=== PATIENT | female | born 1950 | race Caucasian/White ===

== ENCOUNTER 2018-01-05 14:09 | Inpatient (IN) | payer MEDICARE, MEDICAID ==
[~2018-01-05] VITALS: Ht 157.5 cm; Wt 74.8 kg
[2018-01-05 14:30] VITALS: BP 75/49
--- NOTE | 2018-01-05 15:12 | Diagnostic Imaging Report ---
Indication: Unresponsive Comparison: None A single view chest radiograph was obtained. Findings: There is a left pleural effusion. Heart size is normal. Lung volumes are low bilaterally. The bones are osteopenic. IMPRESSION: Small left pleural effusion
[2018-01-05 16:30] VITALS: BP 75/36
[2018-01-05 16:33] LABS: APPEARANCE,URINE SLIGHTLY CLOUDY; BILIRUBIN, URINE NEGATIVE (NEGATIVE); GLUCOSE, URINE (UA) NEGATIVE (NEGATIVE); KETONES,URINE 4+ (NEGATIVE); LEUKOCYTE ESTERASE ,URINE 3+ (NEGATIVE); NITRITE,URINE NEGATIVE (NEGATIVE); PH,URINE 7 (4.5-8.0); PROTEIN,URINE 2+ (NEGATIVE); UROBILINOGEN,URINE NORMAL MG/DL (0.0-1.0)
[2018-01-05 16:39] LABS: HEMATOCRIT 49.6 % (37.0-47.0); HEMOGLOBIN 16.4 G/DL (12.0-16.0); MEAN CORPUSCULAR VOLUME 92 FL (80-99); PLATELET COUNT 318 K/UL (150-450); RED BLOOD COUNT 5.39 M/UL (4.20-5.40); RED CELL DISTRIBUTION WIDTH 13.4 % (11.6-14.8); WHITE BLOOD COUNT 18.7 K/UL (4.8-10.8)
[2018-01-05 16:40] LABS: COLOR,URINE YELLOW
[2018-01-05 16:42] LABS: ANION GAP 20 mmol/L (5-15); BLOOD UREA NITROGEN 46 mg/dL (7-18); CALCIUM 9.5 MG/DL (8.5-10.1); CARBON DIOXIDE 18 MMOL/L (21-32); CHLORIDE 105 MMOL/L (98-107); CREATININE 1.8 MG/DL (0.55-1.30); POTASSIUM 4.2 MMOL/L (3.5-5.1); SODIUM 143 MMOL/L (136-145)
[2018-01-05 16:56] LABS: ALANINE AMINOTRANSFERASE 23 U/L (12-78); ALBUMIN 3.5 G/DL (3.4-5.0); ALBUMIN/GLOBULIN RATIO 0.7 (1.0-2.7); ALKALINE PHOSPHATASE 108 U/L (46-116); ASPARTATE AMINO TRANSFERASE 15 U/L (15-37); BILIRUBIN,TOTAL 0.7 MG/DL (0.2-1.0); CKMB 0.9 NG/ML (0.0-3.6); CREATINE KINASE 29 U/L (26-308)
[2018-01-05] MEDS ORDERED: cefTRIAXone 1 GM in NS 55 ML IVPB ONE (17:00)
[2018-01-05 17:30] VITALS: BP 95/38
[2018-01-05] MEDS ORDERED: UNOBMED (17:39)
--- NOTE | 2018-01-05 18:34 | Emergency Room Report ---
History of Present Illness General Chief Complaint: General Complaint Source: Medical Record, Caregiver Present Illness HPI 67-year-old female presents ED for evaluation. Hris Manager at bedside. States that patient was out today and became suddenly nonverbal and less active than baseline. Patient does have a history of cognitive delay. Patient states she does feel depressed. States that someone in the facility that she was dating is leaving. Denies any suicidal or homicidal ideation. Denies any headache. Denies any chest pain shortness of breath. Denies any fevers or chills. No other aggravating relieving factors. Denies any other associated symptoms Allergies: Coded Allergies: No Known Allergies (Unverified , 01/05/18) Patient History Past Medical History: DM, other - MR Past Surgical History: none Pertinent Family History: none Social History: Denies: smoking, alcohol use, drug use Now: No Immunizations: UTD Reviewed Nursing Documentation: PMH: Agreed; PSxH: Agreed Nursing Documentation-PMH Hx Diabetes: Yes Review of Systems All Other Systems: negative except mentioned in HPI Physical Exam Vital Signs Date Time Temp Pulse Resp B/P (MAP) Pulse Ox O2 Delivery O2 Flow Rate FiO2 01/05/18 13:57 98.4 80 18 110/80 97 Room Air 98.4 Sp02 EP Interpretation: reviewed, normal General Appearance: no apparent distress, alert, GCS 15, non-toxic Head: normocephalic, atraumatic Eyes: bilateral eye normal inspection, bilateral eye PERRL ENT: hearing grossly normal, normal pharynx, no angioedema, normal voice Neck: full range of motion, supple/symm/no masses Respiratory: chest non-tender, lungs clear, normal breath sounds, speaking full sentences Cardiovascular #1: regular rate, rhythm, no edema Cardiovascular #2: 2+ carotid (R), 2+ carotid (L), 2+ radial (R), 2+ radial (L) , 2+ dorsalis pedis (R), 2+ dorsalis pedis (L) Gastrointestinal: normal bowel sounds, non tender, soft, non-distended, no guarding, no rebound Rectal: deferred Genitourinary: normal inspection, no CVA tenderness Musculoskeletal: back normal, gait/station normal, normal range of motion, non- tender Neurologic: alert, oriented x3, responsive, motor strength/tone normal, sensory intact, speech normal Psychiatric: judgement/insight normal, memory normal, mood/affect normal, no suicidal/homicidal ideation Reflexes: 3+ bicep (R), 3+ bicep (L), 3+ tricep (R), 3+ tricep (L), 3+ knee (R) , 3+ knee (L) Skin: normal color, no rash, warm/dry, well hydrated Lymphatic: no adenopathy Medical Decision Making Diagnostic Impression: Primary Impression: Weakness Additional Impressions: UTI (urinary tract infection) Qualified Codes: N39.0 - Urinary tract infection, site not specified Renal insufficiency ER Course Hospital Course 67-year-old female presenting to ED with generalized weakness, less active Differential diagnoses include: Pneumonia, UTI, sepsis, dehydration Clinical course Patient placed on stretcher. On library monitor with stable vitals are ED course. After initial history and physical, I ordered labs, IV fluids, EKG, chest x-ray, blood cultures, UA. Labs - BUN/Cr elevated, noted leukocytosis, troponins negative, UA grossly positive for UTI, lactic ok CXR - L pleural effusion EKG - NSR, no acute ischemic changes interpreted by me Abx given. given IVFs. Case discussed with Dr Murillo and they agreed to admit patient to their service for further care and support I feel this is a highly complex case requiring extensive working including EKG/ Rhythm strip, Xray/CT/US, Blood/urine lab work, repeat exams while in ED, and administration of strong opiates/narcotics for pain control, admission to hospital or close patient follow up. Diagnosis - UTI, generalized weakness, renal insufficiency Patient admitted to floor in serious condition Labs Test 01/05/18 15:35 White Blood Count 18.7 K/UL (4.8-10.8) Red Blood Count 5.39 M/UL (4.20-5.40) Hemoglobin 16.4 G/DL (12.0-16.0) Hematocrit 49.6 % (37.0-47.0) Mean Corpuscular Volume 92 FL (80-99) Mean Corpuscular Hemoglobin 30.4 PG (27.0-31.0) Mean Corpuscular Hemoglobin Concent 33.0 G/DL (32.0-36.0) Red Cell Distribution Width 13.4 % (11.6-14.8) Platelet Count 318 K/UL (150-450) Mean Platelet Volume 6.9 FL (6.5-10.1) Neutrophils (%) (Auto) % (45.0-75.0) Lymphocytes (%) (Auto) % (20.0-45.0) Monocytes (%) (Auto) % (1.0-10.0) Eosinophils (%) (Auto) % (0.0-3.0) Basophils (%) (Auto) % (0.0-2.0) Differential Total Cells Counted 100 Neutrophils % (Manual) 86 % (45-75) Lymphocytes % (Manual) 7 % (20-45) Monocytes % (Manual) 6 % (1-10) Eosinophils % (Manual) 0 % (0-3) Basophils % (Manual) 0 % (0-2) Band Neutrophils 1 % (0-8) Platelet Estimate Adequate Platelet Morphology Normal Red Blood Cell Morphology Normal Urine Color Yellow Urine Appearance Slightly cloudy Urine pH 7 (4.5-8.0) Urine Specific [place] 1.010 (1.005-1.035) Urine Protein 2+ (NEGATIVE) Urine Glucose (UA) Negative (NEGATIVE) Urine Ketones 4+ (NEGATIVE) Urine Occult Blood 2+ (NEGATIVE) Urine Nitrite Negative (NEGATIVE) Urine Bilirubin Negative (NEGATIVE) Urine Urobilinogen Normal MG/DL (0.0-1.0) Urine Leukocyte Esterase 3+ (NEGATIVE) Urine RBC 5-10 /HPF (0 - 2) Urine WBC 20-30 /HPF (0 - 2) Urine Squamous Epithelial Cells Moderate /LPF (NONE/OCC) Urine Amorphous Sediment Few /LPF (NONE) Urine Bacteria Many /HPF (NONE) Sodium Level 143 MMOL/L (136-145) Potassium Level 4.2 MMOL/L (3.5-5.1) Chloride Level 105 MMOL/L (98-107) Carbon Dioxide Level 18 MMOL/L (21-32) Anion Gap 20 mmol/L (5-15) Blood Urea Nitrogen 46 mg/dL (7-18) Creatinine 1.8 MG/DL (0.55-1.30) Estimat Glomerular Filtration Rate 28.3 mL/min (>60) Glucose Level 82 MG/DL (74-106) Lactic Acid Level 1.20 mmol/L (0.4-2.0) Calcium Level 9.5 MG/DL (8.5-10.1) Total Bilirubin 0.7 MG/DL (0.2-1.0) Aspartate Amino Transf (AST/SGOT) 15 U/L (15-37) Alanine Aminotransferase (ALT/SGPT) 23 U/L (12-78) Alkaline Phosphatase 108 U/L (46-116) Total Creatine Kinase 29 U/L (26-308) Creatine Kinase MB 0.9 NG/ML (0.0-3.6) Creatine Kinase MB Relative Index 3.1 Troponin I 0.000 ng/mL (0.000-0.056) Total Protein 8.2 G/DL (6.4-8.2) Albumin 3.5 G/DL (3.4-5.0) Globulin 4.7 g/dL Albumin/Globulin Ratio 0.7 (1.0-2.7) EKG Diagnostic Results Rate: normal Rhythm: NSR ST Segments: no acute changes ASA given to the pt in ED: No Rhythm Strip Diag. Results EP Interpretation: yes Rhythm: NSR, no PVC's, no ectopy Chest X-Ray Diagnostic Results Chest X-Ray Diagnostic Results : Chest X-Ray Ordered: Yes # of Views/Limited/Complete: 1 View Indication: Other - weakness EP Interpretation: Yes Interpretation: no consolidation, no pneumothorax, no acute cardiopulmonary disease, other - L pleural effusion Impression: Other - L pleural effusion Electronically Signed by: Electronically signed by Lazaro Sands MD Last Vital Signs Date Time Temp Pulse Resp B/P (MAP) Pulse Ox O2 Delivery O2 Flow Rate FiO2 01/05/18 17:30 98.1 73 13 95/38 100 Room Air 98.1 Status: improved Disposition: ADMITTED INPATIENT Condition: Serious Referrals: Tino Murillo MD (PCP) Lazaro Sands MD Jan 05, 2018 18:34
[2018-01-05 18:40] VITALS: BP 108/69
[2018-01-05 19:40] VITALS: BP 111/44
[2018-01-05 20:00] VITALS: BP 110/64
[2018-01-05] MEDS ORDERED: LEVOTHYROXINE75 MCG ORAL (20:01)
[2018-01-05] MEDS ORDERED: MULTIVITAMINS1 EAC8 ORAL (20:01)
[2018-01-05] MEDS ORDERED: PANTOPRAZOLE SO40 MG ORAL (20:01)
[2018-01-05] MEDS ORDERED: ACETAMINOPHEN325 M1 ORAL (20:01)
[2018-01-05] MEDS ORDERED: COZAAR50 MG ORAL (20:01)
[2018-01-05] MEDS ORDERED: LYRICA50 MG ORAL (20:01)
[2018-01-05] MEDS ORDERED: ACETAMINOPHEN-1 EAC1 ORAL (20:01)
[2018-01-05] MEDS ORDERED: Tylenol #3 tab (300mg/30mg) ORAL PRN (21:00)
[2018-01-05] MEDS: Heparin 5000 units/ml inj SUBQ SCH (21:52)
[2018-01-06] VITALS: BP 115/71
[2018-01-06 04:00] VITALS: BP 115/74
[2018-01-06] MEDS ORDERED: Cefepime HCl 1 GM in D5W 110 ML IVPB SCH (05:00)
[2018-01-06 08:15] VITALS: BP 107/60
[2018-01-06 09:30] LABS: BASOPHILS % (AUTO) 0.9 % (0.0-2.0); EOSINOPHILS % (AUTO) 1.8 % (0.0-3.0); HEMATOCRIT 39.9 % (37.0-47.0); HEMOGLOBIN 13.1 G/DL (12.0-16.0); LYMPHOCYTES % (AUTO) 29.4 % (20.0-45.0); MEAN CORPUSCULAR VOLUME 93 FL (80-99); MONOCYTES % (AUTO) 7.9 % (1.0-10.0); PLATELET COUNT 262 K/UL (150-450); RED BLOOD COUNT 4.27 M/UL (4.20-5.40); RED CELL DISTRIBUTION WIDTH 13.2 % (11.6-14.8); WHITE BLOOD COUNT 10.4 K/UL (4.8-10.8)
[2018-01-06 09:47] LABS: ALANINE AMINOTRANSFERASE 23 U/L (12-78); ALBUMIN 2.6 G/DL (3.4-5.0); ALBUMIN/GLOBULIN RATIO 0.8 (1.0-2.7); ALKALINE PHOSPHATASE 81 U/L (46-116); ANION GAP 11 mmol/L (5-15); ASPARTATE AMINO TRANSFERASE 13 U/L (15-37); BILIRUBIN,TOTAL 0.3 MG/DL (0.2-1.0); BLOOD UREA NITROGEN 32 mg/dL (7-18); CALCIUM 8.5 MG/DL (8.5-10.1); CARBON DIOXIDE 21 MMOL/L (21-32); CHLORIDE 112 MMOL/L (98-107); POTASSIUM 3.8 MMOL/L (3.5-5.1); SODIUM 144 MMOL/L (136-145)
[2018-01-06] MEDS: Losartan 50mg tab ORAL SCH (11:22)
[2018-01-06] MEDS: Heparin 5000 units/ml inj SUBQ SCH ×2 (11:24→21:30)
[2018-01-06] MEDS: Cefepime HCl 1 GM in D5W 110 ML IVPB SCH ×2 (11:25→21:28)
[2018-01-06] MEDS: Lyrica 50mg cap ORAL SCH ×2 (11:42→17:52)
[2018-01-06 12:00] VITALS: BP 142/63
[2018-01-06 16:00] VITALS: BP 141/67
--- NOTE | 2018-01-06 17:02 | History and Physical Report ---
DATE OF ADMISSION: 01/05/2018 CHIEF COMPLAINT: Acute renal failure, sepsis, and urinary tract infection. HISTORY OF PRESENT ILLNESS: The patient is a pleasant 67-year-old female. She has a history of hypothyroidism, obesity, and bipolar disorder. She was brought in by her caregiver, who complaints of generalized weakness and malaise. The patient on evaluation in the emergency room was hypotensive initially. Her laboratories were significant for an elevated BUN and creatinine. She also had a white count of 18,000. Urinalysis showed 20 to 30 wbc's. The patient is pancultured and has now been started on IV antibiotics and hydration and is now admitted for further evaluation and care. PAST MEDICAL HISTORY: As above. PAST SURGICAL HISTORY: None. CURRENT MEDICATIONS: Reconciled and reviewed. ALLERGIES: None. FAMILY HISTORY: None. SOCIAL HISTORY: Negative for tobacco, ethanol, or drugs. The patient currently resides in a [facility] facility. REVIEW OF SYSTEMS: GENERAL: No fevers or chills. Positive malaise and weakness. HEENT: No headaches or visual changes. CARDIOPULMONARY: No chest pain or shortness of breath. GASTROINTESTINAL: No nausea or vomiting. GENITOURINARY: No urgency or frequency. MUSCULOSKELETAL: No joint pain or swelling. NEUROLOGIC: No evidence of seizures. PHYSICAL EXAMINATION: VITAL SIGNS: Temperature 98, pulse 80, respirations 18, and blood pressure 110/80. GENERAL: The patient is well developed, in no apparent distress. HEART: Regular rate and rhythm. LUNGS: Clear. ABDOMEN: Soft, nontender, and nondistended. EXTREMITIES: Without clubbing, cyanosis, or edema. LABORATORY DATA: UA showed 20 to 30 wbc's. White count was 19,000, hemoglobin 16, and hematocrit 49. Sodium 143, potassium 4.2, chloride 105, bicarb 18, BUN 46, and creatinine is 1.8. ASSESSMENT: This is a pleasant female admitted with complaints of sepsis secondary to urinary tract infection. She has acute renal failure, it is likely secondary to dehydration as well as toxic metabolic encephalopathy secondary to the above. PLAN: IV hydration. IV antibiotics. Follow up cultures. Renal ultrasound if renal function does not improve. ID consultation will be obtained. Tino Murillo M.D. DR: MIRNA JOB#: [id number] CC:
[2018-01-06 20:00] VITALS: BP 120/65
[2018-01-07] VITALS: BP 103/57
[2018-01-07 04:00] VITALS: BP 123/75
[2018-01-07 08:00] VITALS: BP 130/67
--- NOTE | 2018-01-07 08:13 | General Progress Note ---
Assessment/Plan Problem List: (1) Renal insufficiency ICD Codes: N28.9 - Disorder of kidney and ureter, unspecified SNOMED: 862502911, 397409668 (2) UTI (urinary tract infection) ICD Codes: N39.0 - Urinary tract infection, site not specified SNOMED: 86319193, 721619328 Qualifiers: Qualified Codes: N39.0 - Urinary tract infection, site not specified (3) Failure to thrive SNOMED: 65073596 (4) Weakness ICD Codes: R53.1 - Weakness SNOMED: 06398422, 141598810 Status: stable, progressing Assessment/Plan cont iv abx follow up cultures monitor renal fxn psych eval verified with snf that boyfriend is not leaving her facility Subjective ROS Limited/Unobtainable: No Constitutional: Reports: malaise, weakness HEENT: Reports: no symptoms Cardiovascular: Reports: no symptoms Respiratory: Reports: no symptoms Gastrointestinal/Abdominal: Reports: no symptoms Genitourinary: Reports: no symptoms Neurologic/Psychiatric: Reports: depressed, emotional problems Endocrine: Reports: no symptoms Hematologic/Lymphatic: Reports: no symptoms Allergies: Coded Allergies: No Known Allergies (Unverified , 01/05/18) All Systems: reviewed and negative except above Subjective depressed because boyfriend is moving out from her [facility]. wbc better. renal fxn better. ucx with gnr Objective Last 24 Hour Vital Signs Date Time Temp Pulse Resp B/P (MAP) Pulse Ox O2 Delivery O2 Flow Rate FiO2 01/07/18 04:00 98.1 72 18 123/75 (91) 96 98.1 01/07/18 00:00 97.9 69 18 103/57 (72) 99 97.9 01/06/18 21:00 Room Air 01/06/18 20:00 97.0 68 18 120/65 (83) 95 97.0 01/06/18 16:00 98.5 75 17 141/67 (91) 99 98.5 01/06/18 12:00 98.4 85 19 142/63 (89) 99 98.4 01/06/18 11:22 110/67 01/06/18 09:00 Room Air 01/06/18 08:15 98.2 69 18 107/60 (76) 97 98.2 Intake and Output 01/06/18 01/07/18 19:00 07:00 Intake Total 950 ml 280 ml Balance 950 ml 280 ml Intake Oral 60 ml IV Total 220 ml Other 950 ml # Voids 3 6 Laboratory Tests 01/06/18 09:10: White Blood Count 10.4, Red Blood Count 4.27, Hemoglobin 13.1, Hematocrit 39.9, Mean Corpuscular Volume 93, Mean Corpuscular Hemoglobin 30.6, Mean Corpuscular Hemoglobin Concent 32.8, Red Cell Distribution Width 13.2, Platelet Count 262, Mean Platelet Volume 7.6, Neutrophils (%) (Auto) 60.0, Lymphocytes (%) (Auto) 29.4, Monocytes (%) (Auto) 7.9, Eosinophils (%) (Auto) 1.8, Basophils (%) (Auto ) 0.9, Sodium Level 144, Potassium Level 3.8, Chloride Level 112H, Carbon Dioxide Level 21, Anion Gap 11, Blood Urea Nitrogen 32H, Creatinine 1.0, Estimat Glomerular Filtration Rate 55.7, Glucose Level 102, Calcium Level 8.5, Total Bilirubin 0.3, Aspartate Amino Transf (AST/SGOT) 13L, Alanine Aminotransferase (ALT/SGPT) 23, Alkaline Phosphatase 81, Total Protein 6.0L, Albumin 2.6L, Globulin 3.4, Albumin/Globulin Ratio 0.8L Height (Feet): 5 Height (Inches): 2.00 Weight (Pounds): 165 General Appearance: WD/WN, alert Neck: supple Cardiovascular: normal rate, regular rhythm Respiratory/Chest: chest wall non-tender, lungs clear, normal breath sounds Abdomen: normal bowel sounds, non tender, soft Edema: no edema noted Arm (L), no edema noted Arm (R), no edema noted Leg (L), no edema noted Leg (R), no edema noted Pedal (L), no edema noted Pedal (R), no edema noted Generalized Tino Murillo MD Jan 07, 2018 08:13
[2018-01-07] MEDS: Losartan 50mg tab ORAL SCH (09:47)
[2018-01-07] MEDS: Lyrica 50mg cap ORAL SCH ×2 (09:47→17:34)
[2018-01-07] MEDS: Cefepime HCl 1 GM in D5W 110 ML IVPB SCH ×2 (09:48→20:56)
[2018-01-07] MEDS: Heparin 5000 units/ml inj SUBQ SCH ×2 (09:53→21:07)
[2018-01-07 12:00] VITALS: BP 140/71
[2018-01-07] MEDS ORDERED: 1/2 NS 1000ml IV ONE (14:14)
[2018-01-07 16:00] VITALS: BP 132/63
[2018-01-07 20:00] VITALS: BP 123/56
--- NOTE | 2018-01-07 20:37 | Consultation ---
History of Present Illness General Date patient seen: Jan 07, 2018 Chief Complaint: General Complaint Present Illness HPI 67-year-old female with history of hypothyroidism, obesity, and bipolar disorder who is admitted for medical stabilization. The pt is depressed and has anhedonia. the pt was min verbal and was not engaged she stated that she has been depressed for couple of months. she denied si/hi. no psychotic sxs Allergies: Coded Allergies: No Known Allergies (Unverified , 01/05/18) Medication History Scheduled Levothyroxine Sodium* (Levothyroxine Sodium*), 75 MCG ORAL DAILY, (Reported) Losartan Potassium* (Cozaar*), 50 MG ORAL DAILY, (Reported) Multivitamin With Minerals (Multivitamins With Minerals*), 1 TAB ORAL DAILY, ( Reported) Pantoprazole* (Pantoprazole*), 40 MG ORAL DAILY, (Reported) Pregabalin (Lyrica), 50 MG ORAL BID, (Reported) Scheduled PRN Acetaminophen With Codeine (T#3) (Tylenol #3 Tab*), 1 TAB ORAL EVERY 8 HOURS PRN for For Pain, (Reported) Acetaminophen* (Acetaminophen 325MG Tablet*), 650 MG ORAL Q4H PRN for Mild Pain (Pain Scale 1-3), (Reported) Miscellaneous Medications Unable to Obtain Medications (Unable To Obtain Meds), (Reported) Patient History Limited by: medical condition History Provided By: Patient, Medical Record, PMD Healthcare decision maker Resuscitation status Full Code Advanced Directive on File Past Medical/Surgical History Past Medical/Surgical History: (1) Renal insufficiency (2) UTI (urinary tract infection) (3) Failure to thrive (4) Weakness Review of Systems Psychiatric: Reports: prior hx, depressed feelings, emotional problems Physical Exam General Appearance: no apparent distress, alert, overweight Neurologic: oriented x 3, responsive, depressed affect Last 24 Hour Vital Signs Date Time Temp Pulse Resp B/P (MAP) Pulse Ox O2 Delivery O2 Flow Rate FiO2 01/07/18 16:00 98.1 68 14 132/63 (86) 94 98.1 01/07/18 12:00 98.2 75 15 140/71 (94) 96 98.2 01/07/18 09:47 130/67 01/07/18 09:00 Room Air 01/07/18 08:00 98.2 67 15 130/67 (88) 95 98.2 7/13/18 04:00 98.1 72 18 123/75 (91) 96 98.1 01/07/18 00:00 97.9 69 18 103/57 (72) 99 97.9 01/06/18 21:00 Room Air Intake and Output 01/06/18 01/07/18 19:00 07:00 Intake Total 950 ml 280 ml Balance 950 ml 280 ml Intake Oral 60 ml IV Total 220 ml Other 950 ml # Voids 3 6 Height (Feet): 5 Height (Inches): 2.00 Weight (Pounds): 165 Medications Current Medications Medications (Trade) Dose Ordered Sig/Geoffrey Route PRN Reason Start Time Stop Time Status Last Admin Dose Admin Acetaminophen (Tylenol) 650 mg Q4H PRN ORAL Mild Pain/Temp > 100.5 01/05/18 21:00 02/04/18 20:59 Acetaminophen/ Codeine Phosphate (Tylenol #3) 1 tab Q8H PRN ORAL for moderate to severe pain 01/05/18 21:00 01/12/18 20:59 Cefepime HCl 1 gm/ Dextrose 110 ml @ 220 mls/hr Q12H IVPB 01/06/18 08:00 01/13/18 07:59 01/07/18 09:48 Heparin Sodium (Porcine) (Heparin 5000 units/ml) 5,000 units EVERY 12 HOURS SUBQ 01/05/18 21:00 02/04/18 20:59 01/07/18 09:53 Levothyroxine Sodium (Synthroid) 75 mcg DAILY@0630 ORAL 01/06/18 06:30 02/05/18 06:29 01/07/18 05:47 Losartan Potassium (Cozaar) 50 mg DAILY ORAL 01/06/18 09:00 02/05/18 08:59 01/07/18 09:47 Pantoprazole (Protonix) 40 mg DAILY ORAL 01/06/18 09:00 02/05/18 08:59 01/07/18 09:46 Pregabalin (Lyrica) 50 mg BID ORAL 01/06/18 09:00 02/05/18 08:59 01/07/18 17:34 Assessment/Plan Assessment/Plan Bipolar d/o currently depressed -kailyn xl -seroquel -provided pino/Cony Murillo MD Jan 07, 2018 20:37
[2018-01-08] VITALS: BP 107/55
[2018-01-08 04:00] VITALS: BP 123/67
--- NOTE | 2018-01-08 07:59 | General Progress Note ---
Assessment/Plan Problem List: (1) Renal insufficiency ICD Codes: N28.9 - Disorder of kidney and ureter, unspecified SNOMED: 281096706, 410315860 (2) UTI (urinary tract infection) ICD Codes: N39.0 - Urinary tract infection, site not specified SNOMED: 26252162, 319540633 Qualifiers: Qualified Codes: N39.0 - Urinary tract infection, site not specified (3) Failure to thrive SNOMED: 57587245 (4) Weakness ICD Codes: R53.1 - Weakness SNOMED: 46274137, 770137571 Status: stable, progressing Assessment/Plan cont iv abx follow up cultures monitor renal fxn psych eval verified with snf that boyfriend is not leaving her facility dc planing wednesday Subjective ROS Limited/Unobtainable: No Constitutional: Reports: malaise, weakness HEENT: Reports: no symptoms Cardiovascular: Reports: no symptoms Respiratory: Reports: no symptoms Gastrointestinal/Abdominal: Reports: no symptoms Genitourinary: Reports: no symptoms Neurologic/Psychiatric: Reports: depressed Endocrine: Reports: no symptoms Hematologic/Lymphatic: Reports: no symptoms Allergies: Coded Allergies: No Known Allergies (Unverified , 01/05/18) All Systems: reviewed and negative except above Subjective no new complaints. psych appreciated. ucx noted. labs improving Objective Last 24 Hour Vital Signs Date Time Temp Pulse Resp B/P (MAP) Pulse Ox O2 Delivery O2 Flow Rate FiO2 01/08/18 04:00 98.2 76 18 123/67 (85) 96 98.2 01/08/18 00:00 98.0 73 18 107/55 (72) 99 98.0 01/07/18 21:00 Room Air 01/07/18 20:00 98.0 61 18 123/56 (78) 98 98.0 01/07/18 16:00 98.1 68 14 132/63 (86) 94 98.1 01/07/18 12:00 98.2 75 15 140/71 (94) 96 98.2 01/07/18 09:47 130/67 01/07/18 09:00 Room Air 01/07/18 08:00 98.2 67 15 130/67 (88) 95 98.2 Intake and Output 01/07/18 01/08/18 19:00 07:00 Intake Total 240 ml 280 ml Balance 240 ml 280 ml Intake Oral 240 ml 60 ml IV Total 220 ml # Voids 3 3 Height (Feet): 5 Height (Inches): 2.00 Weight (Pounds): 165 Objective General Appearance: WD/WN, alert Neck: supple Cardiovascular: normal rate, regular rhythm Respiratory/Chest: chest wall non-tender, lungs clear, normal breath sounds Abdomen: normal bowel sounds, non tender, soft Edema: no edema noted Arm (L), no edema noted Arm (R), no edema noted Leg (L), no edema noted Leg (R), no edema noted Pedal (L), no edema noted Pedal (R), no edema noted Generalized Tino Murillo MD Jan 08, 2018 07:59
[2018-01-08 08:00] VITALS: BP 135/70
[2018-01-08] MEDS: Cefepime HCl 1 GM in D5W 110 ML IVPB SCH ×2 (09:05→21:16)
[2018-01-08] MEDS: BuPROPion XL 150mg tab ORAL SCH (09:05)
[2018-01-08] MEDS: Losartan 50mg tab ORAL SCH (09:06)
[2018-01-08] MEDS: Heparin 5000 units/ml inj SUBQ SCH ×2 (09:07→21:27)
[2018-01-08] MEDS: Lyrica 50mg cap ORAL SCH ×2 (09:07→17:56)
[2018-01-08 12:00] VITALS: BP 147/70
[2018-01-08 16:00] VITALS: BP 128/70
[2018-01-08 20:00] VITALS: BP 129/62
[2018-01-09] VITALS: BP 108/60
[2018-01-09 04:00] VITALS: BP 108/52
[2018-01-09 08:00] VITALS: BP 140/76
[2018-01-09] MEDS: Losartan 50mg tab ORAL SCH (08:49)
[2018-01-09] MEDS: Cefepime HCl 1 GM in D5W 110 ML IVPB SCH ×2 (08:49→20:20)
[2018-01-09] MEDS: BuPROPion XL 150mg tab ORAL SCH (08:49)
[2018-01-09] MEDS: Heparin 5000 units/ml inj SUBQ SCH ×2 (08:50→20:22)
[2018-01-09] MEDS: Lyrica 50mg cap ORAL SCH ×2 (08:50→17:31)
--- NOTE | 2018-01-09 10:58 | General Progress Note ---
Assessment/Plan Problem List: (1) Renal insufficiency ICD Codes: N28.9 - Disorder of kidney and ureter, unspecified SNOMED: 270378024, 702227834 (2) UTI (urinary tract infection) ICD Codes: N39.0 - Urinary tract infection, site not specified SNOMED: 19064360, 857472589 Qualifiers: Qualified Codes: N39.0 - Urinary tract infection, site not specified (3) Failure to thrive SNOMED: 43308973 (4) Weakness ICD Codes: R53.1 - Weakness SNOMED: 75424913, 802928759 Status: stable, progressing Assessment/Plan cont iv abx follow up cultures monitor renal fxn psych eval appreciated repeat labs dc planing wednesday Subjective ROS Limited/Unobtainable: No Constitutional: Reports: malaise, weakness HEENT: Reports: no symptoms Cardiovascular: Reports: no symptoms Respiratory: Reports: no symptoms Gastrointestinal/Abdominal: Reports: no symptoms Genitourinary: Reports: no symptoms Neurologic/Psychiatric: Reports: no symptoms Endocrine: Reports: no symptoms Hematologic/Lymphatic: Reports: no symptoms Allergies: Coded Allergies: No Known Allergies (Unverified , 01/05/18) All Systems: reviewed and negative except above Subjective no new complaints. psych appreciated. ucx noted. labs improving Objective Last 24 Hour Vital Signs Date Time Temp Pulse Resp B/P (MAP) Pulse Ox O2 Delivery O2 Flow Rate FiO2 01/09/18 09:00 Room Air 01/09/18 08:49 140/76 01/09/18 08:00 97.2 82 20 140/76 (97) 94 97.2 01/09/18 04:00 97.6 67 20 108/52 (70) 94 97.6 01/09/18 00:00 98.1 71 20 108/60 (76) 93 98.1 01/08/18 21:00 Room Air 01/08/18 20:00 98.2 71 20 129/62 (84) 95 98.2 01/08/18 16:00 97.1 77 18 128/70 (89) 96 97.1 01/08/18 12:00 98.1 95 18 147/70 (95) 96 98.1 Intake and Output 01/08/18 01/09/18 19:00 07:00 Intake Total 480 ml 130 ml Output Total 400 ml Balance 480 ml -270 ml Intake Oral 480 ml 20 ml IV Total 110 ml Output Urine Total 400 ml # Voids 3 Height (Feet): 5 Height (Inches): 2.00 Weight (Pounds): 165 Objective General Appearance: WD/WN, alert Neck: supple Cardiovascular: normal rate, regular rhythm Respiratory/Chest: chest wall non-tender, lungs clear, normal breath sounds Abdomen: normal bowel sounds, non tender, soft Edema: no edema noted Arm (L), no edema noted Arm (R), no edema noted Leg (L), no edema noted Leg (R), no edema noted Pedal (L), no edema noted Pedal (R), no edema noted Generalized Tino Murillo MD Jan 09, 2018 10:58
[2018-01-09 11:43] LABS: BASOPHILS % (AUTO) 0.9 % (0.0-2.0); EOSINOPHILS % (AUTO) 2.4 % (0.0-3.0); HEMATOCRIT 44.2 % (37.0-47.0); HEMOGLOBIN 14.4 G/DL (12.0-16.0); LYMPHOCYTES % (AUTO) 21.9 % (20.0-45.0); MEAN CORPUSCULAR VOLUME 93 FL (80-99); MONOCYTES % (AUTO) 6.4 % (1.0-10.0); NEUTROPHILS % (AUTO) 68.3 % (45.0-75.0); PLATELET COUNT 260 K/UL (150-450); RED BLOOD COUNT 4.76 M/UL (4.20-5.40); RED CELL DISTRIBUTION WIDTH 13.2 % (11.6-14.8); WHITE BLOOD COUNT 10.2 K/UL (4.8-10.8)
[2018-01-09 12:00] VITALS: BP 110/76
[2018-01-09 12:05] LABS: ALANINE AMINOTRANSFERASE 26 U/L (12-78); ALBUMIN 2.8 G/DL (3.4-5.0); ALBUMIN/GLOBULIN RATIO 0.7 (1.0-2.7); ALKALINE PHOSPHATASE 84 U/L (46-116); ANION GAP 10 mmol/L (5-15); ASPARTATE AMINO TRANSFERASE 14 U/L (15-37); BILIRUBIN,TOTAL 0.3 MG/DL (0.2-1.0); BLOOD UREA NITROGEN 14 mg/dL (7-18); CALCIUM 8.9 MG/DL (8.5-10.1); CARBON DIOXIDE 24 MMOL/L (21-32); CHLORIDE 109 MMOL/L (98-107); CREATININE 0.8 MG/DL (0.55-1.30); POTASSIUM 3.5 MMOL/L (3.5-5.1); SODIUM 143 MMOL/L (136-145)
--- NOTE | 2018-01-09 12:28 | Cardiology Report ---
APPROVED REPORT EKG Measurement Heart [id number] Normal sinus rhythm Left axis deviation Nonspecific ST and T wave abnormality Abnormal ECG
[2018-01-09 16:00] VITALS: BP 126/65
[2018-01-09] MEDS ORDERED: NS 275ml ONE (16:38)
[2018-01-09 20:00] VITALS: BP 138/66
--- NOTE | 2018-01-09 23:55 | General Progress Note ---
Subjective Allergies: Coded Allergies: No Known Allergies (Unverified , 01/05/18) Objective Last 24 Hour Vital Signs Date Time Temp Pulse Resp B/P (MAP) Pulse Ox O2 Delivery O2 Flow Rate FiO2 01/09/18 21:00 Room Air 01/09/18 20:00 98.1 67 22 138/66 (90) 93 98.1 01/09/18 16:00 98.3 82 20 126/65 (85) 94 98.3 01/09/18 12:00 98.6 96 20 110/76 (87) 94 98.6 01/09/18 09:00 Room Air 01/09/18 08:49 140/76 01/09/18 08:00 97.2 82 20 140/76 (97) 94 97.2 01/09/18 04:00 97.6 67 20 108/52 (70) 94 97.6 01/09/18 00:00 98.1 71 20 108/60 (76) 93 98.1 Intake and Output 01/08/18 01/09/18 19:00 07:00 Intake Total 480 ml 130 ml Output Total 400 ml Balance 480 ml -270 ml Intake Oral 480 ml 20 ml IV Total 110 ml Output Urine Total 400 ml # Voids 3 Laboratory Tests 01/09/18 11:35: White Blood Count 10.2, Red Blood Count 4.76, Hemoglobin 14.4, Hematocrit 44.2, Mean Corpuscular Volume 93, Mean Corpuscular Hemoglobin 30.4, Mean Corpuscular Hemoglobin Concent 32.7, Red Cell Distribution Width 13.2, Platelet Count 260, Mean Platelet Volume 8.0, Neutrophils (%) (Auto) 68.3, Lymphocytes (%) (Auto) 21.9, Monocytes (%) (Auto) 6.4, Eosinophils (%) (Auto) 2.4, Basophils (%) (Auto ) 0.9, Sodium Level 143, Potassium Level 3.5, Chloride Level 109H, Carbon Dioxide Level 24, Anion Gap 10, Blood Urea Nitrogen 14, Creatinine 0.8, Estimat Glomerular Filtration Rate > 60, Glucose Level 120H, Calcium Level 8.9, Total Bilirubin 0.3, Aspartate Amino Transf (AST/SGOT) 14L, Alanine Aminotransferase ( ALT/SGPT) 26, Alkaline Phosphatase 84, Total Protein 6.6, Albumin 2.8L, Globulin 3.8, Albumin/Globulin Ratio 0.7L Height (Feet): 5 Height (Inches): 2.00 Weight (Pounds): 165 Cony Coto MD Jan 09, 2018 23:55
[2018-01-10] VITALS: BP 100/57
[2018-01-10 04:00] VITALS: BP 125/64
[2018-01-10 08:00] VITALS: BP 127/64
[2018-01-10] MEDS: BuPROPion XL 150mg tab ORAL SCH (08:26)
[2018-01-10] MEDS: Lyrica 50mg cap ORAL SCH (08:26)
[2018-01-10] MEDS: Losartan 50mg tab ORAL SCH (08:26)
[2018-01-10] MEDS: Cefepime HCl 1 GM in D5W 110 ML IVPB SCH (08:27)
[2018-01-10] MEDS: Heparin 5000 units/ml inj SUBQ SCH (08:29)
[2018-01-10 12:00] VITALS: BP 100/64
--- NOTE | 2018-01-11 02:15 | Discharge Summary ---
DATE OF ADMISSION: 01/05/2018 DATE OF DISCHARGE: 01/10/2018 NOTE: INCOMPLETE DICTATION ADMISSION DIAGNOSES: 1. Sepsis. 2. Acute renal failure. 3. Dehydration. 4. Toxic metabolic encephalopathy. 5. Urinary tract infection. 6. Hypothyroidism. DISCHARGE DIAGNOSES: 1. Sepsis. 2. Acute renal failure. 3. Dehydration. 4. Toxic metabolic encephalopathy. 5. Urinary tract infection. 6. Hypothyroidism. Tino Murillo M.D. DR: MIRNA JOB#: [id number] CC:
== END 2018-01-10 16:49 | DRG 871 ==
LOC: EDBD 14:09 → EMR 14:40 → 4E 16:15 → EDBEDREQ 16:22 → 4E 01-06 19:00
DX: A41.9 Sepsis, unspecified organism (principal); G92 Toxic encephalopathy; N39.0 Urinary tract infection, site not specified; N17.9 Acute kidney failure, unspecified; E03.9 Hypothyroidism, unspecified; E66.9 Obesity, unspecified; E86.0 Dehydration; F31.9 Bipolar disorder, unspecified; R62.7 Adult failure to thrive
CPT/HCPCS: 36415; 71045; 80053; 81003; 82550; 82553; 82962; 83605; 84484; 85007; 85025; 87040; 87081; 87086; 87181; 93005; 99285

== ENCOUNTER 2020-04-07 11:58 | Inpatient (IN) | payer MEDICARE, MEDICAID ==
[~2020-04-07] VITALS: Ht 160 cm; Wt 53.4 kg
[~2020-04-07 11:58] MED LIST: ACETAMINOPHEN-1 EAC1 ORAL; ACETAMINOPHEN325 M1 ORAL; COZAAR50 MG ORAL; LEVOTHYROXINE75 MCG ORAL; LYRICA50 MG ORAL; MULTIVITAMINS1 EAC8 ORAL; PANTOPRAZOLE SO40 MG ORAL; UNOBMED
[2020-04-07] MEDS ORDERED: CATAPRES0.1 MG ORAL (12:09)
[2020-04-07] MEDS ORDERED: DOCUSIL100 M1 ORAL (12:09)
--- NOTE | 2020-04-07 12:10 | NUR ---
ED Nurse Note: Pt brought in by ambulance from [facility] c/o dysphagia and poor PO intake. Pt A+Ox1 @ baseline. Respirations even and unlabored on room air. Vitals stable as documented.
--- NOTE | 2020-04-07 12:48 | NUR ---
ED Nurse Note: urine sent to lab
--- NOTE | 2020-04-07 12:57 | Emergency Room Report ---
History of Present Illness General Chief Complaint: Generalized Weakness Source: Medical Record, EMS Present Illness HPI Patient is a 70-year-old female multiple medical history brought in from her extended care facility by EMS for failure to thrive and dysphasia. Per EMS patient has not been eating and there is a possibility of placing a feeding tube for the patient. Patient is alert and oriented x1. She is very confused and does not know why she is here. Allergies: Coded Allergies: No Known Allergies (Unverified , 01/05/18) COVID-19 Screening Contact w/high risk pt: No Experienced COVID-19 symptoms?: No COVID-19 Testing performed INPUT OUTPUT CLERK: Yes - Feb 2020 COVID-19 Screening: Negative COVID-19 COVID-19 Testing Source: SNF Patient History Now: No Reviewed Nursing Documentation: PMH: Agreed; PSxH: Agreed Nursing Documentation-PMH Hx Cardiac Problems: Yes Hx Hypertension: Yes Hx Diabetes: Yes Hx Cancer: No Hx Gastrointestinal Problems: Yes Hx Neurological Problems: No Review of Systems All Other Systems: limited - confusion Physical Exam Vital Signs Date Time Temp Pulse Resp B/P (MAP) Pulse Ox O2 Delivery O2 Flow Rate FiO2 04/07/20 11:58 98.4 80 20 134/90 (105) 98 Room Air Sp02 EP Interpretation: reviewed, normal General Appearance: no apparent distress, obese, Chronically Ill Head: normocephalic, atraumatic Eyes: bilateral eye PERRL, bilateral eye EOMI ENT: EOM grossly intact, dry mucus membranes Neck: full range of motion, no meningismus Respiratory: chest non-tender, lungs clear, normal breath sounds, no respiratory distress, no accessory muscle use Cardiovascular #1: regular rate, rhythm Gastrointestinal: non tender, soft, no guarding, no rebound Rectal: deferred Musculoskeletal: no lower extremity edema Neurologic: gray mixing operator III-XII nml as tested, other - Alert and oriented x1 to person Psychiatric: no suicidal/homicidal ideation Lymphatic: no adenopathy Medical Decision Making Diagnostic Impression: Primary Impression: Failure to thrive Additional Impression: Hypokalemia ER Course Patient given IV fluids. Patient hypokalemic with potassium of 2.6. IV potassium chloride has been ordered. Patient is apparently not eating and therefore will be evaluated for possible G-tube placement. Patient admitted for further treatment and evaluation. Labs Test 04/07/20 12:05 04/07/20 12:12 04/07/20 12:40 04/07/20 14:05 White Blood Count 11.1 K/UL (4.8-10.8) Red Blood Count 5.09 M/UL (4.20-5.40) Hemoglobin 15.7 G/DL (12.0-16.0) Hematocrit 46.7 % (37.0-47.0) Mean Corpuscular Volume 92 FL (80-99) Mean Corpuscular Hemoglobin 30.9 PG (27.0-31.0) Mean Corpuscular Hemoglobin Concent 33.7 G/DL (32.0-36.0) Red Cell Distribution Width 13.6 % (11.6-14.8) Platelet Count 317 K/UL (150-450) Mean Platelet Volume 7.4 FL (6.5-10.1) Neutrophils (%) (Auto) 61.6 % (45.0-75.0) Lymphocytes (%) (Auto) 27.6 % (20.0-45.0) Monocytes (%) (Auto) 5.4 % (1.0-10.0) Eosinophils (%) (Auto) 3.5 % (0.0-3.0) Basophils (%) (Auto) 1.9 % (0.0-2.0) Prothrombin Time 12.2 SEC (9.30-11.50) Prothromb Time International Ratio 1.1 (0.9-1.1) Activated Partial Thromboplast Time 29 SEC (23-33) Arterial Blood pH 7.326 (7.350-7.450) Arterial Blood Partial Pressure CO2 35.8 mmHg (35.0-45.0) Arterial Blood Partial Pressure O2 79.2 mmHg (75.0-100.0) Arterial Blood HCO3 18.3 mmol/L (22.0-26.0) Arterial Blood Oxygen Saturation 95.6 % (95-100) Arterial Blood Base Excess -6.9 (-2-2) Anderson Test Positive Urine Color Yellow Urine Appearance Clear Urine pH 6 (4.5-8.0) Urine Specific [place] 1.015 (1.005-1.035) Urine Protein 3+ (NEGATIVE) Urine Glucose (UA) Negative (NEGATIVE) Urine Ketones 4+ (NEGATIVE) Urine Blood 5+ (NEGATIVE) Urine Nitrite Negative (NEGATIVE) Urine Bilirubin Negative (NEGATIVE) Urine Urobilinogen Normal MG/DL (0.0-1.0) Urine Leukocyte Esterase Negative (NEGATIVE) Urine RBC 15-20 /HPF (0 - 2) Urine WBC 0-2 /HPF (0 - 2) Urine Squamous Epithelial Cells Few /LPF (NONE/OCC) Urine Bacteria Few /HPF (NONE) Sodium Level 143 MMOL/L (136-145) Potassium Level 2.6 MMOL/L (3.5-5.1) Chloride Level 107 MMOL/L (98-107) Carbon Dioxide Level 17 MMOL/L (21-32) Anion Gap 19 mmol/L (5-15) Blood Urea Nitrogen 8 mg/dL (7-18) Creatinine 0.8 MG/DL (0.55-1.30) Estimat Glomerular Filtration Rate > 60 mL/min (>60) Glucose Level 79 MG/DL (74-106) Lactic Acid Level 0.60 mmol/L (0.4-2.0) Calcium Level 8.8 MG/DL (8.5-10.1) Magnesium Level 1.8 MG/DL (1.8-2.4) Total Bilirubin 0.5 MG/DL (0.2-1.0) Aspartate Amino Transf (AST/SGOT) 14 U/L (15-37) Alanine Aminotransferase (ALT/SGPT) 10 U/L (12-78) Alkaline Phosphatase 55 U/L (46-116) Creatine Kinase MB 3.9 NG/ML (0.0-3.6) Troponin I 0.000 ng/mL (0.000-0.056) Pro-B-Type Natriuretic Peptide 376 pg/mL (0-125) Total Protein 6.6 G/DL (6.4-8.2) Albumin 2.7 G/DL (3.4-5.0) Globulin 3.9 g/dL Albumin/Globulin Ratio 0.7 (1.0-2.7) Test 04/08/20 07:30 04/09/20 06:06 White Blood Count 10.2 K/UL (4.8-10.8) 10.2 K/UL (4.8-10.8) Red Blood Count 4.49 M/UL (4.20-5.40) 4.59 M/UL (4.20-5.40) Hemoglobin 13.8 G/DL (12.0-16.0) 13.9 G/DL (12.0-16.0) Hematocrit 41.0 % (37.0-47.0) 42.4 % (37.0-47.0) Mean Corpuscular Volume 91 FL (80-99) 92 FL (80-99) Mean Corpuscular Hemoglobin 30.6 PG (27.0-31.0) 30.3 PG (27.0-31.0) Mean Corpuscular Hemoglobin Concent 33.6 G/DL (32.0-36.0) 32.8 G/DL (32.0-36.0) Red Cell Distribution Width 13.6 % (11.6-14.8) 13.8 % (11.6-14.8) Platelet Count 282 K/UL (150-450) 244 K/UL (150-450) Mean Platelet Volume 6.8 FL (6.5-10.1) 6.9 FL (6.5-10.1) Neutrophils (%) (Auto) 62.9 % (45.0-75.0) 59.8 % (45.0-75.0) Lymphocytes (%) (Auto) 23.6 % (20.0-45.0) 26.1 % (20.0-45.0) Monocytes (%) (Auto) 7.7 % (1.0-10.0) 9.8 % (1.0-10.0) Eosinophils (%) (Auto) 4.0 % (0.0-3.0) 2.6 % (0.0-3.0) Basophils (%) (Auto) 1.8 % (0.0-2.0) 1.7 % (0.0-2.0) Sodium Level 144 MMOL/L (136-145) 146 MMOL/L (136-145) Potassium Level 3.2 MMOL/L (3.5-5.1) 3.3 MMOL/L (3.5-5.1) Chloride Level 110 MMOL/L (98-107) 115 MMOL/L (98-107) Carbon Dioxide Level 22 MMOL/L (21-32) 21 MMOL/L (21-32) Anion Gap 12 mmol/L (5-15) 10 mmol/L (5-15) Blood Urea Nitrogen 6 mg/dL (7-18) 6 mg/dL (7-18) Creatinine 0.9 MG/DL (0.55-1.30) 1.2 MG/DL (0.55-1.30) Estimat Glomerular Filtration Rate > 60 mL/min (>60) 44.7 mL/min (>60) Glucose Level 127 MG/DL (74-106) 102 MG/DL (74-106) Calcium Level 9.0 MG/DL (8.5-10.1) 9.0 MG/DL (8.5-10.1) Magnesium Level 1.8 MG/DL (1.8-2.4) 1.6 MG/DL (1.8-2.4) Total Bilirubin 0.4 MG/DL (0.2-1.0) Aspartate Amino Transf (AST/SGOT) 16 U/L (15-37) Alanine Aminotransferase (ALT/SGPT) 11 U/L (12-78) Alkaline Phosphatase 55 U/L (46-116) Total Protein 6.3 G/DL (6.4-8.2) Albumin 2.6 G/DL (3.4-5.0) Globulin 3.7 g/dL Albumin/Globulin Ratio 0.7 (1.0-2.7) Thyroid Stimulating Hormone (TSH) 4.909 uiU/mL (0.358-3.740) Prothrombin Time 12.7 SEC (9.30-11.50) Prothromb Time International Ratio 1.2 (0.9-1.1) Activated Partial Thromboplast Time 28 SEC (23-33) EKG Diagnostic Results Troponin ordered: Yes When was troponin ordered?: Apr 07, 2020 EKG Time: 12:16 EP Interpretation: Aaliyah Hernandez MD Rate: normal - 79 bpm Rhythm: NSR ST Segments: no acute changes ASA given to the pt in ED: No Rhythm Strip Diag. Results Rhythm Strip Time: 12:56 EP Interpretation: yes - Aaliyah Hernandez MD Rate: 80 bpm Rhythm: NSR, no PVC's, no ectopy Chest X-Ray Diagnostic Results Chest X-Ray Diagnostic Results : Chest X-Ray Ordered: Yes # of Views/Limited/Complete: 1 View Indication: Other - failure to thrive EP Interpretation: Yes Interpretation: no consolidation, no effusion, no pneumothorax, no acute cardiopulmonary disease Impression: No acute disease Electronically Signed by: Aaliyah Hernandez MD Last Vital Signs Date Time Temp Pulse Resp B/P (MAP) Pulse Ox O2 Delivery O2 Flow Rate FiO2 04/07/20 11:58 98.4 80 20 134/90 (105) 98 Room Air Disposition: ADMITTED INPATIENT Condition: Critical Physician Consult: Dr. Murillo at 145pm Referrals: Tino Murillo MD (PCP) Additional Instructions: Please note that this report is being documented using Perkle technology. This can lead to erroneous entry secondary to incorrect interpretation by the dictating instrument. Aaliyah Hernandez M.D. Apr 07, 2020 12:57
[2020-04-07 13:05] LABS: BASOPHILS % (AUTO) 1.9 % (0.0-2.0); EOSINOPHILS % (AUTO) 3.5 % (0.0-3.0); HEMATOCRIT 46.7 % (37.0-47.0); HEMOGLOBIN 15.7 G/DL (12.0-16.0); LYMPHOCYTES % (AUTO) 27.6 % (20.0-45.0); MEAN CORPUSCULAR VOLUME 92 FL (80-99); MONOCYTES % (AUTO) 5.4 % (1.0-10.0); NEUTROPHILS % (AUTO) 61.6 % (45.0-75.0); PLATELET COUNT 317 K/UL (150-450); RED BLOOD COUNT 5.09 M/UL (4.20-5.40); RED CELL DISTRIBUTION WIDTH 13.6 % (11.6-14.8); WHITE BLOOD COUNT 11.1 K/UL (4.8-10.8)
[2020-04-07 13:06] LABS: APPEARANCE,URINE CLEAR; BILIRUBIN, URINE NEGATIVE (NEGATIVE); GLUCOSE, URINE (UA) NEGATIVE (NEGATIVE); KETONES,URINE 4+ (NEGATIVE); LEUKOCYTE ESTERASE ,URINE NEGATIVE (NEGATIVE); NITRITE,URINE NEGATIVE (NEGATIVE); PH,URINE 6 (4.5-8.0); PROTEIN,URINE 3+ (NEGATIVE); UROBILINOGEN,URINE NORMAL MG/DL (0.0-1.0)
[2020-04-07 13:08] LABS: COLOR,URINE YELLOW
[2020-04-07 13:09] VITALS: BP 131/88
[2020-04-07 13:10] LABS: INR 1.1 (0.9-1.1)
--- NOTE | 2020-04-07 14:38 | NUR ---
ED Nurse Note: Report given to JONAH Valencia on 4E
[2020-04-07 14:59] LABS: ALANINE AMINOTRANSFERASE 10 U/L (12-78); ALBUMIN 2.7 G/DL (3.4-5.0); ALBUMIN/GLOBULIN RATIO 0.7 (1.0-2.7); ALKALINE PHOSPHATASE 55 U/L (46-116); ANION GAP 19 mmol/L (5-15); ASPARTATE AMINO TRANSFERASE 14 U/L (15-37); BILIRUBIN,TOTAL 0.5 MG/DL (0.2-1.0); BLOOD UREA NITROGEN 8 mg/dL (7-18); CALCIUM 8.8 MG/DL (8.5-10.1); CARBON DIOXIDE 17 MMOL/L (21-32); CHLORIDE 107 MMOL/L (98-107); CKMB 3.9 NG/ML (0.0-3.6); CREATININE 0.8 MG/DL (0.55-1.30); SODIUM 143 MMOL/L (136-145)
[2020-04-07 15:00] VITALS: BP 138/84
[2020-04-07 15:00] LABS: POTASSIUM 2.6 MMOL/L (3.5-5.1)
[2020-04-07] MEDS ORDERED: Tylenol #3 tab (300mg/30mg) ORAL PRN (16:00)
--- NOTE | 2020-04-07 16:03 | NUR ---
ED Nurse Note: pt received morning dose of synthroid @ long term. Med not administrated in ED
--- NOTE | 2020-04-07 16:14 | NUR ---
ED Nurse Note: Report given to JONAH Gagnon on 2E
--- NOTE | 2020-04-07 16:20 | NUR ---
ED Nurse Note: Pt transferred safely to 2E on the monitor. Pt has only bracelets on her person. List verified with RN @ bedside
[2020-04-07] MEDS ORDERED: Varibar Honey 250ml MC PRN ×2 (16:30)
[2020-04-07] MEDS ORDERED: Varibar Nectar 240ml MC PRN ×2 (16:30)
[2020-04-07] MEDS ORDERED: Varibar Pudding 230ml MC PRN ×2 (16:30)
[2020-04-07] MEDS ORDERED: Varibar Thin Liquid powder 148gm MC PRN ×2 (16:30)
--- NOTE | 2020-04-07 16:30 | NUR ---
NURSE NOTES: Received report from Hermila/JONAH and Patient transferred from ED to room 210-1 via gurney. Patient is awake, AAO x1. Placed supervisor firearms, changed to hospital gown, checked skin, Stage two on sacral, DTI on right heel and stage 1 on left heel. Picture taken, Charge nurse will upload pictures. Belonging check done with transferring nurse, No belonging other than 8 bracelets. IV site patent and intact. Bed in low position and locked, Call light within reach. Will contact MD for admission orders.
[2020-04-07 17:00] VITALS: BP 145/64
[2020-04-07] MEDS: Multivitamin w/Minerals tab ORAL SCH (17:45)
[2020-04-07] MEDS: Docusate 100mg cap ORAL SCH (17:45)
[2020-04-07] MEDS: Losartan 50mg tab ORAL SCH (17:45)
[2020-04-07] MEDS: Lyrica 50mg cap ORAL SCH (17:46)
--- NOTE | 2020-04-07 19:10 | NUR ---
NURSE HAND-OFF REPORT: Important Events on Shift:New Admit Patient Status: Stable Diet: Soft diet Pending Orders: NA Pending Results/Labs:Morning labs Pending MD notification:Na Latest Vital Signs: Temperature 98.1 , Pulse 78 , B/P 128 /79 , Respiratory Rate 20 , O2 SAT 97 , Room Air, O2 Flow Rate . Vital Sign Comment: Stable EKG Rhythm: Sinus Rhythm Rhythm change?: N MD Notified?: - MD Response: Latest Henderson Fall Score: 60 Fall Risk: High Risk Safety Measures: Call light , Bed Alarm Zone 1, Side Rails Side Rails x3, Bed position Low and Locked. Fall Precautions: Yellow Socks Yellow Gown Door Sign Patient Fall Education Report given to Mansoor/JONAH.
[2020-04-07 20:00] VITALS: BP 157/74
--- NOTE | 2020-04-07 20:00 | History and Physical Report ---
DATE OF ADMISSION: 04/07/2020 CHIEF COMPLAINT: Anorexia, failure to thrive. HISTORY OF PRESENT ILLNESS: Patient is a pleasant 70-year-old female. She has a history of hypertensive heart disease, hypothyroidism, obesity, unstable angina. She was previously admitted several months ago with COVID-19 pneumonia. She recovered and was discharged back to longterm facility. She was readmitted a month ago because of poor p.o. intake and urinary tract infection. PO intake improved slightly while in-house and was thought the patient's p.o. intake may improve once she returns back to her normal longterm facility. Initially it did, but over the last several weeks she again had poor p.o. intake. She has began to lose weight. In light of her failure to respond to outpatient therapy, she is now admitted for further evaluation and care. PAST MEDICAL HISTORY: As above. PAST SURGICAL HISTORY: None. CURRENT MEDICATIONS: Reconciled and reviewed. ALLERGIES: None. FAMILY HISTORY: None. SOCIAL HISTORY: There is no known history of tobacco, ethanol, or drugs. REVIEW OF SYSTEMS: GENERAL: No fevers or chills. Positive weight loss. HEENT: No headaches or visual changes. CARDIOPULMONARY: No chest pain or shortness of breath. GASTROINTESTINAL: No nausea or vomiting. Positive anorexia. GENITOURINARY: No urgency or frequency. MUSCULOSKELETAL: No joint pain or swelling. NEUROLOGIC: No evidence of seizures. PHYSICAL EXAMINATION: VITAL SIGNS: Temperature 98 degrees, blood pressure 130/76, pulse 80, respirations 20. GENERAL: Patient is well-developed, in no apparent distress. HEART: Regular rate and rhythm. LUNGS: Clear. ABDOMEN: Soft, nontender, nondistended. EXTREMITIES: Without clubbing, cyanosis, or edema. LABORATORY DATA: Hemoglobin is 2.7. White count was normal. ASSESSMENT: This is a 70-year-old female admitted with complaints of anorexia, weight loss, and failure to thrive. PLAN: Replace potassium. IV hydration. Swallow evaluation. Cardiology clearance for G-tube placement. GI consultation will be obtained. Tino Murillo M.D. DR: AMADOU JOB#: [id number] CC:
--- NOTE | 2020-04-07 20:01 | NUR ---
NURSE NOTES: Received patient from JONAH Gagnon. Patient awake, alert, and oriented x1. Able to verbally respond. On room air, saturating well. Breathing unlabored and even. Admitted for FTT. With notable alterations in skin integrity. Dressings dry and intact. Not in acute distress. No complaints of pain or discomfort at this time. Bed in lowest position, brakes engaged and bed alarm on. Bed rails raised x2. Call light placed within reach. Will continue to monitor.
[2020-04-08] VITALS: BP 155/77
--- NOTE | 2020-04-08 03:24 | NUR ---
NURSE NOTES: Admission wound photos uploaded to patient's chart.
--- NOTE | 2020-04-08 03:45 | Consultation ---
DATE OF CONSULTATION: 04/07/2020 CARDIOLOGY CONSULT CONSULTING PHYSICIAN: Chaim De Luna M.D. REQUESTING PHYSICIAN: Tino Murillo MD. REASON FOR CONSULTATION: Cardiovascular clearance for placement of gastrostomy tube. HISTORY OF PRESENT ILLNESS: This is a 70-year-old female, has had persisting anorexia and poor oral intake. This has been ongoing for some time and has not improved despite resolution of several illnesses over the past year. This most notably COVID-19 pneumonia several months back. The patient has been losing weight, failed to respond to supplements, and is now admitted for endoscopy and gastrostomy tube placement. PAST MEDICAL HISTORY: Includes hypertension with hypertensive heart disease, coronary artery disease, hypothyroidism, obesity, cerebrovascular disease with dementia. ALLERGIES: None. MEDICATIONS: Prior to admission, reviewed and reconciled. FAMILY HISTORY: Noncontributory. SOCIAL HISTORY: No record of smoking, alcohol, or substance abuse. REVIEW OF SYSTEMS: No fevers or chills. No cough. She has had weight loss. She has had COVID-19 this year. No change in vision or loss of hearing. She does have mild dementia. She has not had any new joint swelling. She does not have any frequency or dysuria. She has not had any nausea, vomiting, abdominal pain, diarrhea. There is no history of abnormal blood clotting. There is no history of asthma or respiratory distress. There is no history of myocardial infarction, although she has had episodes of unstable angina in the past treated medically. Her hypertension is controlled on oral therapy. There is no history of congestive heart failure. She is on thyroid replacement. There is no history of diabetes mellitus. PHYSICAL EXAMINATION: VITAL SIGNS: Blood pressure 130/76, pulse 80, respirations 20, afebrile. Mild temporal wasting. HEENT: Arcus senilis. Pale conjunctivae. Oropharynx clear. NECK: Supple. Jugular venous pressure normal. No bruits. LUNGS: Clear. CARDIAC: Regular rhythm and rate. Normal S1, S2 with no murmur, rub, or gallop. ABDOMEN: Soft, nontender. EXTREMITIES: No clubbing, cyanosis, or edema. NEUROLOGIC: Nonfocal. LABORATORY AND DIAGNOSTIC DATA: EKG reveals sinus rhythm at 88 beats per minute. No acute ST-T wave abnormalities. Chest x-ray with no acute process. Oxygen saturation room air 98%. White count 11.1, hemoglobin 15.7. ABG 7.33, 36, 79. Urinalysis 15 to 20 red cells, 0 to 2 white cells. Sodium 143, potassium 2.6, bicarb 17, BUN 8, creatinine 0.8. Pro-natriuretic peptide 376. Troponin 0. Lactic acid 0.6. IMPRESSIONS: 1. Failure to thrive. 2. Moderate protein-calorie malnutrition with albumin 2.7. 3. Hypertensive heart disease. 4. Chronic diastolic congestive heart failure. 5. Hypokalemia. 6. Metabolic acidosis. 7. Mild leukocytosis. PLAN: 1. Hydration. 2. Potassium repletion. 3. Monitor acid-base parameters. 4. Check magnesium. 5. DVT prophylaxis. 6. Titrate antihypertensive regimen and for adequate blood pressure control avoid orthostasis. 7. Defer endoscopy pending correction of metabolic derangements. 8. Recheck full thyroid panel. Chaim De Luna M.D. DR: EVELINA JOB#: [id number] CC:
[2020-04-08 04:00] VITALS: BP 137/67
--- NOTE | 2020-04-08 06:19 | Diagnostic Imaging Report ---
EXAM: XR Chest, 1 View CLINICAL HISTORY: AMS TECHNIQUE: Frontal view of the chest. COMPARISON: Chest x-ray dated 01/05/18 FINDINGS: Lungs: Subsegmental atelectasis in bilateral lung bases. Pleural space: Small left pleural effusion. Possible tiny right pleural effusion. Heart: Unremarkable. No cardiomegaly. Mediastinum: Unremarkable. Bones/joints: Multilevel degenerative disc space loss and endplate osteophytes throughout the visualized spine. Degenerative narrowing in bilateral shoulder joints. Vasculature: Atherosclerotic calcifications within the aortic arch. IMPRESSION: 1. Small left pleural effusion. Possible tiny right pleural effusion. 2. Subsegmental atelectasis in bilateral lung bases.
--- NOTE | 2020-04-08 07:20 | General Progress Note ---
Subjective ROS Limited/Unobtainable: No Constitutional: Reports: malaise, weakness HEENT: Reports: no symptoms Cardiovascular: Reports: no symptoms Respiratory: Reports: no symptoms Gastrointestinal/Abdominal: Reports: difficulty swallowing, poor appetite, poor fluid intake Genitourinary: Reports: no symptoms Neurologic/Psychiatric: Reports: pre-existing deficit Endocrine: Reports: no symptoms Hematologic/Lymphatic: Reports: no symptoms Allergies: Coded Allergies: No Known Allergies (Unverified , 01/05/18) All Systems: reviewed and negative except above Subjective no events. on ivf. refused to eat last night. cards appreciated. Objective Last 24 Hour Vital Signs Date Time Temp Pulse Resp B/P (MAP) Pulse Ox O2 Delivery O2 Flow Rate FiO2 04/08/20 04:00 98.1 81 18 137/67 (90) 98 04/08/20 04:00 84 04/08/20 00:00 97.9 81 16 155/77 (103) 100 04/08/20 00:00 73 04/07/20 21:00 Room Air 04/07/20 20:00 97.9 79 20 157/74 (101) 96 04/07/20 20:00 82 04/07/20 17:45 128/79 04/07/20 17:00 Room Air 04/07/20 17:00 98.1 78 20 145/64 (91) 97 04/07/20 16:45 72 04/07/20 16:20 98.1 89 20 128/79 97 Room Air 04/07/20 15:00 98.6 84 20 138/84 98 Room Air 04/07/20 13:09 98.3 82 20 131/88 99 Room Air 04/07/20 13:09 86 18 Room Air 04/07/20 11:58 98.4 80 20 134/90 (105) 98 Room Air Intake and Output 04/07/20 04/08/20 19:00 07:00 Intake Total 108.75 ml 760 ml Balance 108.75 ml 760 ml Intake IV Total 108.75 ml 760 ml # Voids 1 2 Laboratory Tests 04/07/20 12:05: White Blood Count 11.1H, Red Blood Count 5.09, Hemoglobin 15.7, Hematocrit 46.7, Mean Corpuscular Volume 92, Mean Corpuscular Hemoglobin 30.9, Mean Corpuscular Hemoglobin Concent 33.7, Red Cell Distribution Width 13.6, Platelet Count 317, Mean Platelet Volume 7.4, Neutrophils (%) (Auto) 61.6, Lymphocytes (%) (Auto) 27.6, Monocytes (%) (Auto) 5.4, Eosinophils (%) (Auto) 3.5H, Basophils (%) (Auto) 1.9, Prothrombin Time 12.2H, Prothromb Time International Ratio 1.1, Activated Partial Thromboplast Time 29 04/07/20 12:12: Arterial Blood pH 7.326L, Arterial Blood Partial Pressure CO2 35.8, Arterial Blood Partial Pressure O2 79.2, Arterial Blood HCO3 18.3L, Arterial Blood Oxygen Saturation 95.6, Arterial Blood Base Excess -6.9L, Anderson Test Positive 04/07/20 12:40: Urine Color Yellow, Urine Appearance Clear, Urine pH 6, Urine Specific [place] 1.015, Urine Protein 3+H, Urine Glucose (UA) Negative, Urine Ketones 4+H, Urine Blood 5+H, Urine Nitrite Negative, Urine Bilirubin Negative, Urine Urobilinogen Normal, Urine Leukocyte Esterase Negative, Urine RBC 15-20H, Urine WBC 0-2, Urine Squamous Epithelial Cells Few, Urine Bacteria Few 04/07/20 14:05: Sodium Level 143, Potassium Level 2.6*L, Chloride Level 107, Carbon Dioxide Level 17L, Anion Gap 19H, Blood Urea Nitrogen 8, Creatinine 0.8, Estimat Glomerular Filtration Rate > 60, Glucose Level 79, Lactic Acid Level 0.60, Calcium Level 8.8, Magnesium Level 1.8, Total Bilirubin 0.5, Aspartate Amino Transf (AST/SGOT) 14L, Alanine Aminotransferase (ALT/SGPT) 10L, Alkaline Phosphatase 55, Creatine Kinase MB 3.9H, Troponin I 0.000, Pro-B-Type Natriuretic Peptide 376H, Total Protein 6.6, Albumin 2.7L, Globulin 3.9, Albumin/Globulin Ratio 0.7L Height (Feet): 5 Height (Inches): 4.00 Weight (Pounds): 116 General Appearance: WD/WN, confused EENT: normal ENT inspection Neck: non-tender, normal alignment, supple Cardiovascular: normal peripheral pulses, normal rate, regular rhythm Respiratory/Chest: chest wall non-tender, lungs clear, normal breath sounds Abdomen: normal bowel sounds, non tender, soft, no organomegaly Edema: no edema noted Arm (L), no edema noted Arm (R) Neurologic: alert, disoriented Assessment/Plan Problem List: (1) Hypertension ICD Codes: I10 - Essential (primary) hypertension SNOMED: 87220201 (2) Stable angina ICD Codes: I20.8 - Other forms of angina pectoris SNOMED: 879127725 (3) Hypothyroid ICD Codes: E03.9 - Hypothyroidism, unspecified SNOMED: 78219113 (4) Failure to thrive SNOMED: 28911042 Status: stable, deteriorating Assessment/Plan: cont ivf encourage po swallow eval failed remeron and megace trials at [facility] psych eval message left with brother re: potential need for gt. Tino Murillo MD Apr 08, 2020 07:20
[2020-04-08 07:40] LABS: BASOPHILS % (AUTO) 1.8 % (0.0-2.0); HEMOGLOBIN 13.8 G/DL (12.0-16.0); LYMPHOCYTES % (AUTO) 23.6 % (20.0-45.0); MEAN CORPUSCULAR VOLUME 91 FL (80-99); MONOCYTES % (AUTO) 7.7 % (1.0-10.0); NEUTROPHILS % (AUTO) 62.9 % (45.0-75.0); PLATELET COUNT 282 K/UL (150-450); RED BLOOD COUNT 4.49 M/UL (4.20-5.40); RED CELL DISTRIBUTION WIDTH 13.6 % (11.6-14.8); WHITE BLOOD COUNT 10.2 K/UL (4.8-10.8)
--- NOTE | 2020-04-08 07:43 | NUR ---
NURSE NOTES: Pt received from Mansoor MCKENZIE. Pt in bed sleeping. Bed low and locked. Call light within reach. No distress noted. Whiteboard updated.
--- NOTE | 2020-04-08 07:47 | NUR ---
NURSE HAND-OFF REPORT: Important Events on Shift:[NA] Patient Status: [FC] Diet: [Soft, easy chew] Pending Orders: [] Pending Results/Labs:[] Pending MD notification:[DVT prophylaxis] Latest Vital Signs: Temperature 98.1 , Pulse 81 , B/P 137 /67 , Respiratory Rate 18 , O2 SAT 98 , Room Air, O2 Flow Rate . Vital Sign Comment: [] EKG Rhythm: Sinus Rhythm Rhythm change?: N MD Notified?: - MD Response: Latest Henderson Fall Score: 60 Fall Risk: High Risk Safety Measures: Call light Within Reach, Bed Alarm Zone 1, Side Rails Side Rails x2, Bed position Low and Locked. Fall Precautions: Yellow Socks Yellow Gown Door Sign Patient Fall Education Report given to [JONAH Omalley].
[2020-04-08 08:00] VITALS: BP 122/63
[2020-04-08 08:13] LABS: ALANINE AMINOTRANSFERASE 11 U/L (12-78); ALBUMIN 2.6 G/DL (3.4-5.0); ALBUMIN/GLOBULIN RATIO 0.7 (1.0-2.7); ALKALINE PHOSPHATASE 55 U/L (46-116); ANION GAP 12 mmol/L (5-15); ASPARTATE AMINO TRANSFERASE 16 U/L (15-37); BILIRUBIN,TOTAL 0.4 MG/DL (0.2-1.0); BLOOD UREA NITROGEN 6 mg/dL (7-18); CARBON DIOXIDE 22 MMOL/L (21-32); CHLORIDE 110 MMOL/L (98-107); CREATININE 0.9 MG/DL (0.55-1.30); POTASSIUM 3.2 MMOL/L (3.5-5.1); SODIUM 144 MMOL/L (136-145)
--- NOTE | 2020-04-08 09:01 | NUR ---
Speech Pathology Note (Bedside Dysphagia Evaluation) Indication of Evaluation: Dysphagia and recurrent episode of failure to thrive Imaging, labs and VS reviewed. Brief Note: Ms. Michel is a 70 year old female a resident of [facility] facility with history of major depression, bipolar disorder, CVA, HTN, hypothyroidism, TAYO, dysphagia, and failure to thrive. Pt readmitted to [facility] for possible PEG placement. Impression and Findings: Ms. Michel was repositioned in her bed for breakfast. Pt received scrambled egg, toast, oatmeal and juice. She became more alert, but orientation was 1. She did not follow commands. She indicated me that she wished to drink juice by nodding her head. She was given OJ with a small straw and she tolerated 3 sips without s.s of aspiration. Offering oatmeal/egg, she refused PO. I encouraged her a few times, but she continue to refuse. At this time, I completed my evaluation service. My impression is her swallow function is grossly intact but the reason for refusal to eat is unclear. Pt may need PEG placement incase she continues to refuse meds and meal. She should still continue PO diet with mechanical soft diet. Interpretation: 1. Dysphagia 2. Failure to thrive Plan: 1. Mechanical soft diet 2. Possible PEG Adriano Rodríguez
[2020-04-08] MEDS: Docusate 100mg cap ORAL SCH ×2 (10:00→18:52)
[2020-04-08] MEDS: Losartan 50mg tab ORAL SCH (10:01)
[2020-04-08] MEDS: Multivitamin w/Minerals tab ORAL SCH (10:01)
[2020-04-08] MEDS: Heparin 5000 units/ml inj SUBQ SCH ×2 (10:02→20:46)
[2020-04-08] MEDS: Lyrica 50mg cap ORAL SCH ×3 (10:09→18:53)
--- NOTE | 2020-04-08 11:19 | NUR ---
NURSE NOTES:WOUND ASSESSMENT PATIENT ALERT, NON-VERBAL BUT FOLLOWS SIMPLE COMMANDS AND ABLE TO ASSIST WITH REPOSITIONING IN BED. SACRUM- STAGE II PRESSURE WOUND MEASURING 1.0X0.5X0.2CM. PINK WOUND BED WITH NO NOTED DRAINAGE. LEFT BUTTOCK - WITH SMALL AREA OF EXCORIATION NOTED. RECOMMEND- CLEAN AREA WITH SALINE. PAT DRY. APPLY TRIAD TO BOTH WOUND AND EXCORIATION AND COVER WITH OPTIFOAM DRESSING. REPLACE DAILY AND PRN. ASSIST PATIENT TO REPOSITION SELF AT LEAST EVERY 2 HOURS OR TOLERATED. BILATERAL HEELS - NO SIGN OF PRESSURE INJURY RECOMMEND- ELEVATE HEELS WITH PILLOWS.
[2020-04-08 12:00] VITALS: BP 138/70
--- NOTE | 2020-04-08 12:04 | NUR ---
RD ASSESSMENT & RECOMMENDATIONS SEE CARE ACTIVITY FOR COMPLETE ASSESSMENT DAILY ESTIMATED NEEDS: Needs based on Wound, 52.7kg 30-35 kcals/kg 9788-7235 total kcals 1.25-1.5 g protein/kg 66-79 g total protein 25-30 mL/kg 7428-4697 total fluid mLs NUTRITION DIAGNOSIS: Increased kcal and pro needs r/t wound healing as evidenced by stage two on sacral, DTI on right heel and stage 1 on left heel, adm w/ FTT, poor po and decreased po intake. CURRENT DIET: Soft easy chew PO DIET RECOMMENDATIONS: Liberalized regular diet. Texture per cable armorer ENTERAL NUTRITION RECOMMENDATIONS: Jevity 1.2 @60ml/hr x24 hrs to provide 1440ml, 1728 kcal, 80g pro, 1162ml free H2O - if part of POC, rec non oral feeds to meet est needs w/ continued poor po not meeting est needs. - Obtain GI access, start Jevity 1.2 @low rate 20ml/hr for 6 hrs. Advance as tolerated 10ml/hr q4-6hrs to goal. Flush per MD. - HOB over 30 degrees. ADDITIONAL RECOMMENDATIONS: * Calibrated bedscale wt daily * Monitor PO intake closely- FTT dx, refusing meals * Consider Michael count x 48 hrs - FTT dx * Skin integrity: add LUIS BID * F/up w/ POC-> non oral feeds vs oral diet * Add ENSURE TID w/ meals
--- NOTE | 2020-04-08 14:39 | NUR ---
CASE MANAGEMENT:REVIEW 70 YR OLD FEMALE BIBA FROM [facility] CC: GENERALIZED WEAKNESS AND DIFFICULTY SWALLOWING SI: FAILURE TO THRIVE 98.5 80 20 134/90 98% ON RA WBC+11.1 K-2.6 IS: 1L NS BOLUS IV KCL X2 CXR BLOOD CX PLAN: SWALLOW AND PSYCH SHAR RIVERA LEFT MESSAGE FOR BROTHER RE POTENTIAL GT CALORIE COUNT DAILY WEIGHT
[2020-04-08 16:00] VITALS: BP 118/63
--- NOTE | 2020-04-08 18:59 | Cardiology Progress Note ---
Subjective DATE OF SERVICE: Apr 08, 2020 Refusing most oral intake. Labs reviewed Monitor: sinus with rare ectopics Objective Last 24 Hour Vital Signs Date Time Temp Pulse Resp B/P (MAP) Pulse Ox O2 Delivery O2 Flow Rate FiO2 04/08/20 16:00 98.1 80 19 118/63 (81) 95 04/08/20 16:00 80 04/08/20 12:00 84 04/08/20 12:00 96.6 78 20 138/70 (92) 97 04/08/20 10:01 122/63 04/08/20 09:00 Room Air 04/08/20 08:00 59 04/08/20 08:00 96.3 77 18 122/63 (82) 95 04/08/20 04:00 98.1 81 18 137/67 (90) 98 04/08/20 04:00 84 04/08/20 00:00 97.9 81 16 155/77 (103) 100 04/08/20 00:00 73 04/07/20 21:00 Room Air 04/07/20 20:00 97.9 79 20 157/74 (101) 96 04/07/20 20:00 82 ROS: unchanged from my evaluation of 04/07/12 RHYTHM: NSR LUNGS: lungs clear bilaterally CARDIAC: normal rate, regular rhythm, normal S1 and S2, gallop/S4 ABDOMEN: normal bowel sounds, non tender, soft, no organomegaly EXTREMITIES: normal range of motion, No edema Laboratory Tests Test 04/08/20 07:30 White Blood Count 10.2 K/UL (4.8-10.8) Red Blood Count 4.49 M/UL (4.20-5.40) Hemoglobin 13.8 G/DL (12.0-16.0) Hematocrit 41.0 % (37.0-47.0) Mean Corpuscular Volume 91 FL (80-99) Mean Corpuscular Hemoglobin 30.6 PG (27.0-31.0) Mean Corpuscular Hemoglobin Concent 33.6 G/DL (32.0-36.0) Red Cell Distribution Width 13.6 % (11.6-14.8) Platelet Count 282 K/UL (150-450) Mean Platelet Volume 6.8 FL (6.5-10.1) Neutrophils (%) (Auto) 62.9 % (45.0-75.0) Lymphocytes (%) (Auto) 23.6 % (20.0-45.0) Monocytes (%) (Auto) 7.7 % (1.0-10.0) Eosinophils (%) (Auto) 4.0 % (0.0-3.0) H Basophils (%) (Auto) 1.8 % (0.0-2.0) Sodium Level 144 MMOL/L (136-145) Potassium Level 3.2 MMOL/L (3.5-5.1) L Chloride Level 110 MMOL/L (98-107) H Carbon Dioxide Level 22 MMOL/L (21-32) Anion Gap 12 mmol/L (5-15) Blood Urea Nitrogen 6 mg/dL (7-18) L Creatinine 0.9 MG/DL (0.55-1.30) Estimat Glomerular Filtration Rate > 60 mL/min (>60) Glucose Level 127 MG/DL (74-106) H Calcium Level 9.0 MG/DL (8.5-10.1) Magnesium Level 1.8 MG/DL (1.8-2.4) Total Bilirubin 0.4 MG/DL (0.2-1.0) Aspartate Amino Transf (AST/SGOT) 16 U/L (15-37) Alanine Aminotransferase (ALT/SGPT) 11 U/L (12-78) L Alkaline Phosphatase 55 U/L (46-116) Total Protein 6.3 G/DL (6.4-8.2) L Albumin 2.6 G/DL (3.4-5.0) L Globulin 3.7 g/dL Albumin/Globulin Ratio 0.7 (1.0-2.7) L Thyroid Stimulating Hormone (TSH) 4.909 uiU/mL (0.358-3.740) Microbiology Date/Time Source Procedure Growth Status 04/07/20 14:30 Rectum Received 04/07/20 12:20 Nasopharynx SARS-CoV-2 RdRp Gene Assay - Final Complete Assessment/Plan Assessment/Plan Failure to thrive Decubiti Hypokalemia Dehydration/hypovolemia Mod-severe protein-calorie malnutrition CVA/dementia Hypertension/HHD Hypothyroidism Replace K+ IVF Swallow eval DVT prophyl Already failed appetite stims. DC telemetry once potassium corrected. Chaim De Luna MD Apr 08, 2020 18:59
--- NOTE | 2020-04-08 19:22 | NUR ---
NURSE NOTES: RECEIVED REPORT FROM JONAH JACOBS. PATIENT ASLEEP IN BED, APPEARS DROWSY AND LETHARGIC- OPENS EYES SPONTANEOUSLY. NO S/SX OF PAIN OR DISCOMFORT NOTED. BREATHING IS EVEN AND UNLABORED ON ROOM AIR, NO S/SX OF DISTRESS NOTED. IV SITE ON RAC PATENT, INTACT, ASYMPTOMATIC AND SALINE-LOCKED; LAC PATENT, INTACT, ASYMPTOMATIC WITH IVF RUNNING PRESCRIBED. FALL AND ASPIRATION PRECAUTIONS IN PLACE. BED LOCKED AND IN LOWEST POSITION, SIDERAILS UP X 3. CALL LIGHT WITHIN REACH, WILL CONTINUE TO MONITOR.
--- NOTE | 2020-04-08 19:28 | NUR ---
NURSE HAND-OFF REPORT: Important Events on Shift:[generally drowsy, took meds earlier in the morning but now now. K 3.2.] Patient Status: [in bed sleeping, A&O x 1] Diet: [Soft easy chew] Pending Orders: [] Pending Results/Labs:[] Pending MD notification:[none] Latest Vital Signs: Temperature 98.1 , Pulse 80 , B/P 118 /63 , Respiratory Rate 19 , O2 SAT 95 , Room Air, O2 Flow Rate . Vital Sign Comment: [stable] EKG Rhythm: Sinus Rhythm Rhythm change?: N MD Notified?: N - MD Response: Latest Henderson Fall Score: 60 Fall Risk: High Risk Safety Measures: Call light Within Reach, Bed Alarm Zone 1, Side Rails Side Rails x2, Bed position Low and Locked. Fall Precautions: Yellow Socks Yellow Gown Door Sign Patient Fall Education Report given to [Mohit RN].
[2020-04-08 20:00] VITALS: BP 124/60
--- NOTE | 2020-04-08 21:25 | General Progress Note ---
Subjective Allergies: Coded Allergies: No Known Allergies (Unverified , 01/05/18) Objective Last 24 Hour Vital Signs Date Time Temp Pulse Resp B/P (MAP) Pulse Ox O2 Delivery O2 Flow Rate FiO2 04/08/20 16:00 98.1 80 19 118/63 (81) 95 04/08/20 16:00 80 04/08/20 12:00 84 04/08/20 12:00 96.6 78 20 138/70 (92) 97 04/08/20 10:01 122/63 04/08/20 09:00 Room Air 04/08/20 08:00 59 04/08/20 08:00 96.3 77 18 122/63 (82) 95 04/08/20 04:00 98.1 81 18 137/67 (90) 98 04/08/20 04:00 84 04/08/20 00:00 97.9 81 16 155/77 (103) 100 04/08/20 00:00 73 Intake and Output 04/07/20 04/08/20 19:00 07:00 Intake Total 108.75 ml 760 ml Balance 108.75 ml 760 ml IV Total 108.75 ml 760 ml # Voids 1 2 Laboratory Tests 04/08/20 07:30: White Blood Count 10.2, Red Blood Count 4.49, Hemoglobin 13.8, Hematocrit 41.0, Mean Corpuscular Volume 91, Mean Corpuscular Hemoglobin 30.6, Mean Corpuscular Hemoglobin Concent 33.6, Red Cell Distribution Width 13.6, Platelet Count 282, Mean Platelet Volume 6.8, Neutrophils (%) (Auto) 62.9, Lymphocytes (%) (Auto) 23.6, Monocytes (%) (Auto) 7.7, Eosinophils (%) (Auto) 4.0H, Basophils (%) (Auto) 1.8, Sodium Level 144, Potassium Level 3.2L, Chloride Level 110H, Carbon Dioxide Level 22, Anion Gap 12, Blood Urea Nitrogen 6L, Creatinine 0.9, Estimat Glomerular Filtration Rate > 60, Glucose Level 127H, Calcium Level 9.0, Magnesium Level 1.8, Total Bilirubin 0.4, Aspartate Amino Transf (AST/SGOT) 16, Alanine Aminotransferase (ALT/SGPT) 11L, Alkaline Phosphatase 55, Total Protein 6.3L, Albumin 2.6L, Globulin 3.7, Albumin/Globulin Ratio 0.7L, Thyroid Stimulating Hormone (TSH) 4.909H Height (Feet): 5 Height (Inches): 4.00 Weight (Pounds): 116 Assessment/Plan Status: stable, deteriorating Assessment/Plan: GI CONSULT Assessment - encephalopathy / catatonia - ? neuro d/o, ? psych d/o - FTT, poor po - CVA - HTN Recommendation - psych and/or neuro eval - push po - if fails to improve, may need PEG Thank you MD Zenia Dye Payman MD Apr 08, 2020 21:25
--- NOTE | 2020-04-08 22:30 | Consultation ---
DATE OF CONSULTATION: 04/08/2020 GASTROENTEROLOGY CONSULTATION REPORT CONSULTING PHYSICIAN: Arron Knutson MD. CHIEF COMPLAINT: I was asked to see this patient by Dr. Tino Murillo for evaluation of anorexia and failure to thrive. HISTORY OF PRESENT ILLNESS: The patient is a very unfortunate 70-year-old woman with multiple medical problems, who was brought into the hospital due to failure to thrive. The patient was admitted 2 months ago with COVID-19 pneumonia. She recovered and was discharged to custodial, but now has been readmitted again a month ago and again now for poor oral intake. The patient herself does not provide much of information and most of information is available only from the chart. The patient is awake and follows some simple one-step commands, but otherwise did not participate much in the interview. PAST MEDICAL HISTORY: History of hypothyroidism, COVID-19 pneumonia, hypertension, obesity, hypertensive heart disease, history of unstable angina. FAMILY HISTORY: Unavailable. SOCIAL HISTORY: The patient is from a custodial. MEDICATIONS: Noted. ALLERGIES: None. REVIEW OF SYSTEMS: Otherwise unobtainable. PHYSICAL EXAMINATION: GENERAL: Patient is a debilitated white woman, who is somewhat catatonic and not very unresponsive, seen in her room. HEENT: Normocephalic and atraumatic. NECK: Supple. CHEST: Clear to auscultation. CARDIOVASCULAR: Revealed a regular rate. ABDOMEN: Soft and nontender. EXTREMITIES: Revealed no edema. LABORATORY DATA: Noted. ASSESSMENT: This patient presents with a mental status, she appears to be encephalopathic or catatonic. The patient should be seen by either or both Neurology and Psychiatry services to see if there is any reversible processes and patient's medication has been started, which can affect her eating. Otherwise, there is no obvious pathology to explain the patient's symptoms. Should her anorexia continue, then a gastrostomy can be used for long-term enteral access and nutrition. RECOMMENDATIONS: Per above discussion and per orders written in the chart. Thank you for asking me to participate in the care of this patient. Arron Knutson M.D. DR: LARA JOB#: [id number] CC: AYANNA
[2020-04-09] VITALS: BP 127/57
[2020-04-09 04:00] VITALS: BP 109/78
--- NOTE | 2020-04-09 05:30 | NUR ---
NURSE NOTES: PATIENT CLEANED, LINEN CHANGED, ORAL CARE PROVIDED- TOLERATED WELL.
--- NOTE | 2020-04-09 07:00 | NUR ---
NURSE HAND-OFF REPORT: Important Events on Shift: KCL 10MEQ IV X 2 Patient Status: STABLE Diet: SOFT, EASY CHEW Pending Orders: N/A Pending Results/Labs:04/09 AM LABS Pending MD notification:N/A Latest Vital Signs: Temperature 97.7 , Pulse 88 , B/P 109 /78 , Respiratory Rate 20 , O2 SAT 96 , Room Air, O2 Flow Rate . Vital Sign Comment: STABLE EKG Rhythm: Sinus Rhythm Rhythm change?: N MD Notified?: N - MD Response: Latest Henderson Fall Score: 70 Fall Risk: High Risk Safety Measures: Call light Within Reach, Bed Alarm Zone 1, Side Rails Side Rails x3, Bed position Low and Locked. Fall Precautions: Yellow Socks Yellow Gown Door Sign Patient Fall Education Report given to JONAH MULLEN.
[2020-04-09 07:29] LABS: INR 1.2 (0.9-1.1)
[2020-04-09 07:34] LABS: CREATININE 1.2 MG/DL (0.55-1.30); POTASSIUM 3.3 MMOL/L (3.5-5.1)
[2020-04-09 07:40] LABS: BASOPHILS % (AUTO) 1.7 % (0.0-2.0); EOSINOPHILS % (AUTO) 2.6 % (0.0-3.0); HEMATOCRIT 42.4 % (37.0-47.0); HEMOGLOBIN 13.9 G/DL (12.0-16.0); LYMPHOCYTES % (AUTO) 26.1 % (20.0-45.0); MEAN CORPUSCULAR VOLUME 92 FL (80-99); MONOCYTES % (AUTO) 9.8 % (1.0-10.0); NEUTROPHILS % (AUTO) 59.8 % (45.0-75.0); PLATELET COUNT 244 K/UL (150-450); RED BLOOD COUNT 4.59 M/UL (4.20-5.40); RED CELL DISTRIBUTION WIDTH 13.8 % (11.6-14.8); WHITE BLOOD COUNT 10.2 K/UL (4.8-10.8)
--- NOTE | 2020-04-09 07:50 | NUR ---
NURSE NOTES: Received patient from JONAH Esteban. Patient is A/O x1 and able to verbally respond. Pt asleep in bed and on room air, saturating @ 95%. Breathing unlabored and even. No SOB or acute distress. Pt is on calorie count with admitting diagnosis of FTT. With alterations in skin integrity and dressings are dry and intact. No complaints of pain at this time. Bed in lowest position, brakes engaged and bed alarm on. Bed rails raised x2. Call light placed within reach. Will continue plan of care.
[2020-04-09 08:00] VITALS: BP 124/76
[2020-04-09] MEDS: Multivitamin w/Minerals tab ORAL SCH (09:37)
[2020-04-09] MEDS: Lyrica 50mg cap ORAL SCH ×2 (09:37→17:15)
[2020-04-09] MEDS: Losartan 50mg tab ORAL SCH (09:38)
[2020-04-09] MEDS: Docusate 100mg cap ORAL SCH ×2 (09:39→17:15)
[2020-04-09] MEDS: Heparin 5000 units/ml inj SUBQ SCH ×2 (09:39→21:10)
--- NOTE | 2020-04-09 09:46 | General Progress Note ---
Subjective ROS Limited/Unobtainable: No Constitutional: Reports: malaise, weakness HEENT: Reports: no symptoms Cardiovascular: Reports: no symptoms Respiratory: Reports: no symptoms Gastrointestinal/Abdominal: Reports: poor appetite, poor fluid intake Genitourinary: Reports: no symptoms Neurologic/Psychiatric: Reports: depressed Endocrine: Reports: no symptoms Hematologic/Lymphatic: Reports: no symptoms Allergies: Coded Allergies: No Known Allergies (Unverified , 01/05/18) All Systems: reviewed and negative except above Subjective no events. poor po intake. compliant with meds but refusing food. no fever or chills. labs noted. low mg and k. Na trending up Objective Last 24 Hour Vital Signs Date Time Temp Pulse Resp B/P (MAP) Pulse Ox O2 Delivery O2 Flow Rate FiO2 04/09/20 09:38 124/76 04/09/20 08:31 Room Air Room Air 04/09/20 08:00 98.7 84 18 124/76 (92) 98 04/09/20 04:00 97.7 88 20 109/78 (88) 96 04/09/20 04:00 81 04/09/20 00:00 98.1 77 20 127/57 (80) 95 04/09/20 00:00 92 04/08/20 21:00 Room Air Room Air 04/08/20 20:00 99.3 89 20 124/60 (81) 96 04/08/20 20:00 80 04/08/20 16:00 98.1 80 19 118/63 (81) 95 04/08/20 16:00 80 04/08/20 12:00 84 04/08/20 12:00 96.6 78 20 138/70 (92) 97 04/08/20 10:01 122/63 Intake and Output 04/08/20 04/09/20 19:00 07:00 Intake Total 1095 ml 827.5 ml Output Total 1200 ml 360 ml Balance -105 ml 467.5 ml Intake Oral 120 ml 60 ml IV Total 975 ml 767.5 ml Output Urine Total 1200 ml 360 ml # Voids 3 Laboratory Tests 04/09/20 06:06: White Blood Count 10.2, Red Blood Count 4.59, Hemoglobin 13.9, Hematocrit 42.4, Mean Corpuscular Volume 92, Mean Corpuscular Hemoglobin 30.3, Mean Corpuscular Hemoglobin Concent 32.8, Red Cell Distribution Width 13.8, Platelet Count 244, Mean Platelet Volume 6.9, Neutrophils (%) (Auto) 59.8, Lymphocytes (%) (Auto) 26.1, Monocytes (%) (Auto) 9.8, Eosinophils (%) (Auto) 2.6, Basophils (%) (Auto) 1.7, Prothrombin Time 12.7H, Prothromb Time International Ratio 1.2H, Activated Partial Thromboplast Time 28, Sodium Level 146H, Potassium Level 3.3L, Chloride Level 115H, Carbon Dioxide Level 21, Anion Gap 10, Blood Urea Nitrogen 6L, Creatinine 1.2, Estimat Glomerular Filtration Rate 44.7, Glucose Level 102, Calcium Level 9.0, Magnesium Level 1.6L Height (Feet): 5 Height (Inches): 4.00 Weight (Pounds): 116 General Appearance: WD/WN, lethargic, confused EENT: normal ENT inspection Neck: non-tender, normal alignment, supple Cardiovascular: normal peripheral pulses, normal rate, regular rhythm Respiratory/Chest: chest wall non-tender, lungs clear, normal breath sounds Abdomen: normal bowel sounds, non tender, soft, no organomegaly Extremities: normal range of motion Edema: no edema noted Arm (L), no edema noted Arm (R) Neurologic: core piler II-XII grossly normal, disoriented Assessment/Plan Problem List: (1) Hypertension ICD Codes: I10 - Essential (primary) hypertension SNOMED: 07707039 (2) Stable angina ICD Codes: I20.8 - Other forms of angina pectoris SNOMED: 102588150 (3) Hypothyroid ICD Codes: E03.9 - Hypothyroidism, unspecified SNOMED: 10986648 (4) Failure to thrive SNOMED: 93433781 Status: stable, deteriorating Assessment/Plan: ivf adjusted replac lytes encourage po swallow eval failed remeron and megace trials at [facility] psych eval d/w sister. family considering GT await decision from family Tino Murillo MD Apr 09, 2020 09:46
[2020-04-09] MEDS: D5 1/2NS w/KCl 20mEq 1,000 ML IV SCH ×2 (10:14→23:50)
--- NOTE | 2020-04-09 10:45 | NUR ---
NURSES NOTES: Received a order from Dr. Murillo for K 40meq for pt low potassium of 3.3. Carried out.
[2020-04-09 12:00] VITALS: BP 139/58
[2020-04-09] MEDS ORDERED: LIDOCAINE VISC100 ML ORAL (12:26)
[2020-04-09] MEDS ORDERED: MEGESTROL400 MG/11 PO (12:26)
[2020-04-09] MEDS ORDERED: ASCORBIC ACID500 MG ORAL (12:26)
[2020-04-09] MEDS ORDERED: VITAMIN D250 MC1 PO (12:26)
[2020-04-09] MEDS ORDERED: MIRTAZAPINE45 MG ORAL (12:26)
[2020-04-09] MEDS ORDERED: ACETAMINOPHEN325 M1 ORAL (12:26)
--- NOTE | 2020-04-09 15:38 | NUR ---
NURSE NOTES: reported with MRSA nares positive, message sent to sr carrera.
[2020-04-09 16:00] VITALS: BP 136/59
--- NOTE | 2020-04-09 16:47 | General Progress Note ---
Subjective Allergies: Coded Allergies: No Known Allergies (Unverified , 01/05/18) Subjective Above noted discussed with brother over the phone he understands that patient eating very poorly he says he is agreeable to PEG placement, once medical team recommends and plans for it Objective Last 24 Hour Vital Signs Date Time Temp Pulse Resp B/P (MAP) Pulse Ox O2 Delivery O2 Flow Rate FiO2 04/09/20 16:00 84 04/09/20 16:00 96.7 80 18 136/59 (84) 98 04/09/20 12:00 98.4 75 18 139/58 (85) 98 04/09/20 12:00 77 04/09/20 09:38 124/76 04/09/20 08:31 Room Air Room Air 04/09/20 08:00 98.7 84 18 124/76 (92) 98 04/09/20 08:00 74 04/09/20 04:00 97.7 88 20 109/78 (88) 96 04/09/20 04:00 81 04/09/20 00:00 98.1 77 20 127/57 (80) 95 04/09/20 00:00 92 04/08/20 21:00 Room Air Room Air 04/08/20 20:00 99.3 89 20 124/60 (81) 96 04/08/20 20:00 80 Intake and Output 04/08/20 04/09/20 19:00 07:00 Intake Total 1095 ml 827.5 ml Output Total 1200 ml 360 ml Balance -105 ml 467.5 ml Intake Oral 120 ml 60 ml IV Total 975 ml 767.5 ml Output Urine Total 1200 ml 360 ml # Voids 3 Laboratory Tests 04/09/20 06:06: White Blood Count 10.2, Red Blood Count 4.59, Hemoglobin 13.9, Hematocrit 42.4, Mean Corpuscular Volume 92, Mean Corpuscular Hemoglobin 30.3, Mean Corpuscular Hemoglobin Concent 32.8, Red Cell Distribution Width 13.8, Platelet Count 244, Mean Platelet Volume 6.9, Neutrophils (%) (Auto) 59.8, Lymphocytes (%) (Auto) 26.1, Monocytes (%) (Auto) 9.8, Eosinophils (%) (Auto) 2.6, Basophils (%) (Auto) 1.7, Prothrombin Time 12.7H, Prothromb Time International Ratio 1.2H, Activated Partial Thromboplast Time 28, Sodium Level 146H, Potassium Level 3.3L, Chloride Level 115H, Carbon Dioxide Level 21, Anion Gap 10, Blood Urea Nitrogen 6L, Creat inine 1.2, Estimat Glomerular Filtration Rate 44.7, Glucose Level 102, Calcium Level 9.0, Magnesium Level 1.6L Height (Feet): 5 Height (Inches): 4.00 Weight (Pounds): 116 Objective Debilitated woman NCAT supple CTA RR abd soft no edema Assessment/Plan Status: stable, deteriorating Assessment/Plan: Assessment - encephalopathy / catatonia - ? neuro d/o, ? psych d/o - FTT, poor po - CVA - HTN Recommendation - psych and/or neuro eval - push po - if fails to improve, may need PEG - brother agreeable Arron Knutson MD Apr 09, 2020 16:47
--- NOTE | 2020-04-09 19:20 | NUR ---
NURSE NOTES: RECEIVED REPORT FROM JONAH MULLEN. PATIENT AWAKE IN BED, OX1, VERBALLY RESPONSIVE. NO COMPLAINTS OF PAIN OR DISCOMFORT AT THIS TIME. BREATHING IS EVEN AND UNLABORED ON ROOM AIR, NO S/SX OF DISTRESS- RR 18, SAO2 94%. IV SITES LAC AND RAC PATENT, INTACT, ASYMPTOMATIC WITH IVF RUNNING PRESCRIBED. FALL AND ASPIRATION PRECAUTIONS IN PLACE. CONTACT ISOLATION IMPLEMENTED. BED LOCKED AND IN LOWEST POSITION, SIDERAILS UP X 3. CALL LIGHT WITHIN REACH, WILL CONTINUE TO MONITOR PER POC.
--- NOTE | 2020-04-09 19:41 | NUR ---
NURSE HAND-OFF REPORT: Important Events on Shift: Resident refused all medications and food. 2g Mg and 40MeQ of K given. Patient Status: Stable Diet: Puree Pending Orders: Pending Results/Labs: Pending MD notification: Latest Vital Signs: Temperature 96.7 , Pulse 80 , B/P 136 /59 , Respiratory Rate 18 , O2 SAT 98 , Room Air, O2 Flow Rate . Vital Sign Comment: EKG Rhythm: Sinus Rhythm Rhythm change?: N MD Notified?: N - MD Response: Latest Henderson Fall Score: 70 Fall Risk: High Risk Safety Measures: Call light Within Reach, Bed Alarm Zone 1, Side Rails Side Rails x3, Bed position Low and Locked. Fall Precautions: Yellow Socks Yellow Gown Door Sign Patient Fall Education Report given to
[2020-04-09 20:00] VITALS: BP 106/50
--- NOTE | 2020-04-09 21:15 | NUR ---
NURSE NOTES: PATIENT AGREED TO HAVE A SNACK BEFORE BEDTIME; ABLE TO EAT TWO SPOONFULS OF APPLESAUCE AND 1 SALTINE CRACKER THAT WAS MASHED UP. REFUSED TO HAVE ANY WATER OR JUICE. ENCOURAGED PATIENT TO EAT MORE, BUT REFUSED DESPITE BEING EDUCATED ON IMPORTANCE OF PROPER NUTRITION AND PO INTAKE. WILL CONTINUE TO MONITOR FOR ANY CHANGES.
[2020-04-10] VITALS: BP 124/60
--- NOTE | 2020-04-10 00:05 | Psych Consult Progress Note ---
Psychiatry Progress Note Psychiatry Progress Note Medications Current Medications Medications (Trade) Dose Ordered Sig/Geoffrey Route PRN Reason Start Time Stop Time Status Last Admin Dose Admin Acetaminophen/ Codeine Phosphate (Tylenol #3) 1 tab Q8H PRN ORAL For Pain 04/07/20 16:00 04/14/20 15:59 Barium Sulfate (Varibar Honey) 250 ml NOW PRN RAD 04/07/20 16:30 04/10/20 16:23 Barium Sulfate (Varibar [place]) 240 ml NOW PRN RAD 04/07/20 16:30 04/10/20 16:23 Barium Sulfate (Varibar Pudding) 230 ml NOW PRN RAD 04/07/20 16:30 04/10/20 16:23 Barium Sulfate (Varibar Thin Liquid powder) 148 gm NOW PRN RAD 04/07/20 16:30 04/10/20 16:23 Dextrose/ Electrolytes 1,000 ml @ 75 mls/hr [id number] IV 04/09/20 11:00 05/09/20 10:59 04/09/20 23:50 Docusate Sodium (Colace) 100 mg TWICE A DAY ORAL 04/07/20 18:00 05/07/20 17:59 04/09/20 09:39 Heparin Sodium (Porcine) (Heparin 5000 units/ml) 5,000 units EVERY 12 HOURS SUBQ 04/08/20 09:00 05/23/20 08:59 04/09/20 21:10 Levothyroxine Sodium (Synthroid) 75 mcg DAILY@0630 ORAL 04/07/20 16:00 05/07/20 15:59 04/09/20 06:04 Losartan Potassium (Cozaar) 50 mg DAILY ORAL 04/07/20 16:00 05/07/20 15:59 04/09/20 09:38 Multivitamins Therapeutic (Therapeutic Multivitamin) 1 ea DAILY ORAL 04/07/20 16:00 05/07/20 15:59 04/09/20 09:37 Pantoprazole (Protonix) 40 mg DAILY ORAL 04/07/20 16:00 05/07/20 15:59 04/09/20 09:37 Pregabalin (Lyrica) 50 mg BID ORAL 04/07/20 18:00 05/07/20 17:59 04/09/20 09:37 Neurological/Psychiatric: Reports: depressed Allergies: Coded Allergies: No Known Allergies (Unverified , 01/05/18) Objective Data Height (Feet): 5 Height (Inches): 4.00 Weight (Pounds): 116 General Appearance: WD/WN, lethargic, confused Assessment/Plan Status: stable, deteriorating Cony Coto MD Apr 10, 2020 00:05
--- NOTE | 2020-04-10 00:31 | Cardiology Progress Note ---
Subjective DATE OF SERVICE: Apr 09, 2020 Refusing most oral intake. Labs reviewed - notable for abnormal Na+, Mg++, K+ Monitor: sinus with rare ectopics Objective Last 24 Hour Vital Signs Date Time Temp Pulse Resp B/P (MAP) Pulse Ox O2 Delivery O2 Flow Rate FiO2 04/10/20 00:00 97.9 82 18 124/60 (81) 95 04/10/20 00:00 67 04/09/20 21:00 Room Air Room Air 04/09/20 20:00 84 04/09/20 20:00 97.5 80 18 106/50 (68) 94 04/09/20 16:00 84 04/09/20 16:00 96.7 80 18 136/59 (84) 98 04/09/20 12:00 98.4 75 18 139/58 (85) 98 04/09/20 12:00 77 04/09/20 09:38 124/76 04/09/20 08:31 Room Air Room Air 04/09/20 08:00 98.7 84 18 124/76 (92) 98 04/09/20 08:00 74 04/09/20 04:00 97.7 88 20 109/78 (88) 96 04/09/20 04:00 81 ROS: unchanged from my evaluation of 04/07/12 RHYTHM: NSR LUNGS: lungs clear bilaterally CARDIAC: normal rate, regular rhythm, normal S1 and S2, gallop/S4 ABDOMEN: normal bowel sounds, non tender, soft, no organomegaly EXTREMITIES: normal range of motion, No edema Laboratory Tests Test 04/09/20 06:06 White Blood Count 10.2 K/UL (4.8-10.8) Red Blood Count 4.59 M/UL (4.20-5.40) Hemoglobin 13.9 G/DL (12.0-16.0) Hematocrit 42.4 % (37.0-47.0) Mean Corpuscular Volume 92 FL (80-99) Mean Corpuscular Hemoglobin 30.3 PG (27.0-31.0) Mean Corpuscular Hemoglobin Concent 32.8 G/DL (32.0-36.0) Red Cell Distribution Width 13.8 % (11.6-14.8) Platelet Count 244 K/UL (150-450) Mean Platelet Volume 6.9 FL (6.5-10.1) Neutrophils (%) (Auto) 59.8 % (45.0-75.0) Lymphocytes (%) (Auto) 26.1 % (20.0-45.0) Monocytes (%) (Auto) 9.8 % (1.0-10.0) Eosinophils (%) (Auto) 2.6 % (0.0-3.0) Basophils (%) (Auto) 1.7 % (0.0-2.0) Prothrombin Time 12.7 SEC (9.30-11.50) H Prothromb Time International Ratio 1.2 (0.9-1.1) H Activated Partial Thromboplast Time 28 SEC (23-33) Sodium Level 146 MMOL/L (136-145) H Potassium Level 3.3 MMOL/L (3.5-5.1) L Chloride Level 115 MMOL/L (98-107) H Carbon Dioxide Level 21 MMOL/L (21-32) Anion Gap 10 mmol/L (5-15) Blood Urea Nitrogen 6 mg/dL (7-18) L Creatinine 1.2 MG/DL (0.55-1.30) Estimat Glomerular Filtration Rate 44.7 mL/min (>60) Glucose Level 102 MG/DL (74-106) Calcium Level 9.0 MG/DL (8.5-10.1) Magnesium Level 1.6 MG/DL (1.8-2.4) L Microbiology Date/Time Source Procedure Growth Status 04/07/20 14:30 Rectum - Final NO CARBAPENEM-RESISTANT ENTEROBACTERI... Complete 04/07/20 14:30 Rectum VRE Culture - Final NO VANCOMYCIN RESISTANT ENTEROCOCCUS ... Complete 04/07/20 14:30 Nasal Nares MRSA Culture - Final Staphylococcus Aureus - Mrsa Complete 04/07/20 12:20 Nasopharynx SARS-CoV-2 RdRp Gene Assay - Final Complete Assessment/Plan Assessment/Plan Failure to thrive Decubiti Hypokalemia Hypomagnesemia Hypernatremia Dehydration/hypovolemia Mod-severe protein-calorie malnutrition CVA/dementia Hypertension/HHD Hypothyroidism Replace K+/Mg++/free water IVF Swallow eval DVT prophyl Already failed appetite stims. DC telemetry Chaim De Luna MD Apr 10, 2020 00:31
[2020-04-10 04:00] VITALS: BP 113/52
--- NOTE | 2020-04-10 04:45 | Consultation ---
DATE OF CONSULTATION: HISTORY OF PRESENT ILLNESS: This is a 70-year-old female with a history of dementia, hypothyroidism, anxiety, and angina, who has also a history of COVID-19 admitted to the hospital due to failure to thrive and poor p.o. intake. The patient is confused, not able to be engaged and it was difficult to being. PAST PSYCHIATRIC HISTORY: Depression and anxiety. PAST MEDICAL HISTORY: Hypothyroidism, heart disease, and hypertension. ALLERGIES: No known drug allergies. SUBSTANCE ABUSE HISTORY: No known history of illicit drug use or alcohol. MENTAL STATUS EXAMINATION: The patient is alert and oriented times self. Mood is dysphoric. Affect is blunted. Congruent with mood. Thought process is concrete. Thought content, no suicidal or homicidal ideation. Cognition is impaired. Insight and judgment is impaired. ASSESSMENT: Reading I Dementia. Depressive disorder Reading II Deferred. Reading III Failure to thrive. Reading IV Low. Reading V 20. PLAN: 1. The patient is started on Remeron 30 mg at bedtime. 2. Discussed with the nurse. Cony Coto M.D. DR: TREVOR JOB#: [id number] CC: AYANNA
--- NOTE | 2020-04-10 06:58 | General Progress Note ---
Subjective ROS Limited/Unobtainable: Yes Constitutional: Reports: malaise, weakness HEENT: Reports: no symptoms Cardiovascular: Reports: no symptoms Respiratory: Reports: cough Gastrointestinal/Abdominal: Reports: difficulty swallowing, poor appetite, poor fluid intake Genitourinary: Reports: no symptoms Neurologic/Psychiatric: Reports: no symptoms Endocrine: Reports: no symptoms Hematologic/Lymphatic: Reports: no symptoms Allergies: Coded Allergies: No Known Allergies (Unverified , 01/05/18) All Systems: reviewed and negative except above Subjective no real change. refusing most pos and meds. withdrawn. no fevers or chills. on ivf. Objective Last 24 Hour Vital Signs Date Time Temp Pulse Resp B/P (MAP) Pulse Ox O2 Delivery O2 Flow Rate FiO2 04/10/20 04:00 97.0 88 18 113/52 (72) 97 04/10/20 00:00 97.9 82 18 124/60 (81) 95 04/10/20 00:00 67 04/09/20 21:00 Room Air Room Air 04/09/20 20:00 84 04/09/20 20:00 97.5 80 18 106/50 (68) 94 04/09/20 16:00 84 04/09/20 16:00 96.7 80 18 136/59 (84) 98 04/09/20 12:00 98.4 75 18 139/58 (85) 98 04/09/20 12:00 77 04/09/20 09:38 124/76 04/09/20 08:31 Room Air Room Air 04/09/20 08:00 98.7 84 18 124/76 (92) 98 04/09/20 08:00 74 Intake and Output 04/09/20 04/10/20 19:00 07:00 Intake Total 462.5 ml Output Total 500 ml Balance -37.5 ml IV Total 462.5 ml Output Urine Total 500 ml # Voids 1 Height (Feet): 5 Height (Inches): 4.00 Weight (Pounds): 116 General Appearance: WD/WN, no apparent distress, alert EENT: normal ENT inspection Neck: non-tender, normal alignment Cardiovascular: normal peripheral pulses, normal rate Respiratory/Chest: chest wall non-tender, lungs clear, normal breath sounds Abdomen: normal bowel sounds, non tender, soft, no organomegaly Edema: no edema noted Arm (L), no edema noted Arm (R) Neurologic: alert, normal mood/affect, disoriented Assessment/Plan Problem List: (1) Hypertension ICD Codes: I10 - Essential (primary) hypertension SNOMED: 03616651 (2) Stable angina ICD Codes: I20.8 - Other forms of angina pectoris SNOMED: 917643503 (3) Hypothyroid ICD Codes: E03.9 - Hypothyroidism, unspecified SNOMED: 23703671 (4) Failure to thrive SNOMED: 13598201 Status: stable, deteriorating Assessment/Plan: cont ivf encourage pos med compliance stressed. follow up labs dvt/stress ulcer prophylaxis thyroid replacement rx skin care turn q2 boost/ensure GT per GI Tino Murillo MD Apr 10, 2020 06:58
--- NOTE | 2020-04-10 07:50 | NUR ---
INTER-FACILITY TRANSFER: Patient transferred to [facility] per DR. MARTINO. Report given to JONAH ESCOTO. Patient transferred with valuables and medications. Belongings verified upon transfer and given to JONAH ESCOTO.
[2020-04-10 08:00] VITALS: BP 137/78
--- NOTE | 2020-04-10 08:05 | NUR ---
NURSE NOTES: patient was transferred from Tele placed room 406-[address]Uomoto posadas. received report from JONAH Esteban. patient in bed. alert name. confused. limited verbal response. checked and counted belongings. IV on rac 22 saline lock. LAC 20 running D51/2ns 20meq@75/hr. ST passed but poor po intake. plan with peg placement. skin issues with sacral st 2, right heel DTi, left heel st 1. dry and warm to touch. contact isolation. bed in the lowest position and locked. call light within reach, alarm on. will continue to provide plan of care.
--- NOTE | 2020-04-10 08:31 | NUR ---
CASE MANAGEMENT:REVIEW 04/10/20 SI: FTT. DYSPHAGIC. ANOREXIC 97.0 88 18 113/52 97% ON RA IS; IVF@75/HR HEPARIN SQ Q12 : TELEMETRY STATUS---> TRANSFER TO MED/SURG PLAN: BROTHER AGREED TO PEG AWAIT PEG PLACEMENT
[2020-04-10] MEDS: Losartan 50mg tab ORAL SCH (09:00)
[2020-04-10] MEDS: Lyrica 50mg cap ORAL SCH ×2 (09:00→17:38)
[2020-04-10] MEDS: Docusate 100mg cap ORAL SCH ×2 (09:00→17:38)
[2020-04-10] MEDS: Multivitamin w/Minerals tab ORAL SCH (09:00)
[2020-04-10] MEDS: Heparin 5000 units/ml inj SUBQ SCH ×2 (09:38→20:26)
[2020-04-10 12:00] VITALS: BP 125/72
[2020-04-10] MEDS: D5 1/2NS w/KCl 20mEq 1,000 ML IV SCH (13:49)
[2020-04-10] MEDS ORDERED: Tubing IV Secondary IV ONE (14:10)
[2020-04-10] MEDS ORDERED: NS 275ml ONE (14:10)
--- NOTE | 2020-04-10 14:56 | NUR ---
NURSE NOTES: put order of EGD w/PEG placement. notified Dr. Knutson regarding consent. MD will talk family member first and will put order.
[2020-04-10 16:00] VITALS: BP 127/61
--- NOTE | 2020-04-10 19:02 | NUR ---
NURSE HAND-OFF: Important Events on Shift:Peg placement tomorrow. consent done. transferred from tele Patient Status: stable Diet: soft easy chew Pending Orders: n/a Pending Results/Labs:n/a Pending MD notification:n/a Latest Vital Signs: Temperature 97.8 , Pulse 86 , B/P 127 /61 , Respiratory Rate 19 , O2 SAT 96 , Room Air, O2 Flow Rate . Vital Sign Comment: stable Latest Henderson Fall Score: 70 Fall Risk: High Risk Safety Measures: Call light Within Reach, Bed Alarm Zone 1, Side Rails Side Rails x3, Bed position Low and Locked. Fall Precautions: Yellow Socks Yellow Gown Door Sign Patient Fall Education Report given to JONAH Lynn.
--- NOTE | 2020-04-10 19:27 | NUR ---
NURSE NOTES: received report form dilan beasley. patient is on bed, awake and verbally responsive. alert x1pt appears weak. per ramos" she refused meds and food". with iv lines on the right ac, saline lock and left ac running d5 1/2 ns + 20 meq @ 75 ml/hr. on room air. no sob. ramos states" she's schedule to have EGD with PEG placement tomorrow, signed consent". NPO post midnight. reiterated to call and ask for assistance. call light and light button within easy reach. bed locked and in lowest position. bed alarm on. will continue plan of care.
[2020-04-10 20:00] VITALS: BP 154/87
--- NOTE | 2020-04-10 22:51 | General Progress Note ---
Subjective Allergies: Coded Allergies: No Known Allergies (Unverified , 01/05/18) Subjective Above noted still with poor po discussed with brother over the phone again Now agreeable to PEG Objective Last 24 Hour Vital Signs Date Time Temp Pulse Resp B/P (MAP) Pulse Ox O2 Delivery O2 Flow Rate FiO2 04/10/20 21:00 Room Air Room Air 04/10/20 20:00 96.6 81 20 154/87 (109) 96 04/10/20 16:00 97.8 86 19 127/61 (83) 96 04/10/20 12:00 98.1 81 17 125/72 (89) 94 04/10/20 09:00 Room Air Room Air 04/10/20 09:00 137/78 04/10/20 08:00 98.7 89 18 137/78 (97) 95 04/10/20 04:00 97.0 88 18 113/52 (72) 97 04/10/20 00:00 97.9 82 18 124/60 (81) 95 04/10/20 00:00 67 Intake and Output 04/09/20 04/10/20 19:00 07:00 Intake Total 537.5 ml Output Total 500 ml Balance 37.5 ml IV Total 537.5 ml Output Urine Total 500 ml # Voids 1 Height (Feet): 5 Height (Inches): 4.00 Weight (Pounds): 116 Objective Debilitated woman NCAT supple CTA RR abd soft no edema Assessment/Plan Status: stable, deteriorating Assessment/Plan: Assessment - encephalopathy / catatonia - ? neuro d/o, ? psych d/o - FTT, poor po - CVA - HTN Recommendation - psych and/or neuro eval - will proceed with PEG placement in am Arron Knutson MD Apr 10, 2020 22:51
--- NOTE | 2020-04-10 23:09 | Psych Consult Progress Note ---
Psychiatry Progress Note Psychiatry Progress Note Medications Current Medications Medications (Trade) Dose Ordered Sig/Geoffrey Route PRN Reason Start Time Stop Time Status Last Admin Dose Admin Acetaminophen/ Codeine Phosphate (Tylenol #3) 1 tab Q8H PRN ORAL For Pain 04/07/20 16:00 04/14/20 15:59 Cefazolin Sodium 1 gm/Dextrose 55 ml @ 110 mls/hr ONCE IVPB 04/11/20 07:30 04/11/20 10:00 Dextrose/ Electrolytes 1,000 ml @ 75 mls/hr [id number] IV 04/09/20 11:00 05/09/20 10:59 04/10/20 13:49 Docusate Sodium (Colace) 100 mg TWICE A DAY ORAL 04/07/20 18:00 05/07/20 17:59 04/09/20 09:39 Heparin Sodium (Porcine) (Heparin 5000 units/ml) 5,000 units EVERY 12 HOURS SUBQ 04/08/20 09:00 05/23/20 08:59 04/10/20 09:38 Levothyroxine Sodium (Synthroid) 75 mcg DAILY@0630 ORAL 04/07/20 16:00 05/07/20 15:59 04/10/20 05:50 Losartan Potassium (Cozaar) 50 mg DAILY ORAL 04/07/20 16:00 05/07/20 15:59 04/09/20 09:38 Mirtazapine (Remeron) 30 mg BEDTIME ORAL 04/10/20 00:15 07/09/20 00:14 Multivitamins Therapeutic (Therapeutic Multivitamin) 1 ea DAILY ORAL 04/07/20 16:00 05/07/20 15:59 04/09/20 09:37 Pantoprazole (Protonix) 40 mg DAILY ORAL 04/07/20 16:00 05/07/20 15:59 04/09/20 09:37 Pregabalin (Lyrica) 50 mg BID ORAL 04/07/20 18:00 05/07/20 17:59 04/09/20 09:37 Neurological/Psychiatric: Reports: no symptoms Allergies: Coded Allergies: No Known Allergies (Unverified , 01/05/18) Objective Data Height (Feet): 5 Height (Inches): 4.00 Weight (Pounds): 116 General Appearance: WD/WN, no apparent distress, alert Assessment/Plan Status: stable, deteriorating Cony Coto MD Apr 10, 2020 23:09
[2020-04-11] VITALS (10 sets, daily range): BP systolic 110–147; BP diastolic 58–90
[2020-04-11] MEDS: D5 1/2NS w/KCl 20mEq 1,000 ML IV SCH (02:20)
--- NOTE | 2020-04-11 02:23 | Cardiology Progress Note ---
Subjective DATE OF SERVICE: Apr 10, 2020 Refusing most oral intake. Labs reviewed - notable for abnormal Na+, Mg++, K+ Objective Last 24 Hour Vital Signs Date Time Temp Pulse Resp B/P (MAP) Pulse Ox O2 Delivery O2 Flow Rate FiO2 04/11/20 00:00 97.9 86 20 143/76 (98) 96 04/10/20 21:00 Room Air Room Air 04/10/20 20:00 96.6 81 20 154/87 (109) 96 04/10/20 16:00 97.8 86 19 127/61 (83) 96 04/10/20 12:00 98.1 81 17 125/72 (89) 94 04/10/20 09:00 Room Air Room Air 04/10/20 09:00 137/78 04/10/20 08:00 98.7 89 18 137/78 (97) 95 04/10/20 04:00 97.0 88 18 113/52 (72) 97 ROS: unchanged from my evaluation of 04/07/12 RHYTHM: NSR LUNGS: lungs clear bilaterally CARDIAC: normal rate, regular rhythm, normal S1 and S2, gallop/S4 ABDOMEN: normal bowel sounds, non tender, soft, no organomegaly EXTREMITIES: normal range of motion, No edema Assessment/Plan Assessment/Plan Failure to thrive Decubiti Hypokalemia Hypomagnesemia Hypernatremia Dehydration/hypovolemia Mod-severe protein-calorie malnutrition CVA/dementia Hypertension/HHD Hypothyroidism Replace K+/Mg++/free water IVF DVT prophyl Already failed appetite stims. PEG planned Pre-op EKG/Echo planned Chaim De Luna MD Apr 11, 2020 02:23
--- NOTE | 2020-04-11 06:38 | NUR ---
NURSE HAND-OFF: Important Events on Shift: for EGD with PEG placement Patient Status: stable Diet: soft diet Pending Orders: egd with peg placement, 2decho and ekg Pending Results/Labs: Pending MD notification: Latest Vital Signs: Temperature 97.7 , Pulse 82 , B/P 147 /90 , Respiratory Rate 19 , O2 SAT 97 , Room Air, O2 Flow Rate . Vital Sign Comment: Latest Henderson Fall Score: 70 Fall Risk: High Risk Safety Measures: Call light Within Reach, Bed Alarm Zone 1, Side Rails Side Rails x3, Bed position Low and Locked. Fall Precautions: Yellow Socks Yellow Gown Door Sign Patient Fall Education
--- NOTE | 2020-04-11 07:15 | NUR ---
NURSE NOTES: Received report from JONAH Lynn. Patient received lying in hospital bed, AAO x 1-2, able to make some needs known, bedbound, requiring repositioning every 2 hours, with poor appetite planned for GT placement today. Patient is incontinent x2, LBM on 04/09/20, with purewick in place. Patient has multiple skin issues, pIV to R and L AC with IVF running of D5 1/2 NS with 20KCl at 75 ml/hr. Bed in lowest position, locked, with bed alarm on. Pending COVID-19 swab testing for pre-procedure clearance.
[2020-04-11 07:24] LABS: EOSINOPHILS % (AUTO) 3.6 % (0.0-3.0); HEMATOCRIT 43.2 % (37.0-47.0); HEMOGLOBIN 14.4 G/DL (12.0-16.0); LYMPHOCYTES % (AUTO) 42.9 % (20.0-45.0); MEAN CORPUSCULAR VOLUME 91 FL (80-99); MONOCYTES % (AUTO) 9.8 % (1.0-10.0); NEUTROPHILS % (AUTO) 41.8 % (45.0-75.0); PLATELET COUNT 286 K/UL (150-450); RED BLOOD COUNT 4.72 M/UL (4.20-5.40); RED CELL DISTRIBUTION WIDTH 13.8 % (11.6-14.8); WHITE BLOOD COUNT 7.7 K/UL (4.8-10.8)
--- NOTE | 2020-04-11 07:27 | NUR ---
HAND-OFF: Report given to dilan leon.
[2020-04-11] MEDS ORDERED: ceFAZolin sod 1 GM in D5W 55 ML IVPB SCH (07:30)
--- NOTE | 2020-04-11 07:58 | Anethesia Preoperative Eval ---
Anesthesia Pre-op PMH/ROS General Date of Evaluation: Apr 11, 2020 Anesthesiologist: [place] ASA Score: ASA 3 Mallampati Score Class I : Soft palate, uvula, fauces, pillars visible Class II: Soft palate, uvula, fauces visible Class III: Soft palate, base of uvula visible Class IV: Only hard plate visible Mallampati Classification: Class III Surgeon: Zenia Diagnosis: Dysphagia Surgical Procedure: EGD Anesthesia History: none Family History: no anesthesia problems Allergies: Coded Allergies: No Known Allergies (Unverified , 01/05/18) Medications: see eMAR Patient NPO?: Yes NPO Date: Apr 11, 2020 NPO Time: 00:00 Past Medical History Cardiovascular: Reports: HTN; Denies: CAD, [place], valve dz, arrhythmia, other Pulmonary: Denies: asthma, COPD, MANE, other Gastrointestinal/Genitourinary: Reports: GERD; Denies: CRI, ESRD, other Neurologic/Psychiatric: Reports: dementia, CVA; Denies: depression/anxiety, TIA, other Endocrine: Reports: DM, hypothyroidism; Denies: steroids, other HEENT: Denies: cataract (L), cataract (R), glaucoma, [place] (L), [place] (R), other Hematology/Immune: Denies: anemia, DVT, bleeding disorder, other Musculoskeletal/Integumentary: Denies: OA, RA, DJD, DDD, edema, other PSxH Narrative: Unable to assess Anesthesia Pre-op Phys. Exam Physician Exam Last Vital Signs Date Time Temp Pulse Resp B/P (MAP) Pulse Ox O2 Delivery O2 Flow Rate FiO2 04/11/20 04:00 97.7 82 19 147/90 (109) 97 04/10/20 21:00 Room Air Room Air Constitutional: NAD Cardiovascular: RRR Respiratory: CTA Airway Exam Mallampati Score: Class II MO: full ROM: full Anesthesia Pre-op A/P Labs Hematology Test 04/11/20 06:15 White Blood Count 7.7 K/UL (4.8-10.8) Red Blood Count 4.72 M/UL (4.20-5.40) Hemoglobin 14.4 G/DL (12.0-16.0) Hematocrit 43.2 % (37.0-47.0) Mean Corpuscular Volume 91 FL (80-99) Mean Corpuscular Hemoglobin 30.6 PG (27.0-31.0) Mean Corpuscular Hemoglobin Concent 33.4 G/DL (32.0-36.0) Red Cell Distribution Width 13.8 % (11.6-14.8) Platelet Count 286 K/UL (150-450) Mean Platelet Volume 6.1 FL (6.5-10.1) L Neutrophils (%) (Auto) 41.8 % (45.0-75.0) L Lymphocytes (%) (Auto) 42.9 % (20.0-45.0) Monocytes (%) (Auto) 9.8 % (1.0-10.0) Eosinophils (%) (Auto) 3.6 % (0.0-3.0) H Basophils (%) (Auto) 2.0 % (0.0-2.0) Studies Pre-op Studies: EKG - sr Risk Assessment & Plan Assessment: ASA III Plan: MAC Status Change Before Surgery: No Pre-Antibiotics Drug: Vanco Given Within 1 Hr of Incision: Yes Magdalena Hannah MD Apr 11, 2020 07:58
[2020-04-11] MEDS ORDERED: Vancomycin 500 MG in D5W 110 ML IVPB SCH (08:30)
[2020-04-11] MEDS: Heparin 5000 units/ml inj SUBQ SCH ×2 (09:00→20:39)
--- NOTE | 2020-04-11 09:02 | NUR ---
NURSE NOTES: Recived call from lab confirming results for COVID-19 swab done this AM-negative.
--- NOTE | 2020-04-11 09:29 | General Progress Note ---
Subjective Allergies: Coded Allergies: No Known Allergies (Unverified , 01/05/18) Subjective Above noted no events overnight anesthesia services requested another COVID test pre procedure Objective Last 24 Hour Vital Signs Date Time Temp Pulse Resp B/P (MAP) Pulse Ox O2 Delivery O2 Flow Rate FiO2 04/11/20 08:00 98.6 84 17 140/90 (107) 96 04/11/20 04:00 97.7 82 19 147/90 (109) 97 04/11/20 00:00 97.9 86 20 143/76 (98) 96 04/10/20 21:00 Room Air Room Air 04/10/20 20:00 96.6 81 20 154/87 (109) 96 04/10/20 16:00 97.8 86 19 127/61 (83) 96 04/10/20 12:00 98.1 81 17 125/72 (89) 94 Intake and Output 04/10/20 04/11/20 19:00 07:00 Intake Total 1225 ml 100 ml Output Total 800 ml Balance 1225 ml -700 ml Intake Oral 100 ml IV Total 825 ml Other 400 ml Output Urine Total 800 ml Laboratory Tests 04/11/20 06:15: White Blood Count 7.7, Red Blood Count 4.72, Hemoglobin 14.4, Hematocrit 43.2, Mean Corpuscular Volume 91, Mean Corpuscular Hemoglobin 30.6, Mean Corpuscular Hemoglobin Concent 33.4, Red Cell Distribution Width 13.8, Platelet Count 286, Mean Platelet Volume 6.1L, Neutrophils (%) (Auto) 41.8L, Lymphocytes (%) (Auto) 42.9, Monocytes (%) (Auto) 9.8, Eosinophils (%) (Auto) 3.6H, Basophils (%) (Auto) 2.0 Height (Feet): 5 Height (Inches): 3.00 Weight (Pounds): 54 Objective Debilitated woman NCAT supple CTA RR abd soft no edema Assessment/Plan Status: stable, deteriorating Assessment/Plan: Assessment - encephalopathy / catatonia - ? neuro d/o, ? psych d/o - FTT, poor po - CVA - HTN - low Mg and K Recommendation - psych and/or neuro eval - will proceed with PEG placement today - vano preop, given MRSA hx - replace Mg and K Arron Knutson MD Apr 11, 2020 09:29
[2020-04-11] MEDS ORDERED: Lidocaine 1% MPF 10mg/ml 5ml ONE (09:30)
[2020-04-11] MEDS ORDERED: NS 500ML IVPB ONE (09:40)
--- NOTE | 2020-04-11 09:50 | Pre-Procedure Note/Attestation ---
Pre-Procedure Note/Attestation Complete Prior to Procedure Planned Procedure: not applicable Procedure Narrative: esophagogastroduodenoscopy peg Indications for Procedure Pre-Operative Diagnosis: dysphagia Attestation I attest that I discussed the nature of the procedure; its benefits; risks and complications; and alternatives (and the risks and benefits of such alternatives), prior to the procedure, with the patient (or the patient's legal credit and collections representative). I attest that, if there was a reasonable possibility of needing a blood transfusion, the patient (or the patient's legal credit and collections representative) was given the [facility] standardized written summary, pursuant to the [place]el Elen Blood Safety Act ([place] Health and Safety Code # 1645, as amended). I attest that I re-evaluated the patient just prior to the surgery and that there has been no change in the patient's H&P, except as documented below: Arron Knutson MD Apr 11, 2020 09:50
--- NOTE | 2020-04-11 10:05 | Brief Operative Note ---
Immediate Post Operative Note Operative Note Pre-op Diagnosis: dysphagia Specimen: none Complications: none Fluids: per anesthesia Implant(s) used?: No Arron Knutson MD Apr 11, 2020 10:05
--- NOTE | 2020-04-11 10:05 | Endoscopy Procedure Note ---
Endoscopy Procedure Note General Indication for Procedure: dysphagia Anesthesia Anesthesiologist: Galeas Anesthesia: MAC Inserted Devices Implant(s) used?: No Quality Was there any complications?: No GI Core Measures 50 yrs or older w/o bx or poly: Not Applicable 10yrs. F/U recommended: Not Applicable Arron Knutson MD Apr 11, 2020 10:05
--- NOTE | 2020-04-11 10:15 | Immediate Post-Op Evaluation ---
Immediate Post-Op Evalulation Immediate Post-Op Evalulation Procedure: PEG Date of Evaluation: Apr 11, 2020 Time of Evaluation: 10:14 IV Fluids: 200 Blood Products: 0 Estimated Blood Loss: 0 Urinary Output: 0 Blood Pressure Systolic: 128 Blood Pressure Diastolic: 67 Pulse Rate: 86 Respiratory Rate: 16 O2 Sat by Pulse Oximetry: 100 Temperature (Fahrenheit): 98 Pain Score (1-10): 0 Nausea: No Vomiting: No Complications 0 Patient Status: awake, reacts, patent, none Hydration Status: adequate Drug: N/A Magdalena Hannah MD Apr 11, 2020 10:15
[2020-04-11 10:16] LABS: ANION GAP 8 mmol/L (5-15); BLOOD UREA NITROGEN 4 mg/dL (7-18); CALCIUM 8.5 MG/DL (8.5-10.1); CARBON DIOXIDE 24 MMOL/L (21-32); CHLORIDE 112 MMOL/L (98-107); CREATININE 0.9 MG/DL (0.55-1.30); POTASSIUM 3.9 MMOL/L (3.5-5.1); SODIUM 144 MMOL/L (136-145)
--- NOTE | 2020-04-11 10:16 | 48 Hour Post Anesthesia Eval ---
Post Anesthesia Evaluation Procedure: PEG Date of Evaluation: Apr 11, 2020 Airway: patent Nausea: No Vomiting: No Hydration Status: adequate Cardiopulmonary Status: at baseline Mental Status/LOC: patient returned to baseline Post-Anesthesia Complications: 0 Follow-up care needed: ready to discharge Magdalena Hannah MD Apr 11, 2020 10:16
[2020-04-11 10:24] LABS: ALANINE AMINOTRANSFERASE 14 U/L (12-78); ALBUMIN 2.3 G/DL (3.4-5.0); ALBUMIN/GLOBULIN RATIO 0.8 (1.0-2.7); ALKALINE PHOSPHATASE 56 U/L (46-116); ASPARTATE AMINO TRANSFERASE 32 U/L (15-37); BILIRUBIN,TOTAL 0.3 MG/DL (0.2-1.0)
[2020-04-11] MEDS: D5 1/2NS 1,000 ML IV SCH ×2 (12:27→23:43)
[2020-04-11] MEDS ORDERED: Tylenol #3 tab (300mg/30mg) GT PRN (13:00)
--- NOTE | 2020-04-11 13:10 | NUR ---
RD ASSESSMENT & RECOMMENDATIONS SEE CARE ACTIVITY FOR COMPLETE ASSESSMENT DAILY ESTIMATED NEEDS: Needs based on Wound, 52.7kg 25-30 kcals/kg 6852-4023 total kcals 1.25-1.5 g protein/kg 66-79 g total protein 25-30 mL/kg 9985-4428 total fluid mLs NUTRITION DIAGNOSIS: Increased kcal and pro needs r/t wound healing as evidenced by stage two on sacral, DTI on right heel and stage 1 on left heel, adm w/ FTT, consistently poor PO w/ mostly refusing meals, now s/p PEG placement (04/11). CURRENT DIET:NPO PO DIET RECOMMENDATIONS: IF ORAL GRAT INDICATED -> liberalized regular/ texture per GEL COATER ENTERAL NUTRITION RECOMMENDATIONS: Jevity 1.2 @60ml/hr x22 hrs (hold 1 hr before and after Synthroid) to provide 1320ml, 1584kcal, 73g prot, 1065ml free water - Pt is s/p PEG. - Once medically appropriate to feed, initiate Jevity 1.2 @ low rate 20ml/hr for 6 hrs. Advance 10ml q 4-6 hrs as tolerated to goal. - HOB over 30 degrees. - Hold 1 hr before and after Synthroid med ADDITIONAL RECOMMENDATIONS: * Calibrated bedscale wt daily * Monitor PO intake closely- FTT dx, refusing meals -> now s/p PEG placement (04/11) * Wound healing: add Vit C 500mg QD + Gee BID . .
[2020-04-11] MEDS: Lyrica 50mg cap ORAL SCH ×2 (13:17→17:10)
[2020-04-11] MEDS: Multivitamins W/Minerals 15 ML UDC GT SCH (13:45)
[2020-04-11] MEDS: Losartan 50mg tab GT SCH (13:46)
--- NOTE | 2020-04-11 15:50 | NUR ---
NURSE NOTES: Received patient lying in asleep but easily arousable no sign of distres, on going IVF patent and infusing wells/p PEG placement today dressing clean dry and intact with abdominal binder on,with order ok to use PEG for meds only no tube feeding today, with purewick in place. 4P's in progress on fall precaution Bed in lowest position, locked, with bed alarm on.calllight w/n easy reach ,kept clean dry and comfortable in bed dilan aceves
[2020-04-11] MEDS: Docusate 100mg/10ml Liq GT SCH (17:10)
--- NOTE | 2020-04-11 19:17 | NUR ---
NURSE HAND-OFF: Important Events on Shift:[PEG placement today ok to have meds but no feeding today] Patient Status: [stable] Diet: [npo] Pending Orders: [none] Pending Results/Labs:[none] Pending MD notification:[none] Latest Vital Signs: Temperature 98.0 , Pulse 74 , B/P 136 /74 , Respiratory Rate 19 , O2 SAT 95 , Room Air, O2 Flow Rate 3 . Vital Sign Comment: [stable ] Latest Henderson Fall Score: 70 Fall Risk: High Risk Safety Measures: Call light Within Reach, Bed Alarm Zone 1, Side Rails Side Rails x3, Bed position Low and Locked. Fall Precautions: Yellow Socks Yellow Gown Door Sign Patient Fall Education Report given to [LEANDRO Taylor].
--- NOTE | 2020-04-11 20:00 | NUR ---
NURSE NOTES: RECEIVED PATIENT LYING IN BED, APPEAR TO BE ASLEEP, AWAKENED TO NAME, NON VERBAL, ALL NEEDS ANTICIPATED AND MET BY NURSING STAFF. IV INTACT TO LEFT AC/GAUGE 20, TOLERATING IV FLUIDS, NO REDNESS/SWELLING NOTED. NO SIGNS AND SYMPTOMS OF ACUTE CARDIO RESPIRATORY DISTRESS/SHORTNESS OF BREATH, NO PERIPHERAL EDEMA NOTED. ABDOMEN SOFT/ROUND/S/P PEG PLACEMENT/ABDOMINAL BINDER, NPO EXCEPT MEDICATIONS, BLADDER INCONTINENCE, CARE PROVIDED, REPOSITIONED FOR COMFORT/PRESSURE RELIEF, TOLERATED WELL. SIDE RAILS UP X3/BED IN LOWEST POSITION FOR SAFETY, HOURLY ROUNDING FOR SAFETY/NEEDS, BED ALARM ACTIVATED.
--- NOTE | 2020-04-11 20:32 | General Progress Note ---
Subjective Time patient seen: 06:30 ROS Limited/Unobtainable: No Constitutional: Reports: malaise, weakness HEENT: Reports: no symptoms Cardiovascular: Reports: no symptoms Respiratory: Reports: no symptoms Gastrointestinal/Abdominal: Reports: difficulty swallowing, poor appetite, poor fluid intake Genitourinary: Reports: no symptoms Neurologic/Psychiatric: Reports: pre-existing deficit Endocrine: Reports: no symptoms Hematologic/Lymphatic: Reports: no symptoms Allergies: Coded Allergies: No Known Allergies (Unverified , 01/05/18) All Systems: reviewed and negative except above Subjective no real change. refusing most pos and meds. withdrawn. no fevers or chills. on ivf. d/w brother- wants to proceed with GT Objective Last 24 Hour Vital Signs Date Time Temp Pulse Resp B/P (MAP) Pulse Ox O2 Delivery O2 Flow Rate FiO2 04/11/20 16:11 98.0 74 19 136/74 (94) 95 04/11/20 15:53 Room Air Room Air 04/11/20 13:46 140/90 04/11/20 12:00 98.6 81 18 135/87 (103) 97 04/11/20 10:29 97.6 85 22 119/89 99 Nasal Cannula 3 04/11/20 10:20 81 21 130/61 99 Nasal Cannula 3 04/11/20 10:15 83 19 127/58 99 Nasal Cannula 3 04/11/20 10:15 86 16 100 04/11/20 10:09 98.0 82 17 128/67 99 Nasal Cannula 3 04/11/20 09:00 Room Air Room Air 04/11/20 08:00 98.6 84 17 140/90 (107) 96 04/11/20 04:00 97.7 82 19 147/90 (109) 97 04/11/20 00:00 97.9 86 20 143/76 (98) 96 04/10/20 21:00 Room Air Room Air Intake and Output 04/10/20 04/11/20 19:00 07:00 Intake Total 1225 ml 100 ml Output Total 800 ml Balance 1225 ml -700 ml Intake Oral 100 ml IV Total 825 ml Other 400 ml Output Urine Total 800 ml Laboratory Tests 04/11/20 06:15: White Blood Count 7.7, Red Blood Count 4.72, Hemoglobin 14.4, Hematocrit 43.2, Mean Corpuscular Volume 91, Mean Corpuscular Hemoglobin 30.6, Mean Corpuscular Hemoglobin Concent 33.4, Red Cell Distribution Width 13.8, Platelet Count 286, Mean Platelet Volume 6.1L, Neutrophils (%) (Auto) 41.8L, Lymphocytes (%) (Auto) 42.9, Monocytes (%) (Auto) 9.8, Eosinophils (%) (Auto) 3.6H, Basophils (%) (Auto) 2.0 04/11/20 09:18: Sodium Level 144, Potassium Level 3.9, Chloride Level 112H, Carbon Dioxide Level 24, Anion Gap 8, Blood Urea Nitrogen 4L, Creatinine 0.9, Estimat Glomerular Filtration Rate > 60, Glucose Level 102, Calcium Level 8.5, Magnesium Level 1.6L , Total Bilirubin 0.3, Aspartate Amino Transf (AST/SGOT) 32, Alanine Aminotransferase (ALT/SGPT) 14, Alkaline Phosphatase 56, Pro-B-Type Natriuretic Peptide 4219H, Total Protein 5.3L, Albumin 2.3L, Globulin 3.0, Albumin/Globulin Ratio 0.8L Height (Feet): 5 Height (Inches): 3.00 Weight (Pounds): 54 Objective General Appearance: WD/WN, no apparent distress, alert EENT: normal ENT inspection Neck: non-tender, normal alignment Cardiovascular: normal peripheral pulses, normal rate Respiratory/Chest: chest wall non-tender, lungs clear, normal breath sounds Abdomen: normal bowel sounds, non tender, soft, no organomegaly Edema: no edema noted Arm (L), no edema noted Arm (R) Neurologic: alert, normal mood/affect, disoriented Assessment/Plan Problem List: (1) Hypertension ICD Codes: I10 - Essential (primary) hypertension SNOMED: 62527211 (2) Stable angina ICD Codes: I20.8 - Other forms of angina pectoris SNOMED: 859392767 (3) Hypothyroid ICD Codes: E03.9 - Hypothyroidism, unspecified SNOMED: 77580262 (4) Failure to thrive SNOMED: 75346043 Status: stable, deteriorating Assessment/Plan: cont ivf encourage pos med compliance stressed. follow up labs dvt/stress ulcer prophylaxis thyroid replacement rx skin care turn q2 boost/ensure GT today d/w brother- wants to proceed Tino Murillo MD Apr 11, 2020 20:32
[2020-04-12] VITALS: BP 109/62
--- NOTE | 2020-04-12 01:40 | Cardiology Progress Note ---
Subjective DATE OF SERVICE: Apr 11, 2020 Now s/p PEG 2D Echo revealed Normal LV ejection fxn and no significant valvular disease Objective Last 24 Hour Vital Signs Date Time Temp Pulse Resp B/P (MAP) Pulse Ox O2 Delivery O2 Flow Rate FiO2 04/12/20 00:00 98.1 82 20 109/62 (78) 97 04/11/20 20:00 97.9 92 20 110/63 (79) 95 04/11/20 16:11 98.0 74 19 136/74 (94) 95 04/11/20 15:53 Room Air Room Air 04/11/20 13:46 140/90 04/11/20 12:00 98.6 81 18 135/87 (103) 97 04/11/20 10:29 97.6 85 22 119/89 99 Nasal Cannula 3 04/11/20 10:20 81 21 130/61 99 Nasal Cannula 3 04/11/20 10:15 83 19 127/58 99 Nasal Cannula 3 04/11/20 10:15 86 16 100 04/11/20 10:09 98.0 82 17 128/67 99 Nasal Cannula 3 04/11/20 09:00 Room Air Room Air 04/11/20 08:00 98.6 84 17 140/90 (107) 96 04/11/20 04:00 97.7 82 19 147/90 (109) 97 ROS: unchanged from my evaluation of 04/07/12 RHYTHM: NSR LUNGS: lungs clear bilaterally CARDIAC: normal rate, regular rhythm, normal S1 and S2, gallop/S4 ABDOMEN: normal bowel sounds, non tender, soft, no organomegaly, G-Tube intact EXTREMITIES: normal range of motion, No edema Laboratory Tests Test 04/11/20 06:15 04/11/20 09:18 White Blood Count 7.7 K/UL (4.8-10.8) Red Blood Count 4.72 M/UL (4.20-5.40) Hemoglobin 14.4 G/DL (12.0-16.0) Hematocrit 43.2 % (37.0-47.0) Mean Corpuscular Volume 91 FL (80-99) Mean Corpuscular Hemoglobin 30.6 PG (27.0-31.0) Mean Corpuscular Hemoglobin Concent 33.4 G/DL (32.0-36.0) Red Cell Distribution Width 13.8 % (11.6-14.8) Platelet Count 286 K/UL (150-450) Mean Platelet Volume 6.1 FL (6.5-10.1) L Neutrophils (%) (Auto) 41.8 % (45.0-75.0) L Lymphocytes (%) (Auto) 42.9 % (20.0-45.0) Monocytes (%) (Auto) 9.8 % (1.0-10.0) Eosinophils (%) (Auto) 3.6 % (0.0-3.0) H Basophils (%) (Auto) 2.0 % (0.0-2.0) Sodium Level 144 MMOL/L (136-145) Potassium Level 3.9 MMOL/L (3.5-5.1) Chloride Level 112 MMOL/L (98-107) H Carbon Dioxide Level 24 MMOL/L (21-32) Anion Gap 8 mmol/L (5-15) Blood Urea Nitrogen 4 mg/dL (7-18) L Creatinine 0.9 MG/DL (0.55-1.30) Estimat Glomerular Filtration Rate > 60 mL/min (>60) Glucose Level 102 MG/DL (74-106) Calcium Level 8.5 MG/DL (8.5-10.1) Magnesium Level 1.6 MG/DL (1.8-2.4) L Total Bilirubin 0.3 MG/DL (0.2-1.0) Aspartate Amino Transf (AST/SGOT) 32 U/L (15-37) Alanine Aminotransferase (ALT/SGPT) 14 U/L (12-78) Alkaline Phosphatase 56 U/L (46-116) Pro-B-Type Natriuretic Peptide 4219 pg/mL (0-125) H Total Protein 5.3 G/DL (6.4-8.2) L Albumin 2.3 G/DL (3.4-5.0) L Globulin 3.0 g/dL Albumin/Globulin Ratio 0.8 (1.0-2.7) L Microbiology Date/Time Source Procedure Growth Status 04/11/20 08:15 Nasopharynx SARS-CoV-2 RdRp Gene Assay - Final Complete Assessment/Plan Assessment/Plan Failure to thrive Dysphagia - s/p PEG Decubiti Hypokalemia Hypomagnesemia Hypernatremia Dehydration/hypovolemia Mod-severe protein-calorie malnutrition CVA/dementia Hypertension/HHD Hypothyroidism Replace K+/Mg++/free water as needed IVF until feedings maximized DVT prophyl Chaim De Luna MD Apr 12, 2020 01:40
[2020-04-12 04:00] VITALS: BP 123/68
[2020-04-12] MEDS: D5 1/2NS 1,000 ML IV SCH (05:00)
--- NOTE | 2020-04-12 05:15 | Procedure Note ---
DATE OF PROCEDURE: 04/11/2020 GASTROENTEROLOGY PROCEDURE REPORT PROCEDURE: Upper gastrointestinal endoscopy with gastrostomy tube placement. SURGEON: Arron Knutson M.D. ANESTHESIA: Please see the separate anesthesiologist notes for details. PRE-ENDOSCOPY DIAGNOSIS: Dysphagia. POSTENDOSCOPY DIAGNOSIS: Status post gastrostomy tube placement. PROCEDURE: Procedure, its risks, indications, alternatives, and possible complications were explained to the patient's durable poor or linotype machinist and informed consent was obtained. The patient was then sedated in the supine position and a diagnostic upper endoscope was introduced through oropharynx and advanced to the duodenum without difficulty. The endoscope was then gradually withdrawn and the mucosa examined carefully. Examination of the upper gastrointestinal mucosa did not reveal any pathology. The location for placement of the gastrostomy tube was identified by palpation and transillumination techniques. The outside skin was sterilely prepared, anesthetized, incised, and the trocar needle was used to place the gastrostomy tube using the standard pull technique. Position was verified endoscopically. The endoscope was removed. The patient was sent to recovery in good condition. COMPLICATIONS: None. RECOMMENDATIONS: 1. Observe overnight. 2. Begin tube feedings tomorrow. Arron Knutson M.D. DR: LYNNE JOB#: [id number] CC:
--- NOTE | 2020-04-12 05:47 | NUR ---
NURSE NOTES: PATIENT AWAKE, ALERT, VERBALLY RESPONSIVE, RESPONDING TO SIMPLE QUESTIONS REQUIRING YES/NO ANSWERS. NO SIGNS AND SYMPTOMS OF DISTRESS. CONTINUE WITH CURRENT PLAN OF CARE. NAD.
--- NOTE | 2020-04-12 07:00 | NUR ---
NURSE HAND-OFF: Important Events on Shift:[S/P PEG PLACEMENT 04/11/BINDER INTACT] Patient Status: [STABLE] Diet: [NPO, MEDS ONLY] Pending Orders: [N/A] Pending Results/Labs: Pending MD notification:[] Latest Vital Signs: Temperature 96.9 , Pulse 82 , B/P 123 /68 , Respiratory Rate 20 , O2 SAT 96 , Room Air, O2 Flow Rate 3 . Vital Sign Comment: [STABLE, AFEBRILE] Latest Henderson Fall Score: 70 Fall Risk: High Risk Safety Measures: Call light Within Reach, Bed Alarm Zone 1, Side Rails Side Rails x3, Bed position Low and Locked. Fall Precautions: Yellow Socks Yellow Gown Door Sign Patient Fall Education Report given to [Jacque GERMAIN, RN].
--- NOTE | 2020-04-12 07:32 | NUR ---
NURSE NOTES: Report received from LEANDRO Saldivar. Patient in bed, non verbal at this time but responsive to verbal and tactile stimuli, no SOB, bed in lowest position with breaks engaged and alarm on, on room air, no s/sx of pain or discomfort upon assessment, IV line patent, GT site clean and dry, pt still NPO per MD's order, will continue to monitor and proceed with plan of care, call light within reach
[2020-04-12 08:00] VITALS: BP 115/71
[2020-04-12] MEDS: Multivitamins W/Minerals 15 ML UDC GT SCH (08:41)
[2020-04-12] MEDS: Docusate 100mg/10ml Liq GT SCH ×2 (08:41→17:04)
[2020-04-12] MEDS: Losartan 50mg tab GT SCH (08:42)
[2020-04-12] MEDS: Lyrica 50mg cap ORAL SCH ×2 (08:42→17:05)
[2020-04-12] MEDS: Heparin 5000 units/ml inj SUBQ SCH ×2 (08:43→20:18)
--- NOTE | 2020-04-12 11:33 | NUR ---
NURSE NOTES: Dr Knutson ordered for patient to be started on Vital AF @ 50 cc/hr with 100 cc H2O flushes every 6 hours noted and carried out, will continue to monitor patient.
[2020-04-12 12:00] VITALS: BP 125/59
--- NOTE | 2020-04-12 12:30 | NUR ---
CASE MANAGEMENT:REVIEW 04/12/20 SI: POD #1...S/P PEG 98.1 74 16 125/59 97% ON RA IS: START GT FEEDS 50/HR SYNTHROID GT QD REMERON GT QHS MVI GT QD COZAAR GT QD IVF@75/HR HEPARIN SQ Q12 LYRICA PO BID : MED/SURG STATUS 4 EAST DCP: FROM [facility] PLAN: ANTICIPATING WEEKEND DISCHARGE BACK TO SNF IF TOLERATING FEEDS
--- NOTE | 2020-04-12 13:19 | NUR ---
DISCHARGE PLANNING DISCHARGE PLAN DISCUSSED WITH DR MARTINO HISTOLOGY TECHNOLOGIST LEFT [facility] FOR PATIENT'S BROTHER REQUESTING A RETURN PHONE CALL MESERET THOMAS T: [phone]
--- NOTE | 2020-04-12 13:28 | Cardiology Progress Note ---
Subjective DATE OF SERVICE: Apr 12, 2020 Now s/p PEG Feedings initiated today 2D Echo revealed Normal LV ejection fxn and no significant valvular disease Objective Last 24 Hour Vital Signs Date Time Temp Pulse Resp B/P (MAP) Pulse Ox O2 Delivery O2 Flow Rate FiO2 04/12/20 12:00 98.1 74 16 125/59 (81) 97 04/12/20 09:00 Room Air Room Air 04/12/20 08:42 115/71 04/12/20 08:00 98.2 74 16 115/71 (86) 97 04/12/20 04:00 96.9 82 20 123/68 (86) 96 04/12/20 00:00 98.1 82 20 109/62 (78) 97 04/11/20 21:00 Room Air Room Air 04/11/20 20:00 97.9 92 20 110/63 (79) 95 04/11/20 16:11 98.0 74 19 136/74 (94) 95 04/11/20 15:53 Room Air Room Air 04/11/20 13:46 140/90 ROS: unchanged from my evaluation of 04/07/12 RHYTHM: NSR LUNGS: lungs clear bilaterally CARDIAC: normal rate, regular rhythm, normal S1 and S2, gallop/S4 ABDOMEN: normal bowel sounds, non tender, soft, no organomegaly, G-Tube intact EXTREMITIES: normal range of motion, No edema Microbiology Date/Time Source Procedure Growth Status 04/11/20 08:15 Nasopharynx SARS-CoV-2 RdRp Gene Assay - Final Complete Assessment/Plan Assessment/Plan Failure to thrive Dysphagia - s/p PEG Decubiti Hypokalemia Hypomagnesemia Hypernatremia Dehydration/hypovolemia Mod-severe protein-calorie malnutrition CVA/dementia Hypertension/HHD Hypothyroidism Replace K+/Mg++/free water as needed IVF until feedings maximized DVT prophyl Repeat labs ordered DC planning reviewed with Chaim Gasca MD Apr 12, 2020 13:28
--- NOTE | 2020-04-12 13:43 | NUR ---
*-*DISCHARGE PLAN*-* PATIENT HAS BEEN ACCEPTED AND WILL BE DISCHARGE BACK TO: [facility] P: [phone] FOR NURSE REPORT ROOM# 127.[facility] SET FOR WILL CALL, S/W LUISA [id number] ~~~~PATIENT WILL BE DISCHARGED OVER THE WEEKEND~~~~~~
[2020-04-12 16:00] VITALS: BP 119/67
--- NOTE | 2020-04-12 16:33 | General Progress Note ---
Subjective Allergies: Coded Allergies: No Known Allergies (Unverified , 01/05/18) Subjective Above noted no events overnight orders for TF given Objective Last 24 Hour Vital Signs Date Time Temp Pulse Resp B/P (MAP) Pulse Ox O2 Delivery O2 Flow Rate FiO2 04/12/20 16:00 97.9 72 16 119/67 (84) 97 04/12/20 12:00 98.1 74 16 125/59 (81) 97 04/12/20 09:00 Room Air Room Air 04/12/20 08:42 115/71 04/12/20 08:00 98.2 74 16 115/71 (86) 97 04/12/20 04:00 96.9 82 20 123/68 (86) 96 04/12/20 00:00 98.1 82 20 109/62 (78) 97 04/11/20 21:00 Room Air Room Air 04/11/20 20:00 97.9 92 20 110/63 (79) 95 Intake and Output 04/11/20 04/12/20 19:00 07:00 Intake Total 425 ml 870 ml Output Total 0 ml 500 ml Balance 425 ml 370 ml Intake Oral 120 ml IV Total 425 ml 750 ml Output Urine Total 500 ml Estimated Blood Loss 0 ml # Voids 2 Height (Feet): 5 Height (Inches): 3.00 Weight (Pounds): 54 Objective Debilitated woman NCAT supple CTA RR abd soft, (+) GT no edema Assessment/Plan Status: stable, deteriorating Assessment/Plan: Assessment - encephalopathy / catatonia - ? neuro d/o, ? psych d/o - FTT, poor po --> s/p PEG - CVA - HTN - low Mg and K Recommendation - psych and/or neuro f/u - Begin TF - replace Mg and K PRN - OK for d/c from GI standpoint Arron Knutson MD Apr 12, 2020 16:33
--- NOTE | 2020-04-12 19:14 | NUR ---
NURSE HAND-OFF: Important Events on Shift:[New feeding diet Vital AF 1.2 at 50 cc goal, turning and repositioning, IV fluids] Patient Status: [stable] Diet: [Vital AF 1.2] Pending Orders: [] Pending Results/Labs:[] Pending MD notification:[] Latest Vital Signs: Temperature 97.9 , Pulse 72 , B/P 119 /67 , Respiratory Rate 16 , O2 SAT 97 , Room Air, O2 Flow Rate 3 . Vital Sign Comment: [] Latest Henderson Fall Score: 70 Fall Risk: High Risk Safety Measures: Call light Within Reach, Bed Alarm Zone 1, Side Rails Side Rails x3, Bed position Low and Locked. Fall Precautions: Yellow Socks Yellow Gown Door Sign Patient Fall Education Report given to [LEANDRO Saldivar].
--- NOTE | 2020-04-12 19:47 | NUR ---
NURSE NOTES: RECEIVED PATIENT LYING IN BED, AWAKE, ALERT/ORIENTED X1, VERBALLY RESPONSIVE, DENIES PAIN. NO SIGNS AND SYMPTOMS OF ACUTE CARDIO RESPIRATORY DISTRESS/SHORTNESS OF BREATH, TRACE EDEMA NOTED TO BILATERAL FEET, ELEVATED EACH EXTREMITY ON PILLOW WITH HEELS FLOATING. ABDOMEN SOFT/OBESE/AUDIBLE BOWEL SOUNDS, TOLERATING FEEDING, ASPIRATED APPROXIMATELY 15ML OF GASTRIC RESIDUAL, NO REPORT OF N/V. SIDE RAILS UP X3/BED IN LOWEST POSITION FOR SAFETY, FREQUENT ROUNDING FOR SAFETY/NEEDS. CONTINUE WITH CURRENT PLAN OF CARE. NAD.
[2020-04-12 20:00] VITALS: BP 119/76
--- NOTE | 2020-04-12 23:40 | Psych Consult Progress Note ---
Psychiatry Progress Note Psychiatry Progress Note Medications Current Medications Medications (Trade) Dose Ordered Sig/Geoffrey Route PRN Reason Start Time Stop Time Status Last Admin Dose Admin Acetaminophen/ Codeine Phosphate (Tylenol #3) 1 tab Q8H PRN GT For Pain 04/11/20 13:00 04/14/20 12:59 Dextrose/Sodium Chloride 1,000 ml @ 75 mls/hr [id number] IV 04/11/20 10:23 05/11/20 10:22 04/12/20 05:00 Docusate Sodium (Colace) 100 mg TWICE A DAY GT 04/11/20 18:00 05/11/20 17:59 04/12/20 17:04 Heparin Sodium (Porcine) (Heparin 5000 units/ml) 5,000 units EVERY 12 HOURS SUBQ 04/08/20 09:00 05/23/20 08:59 04/12/20 20:18 Lansoprazole (Prevacid) 30 mg DAILY GT 04/11/20 15:00 05/11/20 14:59 04/12/20 08:41 Levothyroxine Sodium (Synthroid) 75 mcg DAILY@0630 GT 04/12/20 06:30 05/07/20 15:59 04/12/20 05:53 Losartan Potassium (Cozaar) 50 mg DAILY GT 04/11/20 13:30 05/07/20 13:29 04/12/20 08:42 Mirtazapine (Remeron) 30 mg BEDTIME GT 04/11/20 21:00 07/09/20 20:59 04/12/20 20:13 Multivitamins (Multivitamins W/ Minerals 15ml Liquid) 15 ml DAILY GT 04/11/20 13:30 05/11/20 13:29 04/12/20 08:41 Pregabalin (Lyrica) 50 mg BID ORAL 04/07/20 18:00 05/07/20 17:59 04/12/20 17:05 Neurological/Psychiatric: Reports: pre-existing deficit Allergies: Coded Allergies: No Known Allergies (Unverified , 01/05/18) Objective Data Height (Feet): 5 Height (Inches): 3.00 Weight (Pounds): 54 General Appearance: WD/WN, no apparent distress, alert Assessment/Plan Status: stable, deteriorating Cony Coto MD Apr 12, 2020 23:40
[2020-04-13] VITALS (8 sets, daily range): BP systolic 97–155; BP diastolic 47–72
[2020-04-13] MEDS: D5 1/2NS 1,000 ML IV SCH ×2 (03:00→15:43)
--- NOTE | 2020-04-13 07:47 | NUR ---
NURSE HAND-OFF: Important Events on Shift:[UNEVENTFUL NIGHT, RESTED WELL, NAD.] Patient Status: [STABLE] Diet: VITAL AF 1.2 AT 50ML/HR, NO GASTRIC RESIDUAL NOTED Pending Orders: AM LABS Pending Results/Labs:[] Pending MD notification:[] Latest Vital Signs: Temperature 98.0 , Pulse 98 , B/P 146 /69 , Respiratory Rate 20 , O2 SAT 97 , Room Air, O2 Flow Rate 3 . Vital Sign Comment: [STABLE, AFEBRILE] Latest Henderson Fall Score: 70 Fall Risk: High Risk Safety Measures: Call light Within Reach, Bed Alarm Zone 1, Side Rails Side Rails x3, Bed position Low and Locked. Fall Precautions: Yellow Socks Yellow Gown Door Sign Patient Fall Education Report given to [JONAH SEE].
[2020-04-13 07:53] LABS: BASOPHILS % (AUTO) 2.8 % (0.0-2.0); HEMATOCRIT 38.2 % (37.0-47.0); LYMPHOCYTES % (AUTO) 17.9 % (20.0-45.0); MEAN CORPUSCULAR VOLUME 92 FL (80-99); MONOCYTES % (AUTO) 7.3 % (1.0-10.0); NEUTROPHILS % (AUTO) 71.1 % (45.0-75.0); PLATELET COUNT 137 K/UL (150-450); RED BLOOD COUNT 4.16 M/UL (4.20-5.40); RED CELL DISTRIBUTION WIDTH 13.8 % (11.6-14.8); WHITE BLOOD COUNT 15.8 K/UL (4.8-10.8)
--- NOTE | 2020-04-13 08:00 | NUR ---
NURSE NOTES: Patient alert to name,nonverbal at this time,respirations unlabored.IV fluids infusing as ordered.G-tube feedings as ordered,abdomen soft,will monitor residuals.HOB is elevated.Pure wick in place with clear yellow urine noted in the collection chamber.Bed alarm on,call light within reach.
--- NOTE | 2020-04-13 08:40 | General Progress Note ---
Subjective ROS Limited/Unobtainable: No Allergies: Coded Allergies: No Known Allergies (Unverified , 01/05/18) Objective Last 24 Hour Vital Signs Date Time Temp Pulse Resp B/P (MAP) Pulse Ox O2 Delivery O2 Flow Rate FiO2 04/13/20 04:00 98.0 98 20 146/69 (94) 97 04/13/20 00:00 97.7 83 18 155/67 (96) 95 04/12/20 21:00 Room Air Room Air 04/12/20 20:00 96.5 88 18 119/76 (90) 93 04/12/20 16:00 97.9 72 16 119/67 (84) 97 04/12/20 12:00 98.1 74 16 125/59 (81) 97 04/12/20 09:00 Room Air Room Air 04/12/20 08:42 115/71 Intake and Output 04/12/20 04/13/20 19:00 07:00 Intake Total 635 ml 1310 ml Output Total 700 ml 500 ml Balance -65 ml 810 ml Free Water 230 ml 260 ml IV Total 75 ml 600 ml Tube Feeding 330 ml 450 ml Output Urine Total 700 ml 500 ml Laboratory Tests 04/13/20 07:30: White Blood Count 15.8H, Red Blood Count 4.16L, Hemoglobin 13.0, Hematocrit 38.2, Mean Corpuscular Volume 92, Mean Corpuscular Hemoglobin 31.1H, Mean Corpuscular Hemoglobin Concent 33.9, Red Cell Distribution Width 13.8, Platelet Count 137L, Mean Platelet Volume 7.3, Neutrophils (%) (Auto) 71.1, Lymphocytes (%) (Auto) 17.9L, Monocytes (%) (Auto) 7.3, Eosinophils (%) (Auto) 1.0, Basophils (%) (Auto) 2.8H, Sodium Level [Pending], Potassium Level [Pending], Chloride Level [Pending], Carbon Dioxide Level [Pending], Blood Urea Nitrogen [Pending], Creatinine [Pending], Estimat Glomerular Filtration Rate [Pending], Glucose Level [Pending], Calcium Level [Pending], Magnesium Level [Pending], Total Bilirubin [Pending], Aspartate Amino Transf (AST/SGOT) [Pending], Alanine Aminotransferase (ALT/SGPT) [Pending], Alkaline Phosphatase [Pending], Pro-B-Type Natriuretic Peptide [Pending], Total Protein [Pending], Albumin [Pending], Globulin [Pending] Height (Feet): 5 Height (Inches): 3.00 Weight (Pounds): 54 General Appearance: no apparent distress EENT: normal ENT inspection Neck: supple Cardiovascular: normal rate Respiratory/Chest: decreased breath sounds Abdomen: normal bowel sounds, non tender, soft Extremities: non-tender Assessment/Plan Status: stable, deteriorating Assessment/Plan: Assessment - encephalopathy / catatonia - ? neuro d/o, ? psych d/o - FTT, poor po --> s/p PEG - CVA - HTN - low Mg and K Recommendation - psych and/or neuro f/u - TF - replace Mg and K PRN - OK for d/c from GI standpoint Octavio Arguelles MD Apr 13, 2020 08:40
[2020-04-13 08:52] LABS: ALANINE AMINOTRANSFERASE 35 U/L (12-78); ALBUMIN/GLOBULIN RATIO 0.6 (1.0-2.7); ALKALINE PHOSPHATASE 64 U/L (46-116); ANION GAP 10 mmol/L (5-15); ASPARTATE AMINO TRANSFERASE 31 U/L (15-37); BILIRUBIN,TOTAL 0.4 MG/DL (0.2-1.0); BLOOD UREA NITROGEN 9 mg/dL (7-18); CALCIUM 7.9 MG/DL (8.5-10.1); CARBON DIOXIDE 21 MMOL/L (21-32); CHLORIDE 109 MMOL/L (98-107); CREATININE 0.8 MG/DL (0.55-1.30); POTASSIUM 3.2 MMOL/L (3.5-5.1); SODIUM 140 MMOL/L (136-145)
[2020-04-13] MEDS: Heparin 5000 units/ml inj SUBQ SCH ×2 (09:00→20:06)
[2020-04-13] MEDS: Losartan 50mg tab GT SCH (09:00)
[2020-04-13] MEDS: Lyrica 50mg cap ORAL SCH ×2 (09:59→18:43)
[2020-04-13] MEDS: Multivitamins W/Minerals 15 ML UDC GT SCH (09:59)
[2020-04-13] MEDS: Docusate 100mg/10ml Liq GT SCH ×2 (09:59→18:41)
--- NOTE | 2020-04-13 10:16 | NUR ---
CHARGE NURSE NOTE: WBC 15.8, K3.2, Mag.1.5. was called, message left. Awaiting call back.
--- NOTE | 2020-04-13 10:38 | NUR ---
CHARGE NURSE NOTE: WBC 15.8. K3.2, Mag.1.5. and notified.
--- NOTE | 2020-04-13 11:40 | NUR ---
CHARGE NURSe NOTE: NO IV access, both arms swollen. Primary nurse Kiara and Charge nurse were trying to start a new IV using Vein finder- no success. Nursing air conditioning installer supervisor Cosme notified. and notified.
[2020-04-13] MEDS ORDERED: Tylenol #3 tab (300mg/30mg) GT PRN (13:00)
--- NOTE | 2020-04-13 14:10 | NUR ---
CHARGE NURSE NOTE: Unable to reach , no response, that pt needs a PICC line. YULIET [place]ulook asked for help for ICU nurse to insert IV line.
--- NOTE | 2020-04-13 16:12 | NUR ---
CHARGE NURSE NOTE: No response from . Escalated the issue to YULIET Aguiar.
--- NOTE | 2020-04-13 16:18 | NUR ---
NURSE NOTES: Patient abdomen soft,residual at this time 140cc, DR Arguelles notified wait for call back.
--- NOTE | 2020-04-13 16:19 | NUR ---
*-*DISCHARGE PLANNING*-* PATIENTS WBC's ARE HIGH 15.8, PATIENT IS NOT GOING TO BE DISCHARGED OF RIGHT NOW.
--- NOTE | 2020-04-13 16:57 | NUR ---
NURSE NOTES: DR Arguelles aware of patient residual,order to hold feedings for now.
--- NOTE | 2020-04-13 17:19 | NUR ---
NURSE NOTES: ICU nurse attempt x2 to restart IV but unsucessful ,will update Doctor.
--- NOTE | 2020-04-13 18:50 | NUR ---
NURSE NOTES: G-tube residual now at 20cc,will update DR Arguelles .
--- NOTE | 2020-04-13 19:00 | NUR ---
NURSE NOTES: DR Arguelles ordered to restart the G-tube feedings.DR cagle patient was unable to receive IV Magnesium due to n o IV access.
--- NOTE | 2020-04-13 19:22 | Cardiology Progress Note ---
Subjective DATE OF SERVICE: Apr 13, 2020 Now s/p PEG Feedings initiated yesterday 2D Echo revealed Normal LV ejection fxn and no significant valvular disease WBC up today. Objective Last 24 Hour Vital Signs Date Time Temp Pulse Resp B/P (MAP) Pulse Ox O2 Delivery O2 Flow Rate FiO2 04/13/20 16:00 99.1 92 18 126/69 (88) 94 04/13/20 12:00 97.2 81 17 109/60 (76) 96 04/13/20 09:49 91 114/72 (86) 04/13/20 09:00 Room Air Room Air 04/13/20 09:00 114/72 04/13/20 08:00 97.3 80 18 97/47 (64) 96 04/13/20 04:00 98.0 98 20 146/69 (94) 97 04/13/20 00:00 97.7 83 18 155/67 (96) 95 04/12/20 21:00 Room Air Room Air 04/12/20 20:00 96.5 88 18 119/76 (90) 93 ROS: unchanged from my evaluation of 04/07/12 RHYTHM: NSR LUNGS: lungs clear bilaterally CARDIAC: normal rate, regular rhythm, normal S1 and S2, gallop/S4 ABDOMEN: normal bowel sounds, non tender, soft, no organomegaly, G-Tube intact EXTREMITIES: normal range of motion, No edema Laboratory Tests Test 04/13/20 07:30 White Blood Count 15.8 K/UL (4.8-10.8) H Red Blood Count 4.16 M/UL (4.20-5.40) L Hemoglobin 13.0 G/DL (12.0-16.0) Hematocrit 38.2 % (37.0-47.0) Mean Corpuscular Volume 92 FL (80-99) Mean Corpuscular Hemoglobin 31.1 PG (27.0-31.0) H Mean Corpuscular Hemoglobin Concent 33.9 G/DL (32.0-36.0) Red Cell Distribution Width 13.8 % (11.6-14.8) Platelet Count 137 K/UL (150-450) L Mean Platelet Volume 7.3 FL (6.5-10.1) Neutrophils (%) (Auto) 71.1 % (45.0-75.0) Lymphocytes (%) (Auto) 17.9 % (20.0-45.0) L Monocytes (%) (Auto) 7.3 % (1.0-10.0) Eosinophils (%) (Auto) 1.0 % (0.0-3.0) Basophils (%) (Auto) 2.8 % (0.0-2.0) H Sodium Level 140 MMOL/L (136-145) Potassium Level 3.2 MMOL/L (3.5-5.1) L Chloride Level 109 MMOL/L (98-107) H Carbon Dioxide Level 21 MMOL/L (21-32) Anion Gap 10 mmol/L (5-15) Blood Urea Nitrogen 9 mg/dL (7-18) Creatinine 0.8 MG/DL (0.55-1.30) Estimat Glomerular Filtration Rate > 60 mL/min (>60) Glucose Level 138 MG/DL (74-106) H Calcium Level 7.9 MG/DL (8.5-10.1) L Magnesium Level 1.5 MG/DL (1.8-2.4) L Total Bilirubin 0.4 MG/DL (0.2-1.0) Aspartate Amino Transf (AST/SGOT) 31 U/L (15-37) Alanine Aminotransferase (ALT/SGPT) 35 U/L (12-78) Alkaline Phosphatase 64 U/L (46-116) Pro-B-Type Natriuretic Peptide 632 pg/mL (0-125) H Total Protein 5.5 G/DL (6.4-8.2) L Albumin 2.0 G/DL (3.4-5.0) L Globulin 3.5 g/dL Albumin/Globulin Ratio 0.6 (1.0-2.7) L Microbiology Date/Time Source Procedure Growth Status 04/11/20 08:15 Nasopharynx SARS-CoV-2 RdRp Gene Assay - Final Complete Assessment/Plan Assessment/Plan Failure to thrive Dysphagia - s/p PEG Decubiti Hypokalemia Hypomagnesemia Hypernatremia Dehydration/hypovolemia Mod-severe protein-calorie malnutrition CVA/dementia Hypertension/HHD Hypothyroidism Replace K+/Mg++ today Check urinalysis IVF discont'd DVT prophyl Repeat labs ordered DC planning reviewed with Chaim Gasca MD Apr 13, 2020 19:22
--- NOTE | 2020-04-13 19:23 | NUR ---
NURSE HAND-OFF: Hermelinda MCKENZIE Important Events on Shift:[check residuals]. Need restart ON IV attempts made aware unable to restart. Patient Status: [] Diet: [Vital AF 1.2 at 50cc/hr] Pending Orders: [] Pending Results/Labs:[] Pending MD notification:[] Latest Vital Signs: Temperature 99.1 , Pulse 92 , B/P 126 /69 , Respiratory Rate 18 , O2 SAT 94 , Room Air, O2 Flow Rate 3 . Vital Sign Comment: [] Latest Henderson Fall Score: 70 Fall Risk: High Risk Safety Measures: Call light Within Reach, Bed Alarm Zone 1, Side Rails Side Rails x3, Bed position Low and Locked. Fall Precautions: Yellow Socks Y Yellow Gown Y Door Sign y Patient Fall Education bed alarm Report given to [].
--- NOTE | 2020-04-13 19:30 | NUR ---
NURSE NOTES: Patient received in bed, asleep, arousable by touch. In no apparent distress, breathing is even and unlabored. On GTF with 30cc of residual, head of bed elevated, aspiration precautions, with abdominal binder. No IV access at this time, per AM shift, was aware.
--- NOTE | 2020-04-13 20:05 | NUR ---
NURSE NOTES: Dr. Arguelles was aware patient did not receive 3x bag of Mag sulfate. Recommended magnesium via gtube. Per MD, no need for magnesium alternative. Will monitor. Acknowledged order for urinalysis. Patient is incontinent. Patient was given perineal care and brand new external female catheter and new collection system for urine collection.
--- NOTE | 2020-04-13 22:16 | NUR ---
NURSE NOTES: Able to obtain IV access on right hand. MagSulfate re-ordered to be administered as Dr. Arguelles ordered earlier.
--- NOTE | 2020-04-14 00:15 | NUR ---
NURSE NOTES: Noted patient with 120cc of residual from GTF. TF held at this time. Will continue to monitor. HOB elevated.
--- NOTE | 2020-04-14 02:15 | NUR ---
NURSE NOTES: Urine collected and sent to lab.
[2020-04-14 03:49] VITALS: BP 113/51
--- NOTE | 2020-04-14 04:46 | NUR ---
NURSE NOTES: Incontinence care provided. Sacral dressing changed.
[2020-04-14 06:07] LABS: APPEARANCE,URINE CLEAR; BILIRUBIN, URINE NEGATIVE (NEGATIVE); COLOR,URINE PALE YELLOW; GLUCOSE, URINE (UA) NEGATIVE (NEGATIVE); KETONES,URINE NEGATIVE (NEGATIVE); LEUKOCYTE ESTERASE ,URINE 2+ (NEGATIVE); NITRITE,URINE NEGATIVE (NEGATIVE); PH,URINE 6 (4.5-8.0); PROTEIN,URINE NEGATIVE (NEGATIVE); UROBILINOGEN,URINE NORMAL MG/DL (0.0-1.0)
--- NOTE | 2020-04-14 07:14 | NUR ---
NURSE HAND-OFF: Important Events on Shift:had GTF residuals, IV access obtained, given 3x MagSulfate, urine sent for UA. dressing on sacrum changed Patient Status: [sleeping] Diet: [Vital AF 1.2 @50] Pending Orders: [] Pending Results/Labs:[label fuser tender will send another label fuser tender to try to draw blood] Pending MD notification:[] Latest Vital Signs: Temperature 97.3 , Pulse 86 , B/P 113 /51 , Respiratory Rate 18 , O2 SAT 95 , Room Air, O2 Flow Rate 3 . Vital Sign Comment: [] Latest Henderson Fall Score: 50 Fall Risk: High Risk Safety Measures: Call light Within Reach, Bed Alarm Zone 1, Side Rails Side Rails x3, Bed position Low and Locked. Fall Precautions: Yellow Socks Yellow Gown Door Sign Patient Fall Education Report given to [Britney MCKENZIE].
[2020-04-14 08:00] VITALS: BP 125/69
--- NOTE | 2020-04-14 08:50 | NUR ---
NURSE NOTES: Patient received in bed, asleep, in NAD, no S/S of pain or discomfort, breathing is even and unlabored. On GTF with 110cc of residual, feeding on hold, HOB elevated > 60 degrees, aspiration precautions, with abdominal binder. R hand IV access, no IVF. Patient is incontinent, on Pureweek external urinary catheter draining yellow crystalline urine. Bed locked at the lowest position possible, call light within easy reach, side rails upx3, on bed alarm. Will continue to monitor patient and follow up with the plan of care.
--- NOTE | 2020-04-14 08:54 | Cardiology Report ---
APPROVED REPORT EXAM: Two-dimensional and M-mode echocardiogram with Doppler and color Doppler. INDICATION Pre-Op M-Mode DIMENSIONS IVSd1.3 (0.7-1.1cm)Left Atrium (MM)3.3 (1.6-4.0cm) LVDd4.4 (3.5-5.6cm)Aortic Root2.5 (2.0-3.7cm) PWd0.7 (0.7-1.1cm)Aortic Cusp Exc.1.5 (1.5-2.0cm) IVSs1.7 cmEPSS0.4 (>1.0cm) LVDs3.1 (2.5-4.0cm) PWs0.9 cm <Conclusion> Technically difficult study due to poor acoustic windows. Study quality precludes accurate assessment of regional wall motion. Normal left ventricular chamber size, systolic function and wall motion. Left ventricular ejection fraction estimated to be 60 %. Mild left ventricular hypertrophy. Small circumferential pericardial effusion. Large pleural effusion. All other cardiac chamber sizes are within normal limits. Focal aortic valve sclerosis with adequate cusp excursion. Thickened mitral valve leaflets with normal excursion. Mitral annulus and aortic root calcification. Pulmonic valve not well visualized. Normal tricuspid valve structure. IVC is normal in size with physiological collapse. A color flow and spectral Doppler study was performed and revealed: No aortic regurgitation. No mitral regurgitation. Mitral diastolic velocities suggest mild left ventricular diastolic dysfunction (Grade I). Trace tricuspid regurgitation. Tricuspid systolic velocities suggests peak right ventricular systolic pressure of 12 mmHg.
[2020-04-14] MEDS: Heparin 5000 units/ml inj SUBQ SCH ×2 (09:00→21:10)
[2020-04-14] MEDS: Docusate 100mg/10ml Liq GT SCH ×2 (09:34→18:16)
[2020-04-14] MEDS: Multivitamins W/Minerals 15 ML UDC GT SCH (09:35)
[2020-04-14] MEDS: Losartan 50mg tab GT SCH (09:35)
[2020-04-14] MEDS: Lyrica 50mg cap ORAL SCH ×2 (09:35→18:16)
--- NOTE | 2020-04-14 10:01 | General Progress Note ---
Subjective ROS Limited/Unobtainable: No Allergies: Coded Allergies: No Known Allergies (Unverified , 01/05/18) Objective Last 24 Hour Vital Signs Date Time Temp Pulse Resp B/P (MAP) Pulse Ox O2 Delivery O2 Flow Rate FiO2 04/14/20 09:35 125/69 04/14/20 08:00 98.6 78 17 125/69 (87) 96 04/14/20 03:49 97.3 86 18 113/51 (71) 95 04/13/20 23:43 97.2 90 20 110/54 (72) 94 04/13/20 21:00 Room Air Room Air 04/13/20 20:00 97.7 85 20 100/59 (73) 94 04/13/20 16:00 99.1 92 18 126/69 (88) 94 04/13/20 12:00 97.2 81 17 109/60 (76) 96 Intake and Output 04/13/20 04/14/20 19:00 07:00 Intake Total 949 ml 800 ml Output Total 800 ml 200 ml Balance 149 ml 600 ml Free Water 100 ml 200 ml IV Total 449 ml 300 ml Tube Feeding 400 ml 300 ml Output Urine Total 800 ml 200 ml # Voids 2 # Bowel Movements 1 Laboratory Tests 04/14/20 02:00: Urine Color Pale yellow, Urine Appearance Clear, Urine pH 6, Urine Specific [place] 1.015, Urine Protein Negative, Urine Glucose (UA) Negative, Urine Ketones Negative, Urine Blood Negative, Urine Nitrite Negative, Urine Bilirubin Negative, Urine Urobilinogen Normal, Urine Leukocyte Esterase 2+H, Urine RBC 0- 2, Urine WBC 5-10H, Urine Squamous Epithelial Cells Occasional, Urine Bacteria ManyH Height (Feet): 5 Height (Inches): 3.00 Weight (Pounds): 54 General Appearance: no apparent distress EENT: normal ENT inspection Neck: supple Cardiovascular: normal rate, gallop/S3 Abdomen: hypoactive bowel sounds Extremities: non-tender Assessment/Plan Status: stable, deteriorating Assessment/Plan: Assessment - encephalopathy / catatonia - ? neuro d/o, ? psych d/o - FTT, poor po --> s/p PEG - CVA - HTN - low Mg and K Recommendation - psych and/or neuro f/u - TF -add reglan - replace Mg and K PRN - OK for d/c from GI standpoint Octavio Arguelles MD Apr 14, 2020 10:01
[2020-04-14 10:30] LABS: BASOPHILS % (AUTO) 1.1 % (0.0-2.0); EOSINOPHILS % (AUTO) 3.2 % (0.0-3.0); HEMATOCRIT 37.2 % (37.0-47.0); HEMOGLOBIN 12.4 G/DL (12.0-16.0); LYMPHOCYTES % (AUTO) 28.8 % (20.0-45.0); MEAN CORPUSCULAR VOLUME 92 FL (80-99); MONOCYTES % (AUTO) 8.3 % (1.0-10.0); NEUTROPHILS % (AUTO) 58.6 % (45.0-75.0); PLATELET COUNT 253 K/UL (150-450); RED BLOOD COUNT 4.06 M/UL (4.20-5.40); RED CELL DISTRIBUTION WIDTH 13.4 % (11.6-14.8); WHITE BLOOD COUNT 10.9 K/UL (4.8-10.8)
[2020-04-14] MEDS: Metoclopramide 10mg/10ml Liq NG SCH ×3 (10:35→21:09)
[2020-04-14 10:59] LABS: ANION GAP 6 mmol/L (5-15); BLOOD UREA NITROGEN 11 mg/dL (7-18); CARBON DIOXIDE 26 MMOL/L (21-32); CHLORIDE 111 MMOL/L (98-107); CREATININE 0.7 MG/DL (0.55-1.30); POTASSIUM 3.9 MMOL/L (3.5-5.1); SODIUM 143 MMOL/L (136-145)
--- NOTE | 2020-04-14 11:39 | NUR ---
RD ASSESSMENT & RECOMMENDATIONS SEE CARE ACTIVITY FOR COMPLETE ASSESSMENT DAILY ESTIMATED NEEDS: Needs based on Wound, 52.7kg 25-30 kcals/kg 0060-1649 total kcals 1.25-1.5 g protein/kg 66-79 g total protein 25-30 mL/kg 2409-4626 total fluid mLs NUTRITION DIAGNOSIS: Increased kcal and pro needs r/t wound healing as evidenced by stage two on sacral, DTI on right heel and stage 1 on left heel, adm w/ FTT, consistently poor PO w/ mostly refusing meals, now s/p PEG placement (04/11). CURRENT TF: Vital @50ml/hr ENTERAL NUTRITION RECOMMENDATIONS: Osmolite 1.2 @60ml/hr x22 hrs (hold 1 hr before and after Synthroid) to provide 1320ml, 1584kcal, 73g prot, 1082ml free water - Pt is s/p PEG. - Once medically appropriate to feed, initiate Osmolite 1.2 @ low rate 20ml/hr for 6 hrs. Advance 10ml q 4-6 hrs as tolerated to goal. - HOB over 30 degrees. - Hold 1 hr before and after Synthroid med ADDITIONAL RECOMMENDATIONS: * Calibrated bedscale wt daily * Monitor PO intake closely- FTT dx, refusing meals -> now s/p PEG placement (04/11) * Wound healing: add Vit C 500mg QD + Gee BID * Multiple episodes of residuals, consider above TF change for improved GI tolerance
[2020-04-14 12:00] VITALS: BP 116/60
[2020-04-14 16:00] VITALS: BP 116/61
--- NOTE | 2020-04-14 16:02 | Cardiology Progress Note ---
Subjective DATE OF SERVICE: Apr 14, 2020 s/p PEG with feedings being tolerated. 2D Echo revealed Normal LV ejection fxn and no significant valvular disease WBC up yesterday; improved today. Urine studies show possible UTI. Objective Last 24 Hour Vital Signs Date Time Temp Pulse Resp B/P (MAP) Pulse Ox O2 Delivery O2 Flow Rate FiO2 04/14/20 12:00 97.9 82 16 116/60 (78) 97 04/14/20 09:35 125/69 04/14/20 09:00 Room Air Room Air 04/14/20 08:00 98.6 78 17 125/69 (87) 96 04/14/20 03:49 97.3 86 18 113/51 (71) 95 04/13/20 23:43 97.2 90 20 110/54 (72) 94 04/13/20 21:00 Room Air Room Air 04/13/20 20:00 97.7 85 20 100/59 (73) 94 ROS: unchanged from my evaluation of 04/07/12 RHYTHM: NSR LUNGS: lungs clear bilaterally CARDIAC: normal rate, regular rhythm, normal S1 and S2, gallop/S4 ABDOMEN: normal bowel sounds, non tender, soft, no organomegaly, G-Tube intact EXTREMITIES: normal range of motion, No edema Laboratory Tests Test 04/14/20 02:00 04/14/20 10:11 Urine Color Pale yellow Urine Appearance Clear Urine pH 6 (4.5-8.0) Urine Specific [place] 1.015 (1.005-1.035) Urine Protein Negative (NEGATIVE) Urine Glucose (UA) Negative (NEGATIVE) Urine Ketones Negative (NEGATIVE) Urine Blood Negative (NEGATIVE) Urine Nitrite Negative (NEGATIVE) Urine Bilirubin Negative (NEGATIVE) Urine Urobilinogen Normal MG/DL (0.0-1.0) Urine Leukocyte Esterase 2+ (NEGATIVE) H Urine RBC 0-2 /HPF (0 - 2) Urine WBC 5-10 /HPF (0 - 2) H Urine Squamous Epithelial Cells Occasional /LPF Urine Bacteria Many /HPF (NONE) H White Blood Count 10.9 K/UL (4.8-10.8) H Red Blood Count 4.06 M/UL (4.20-5.40) L Hemoglobin 12.4 G/DL (12.0-16.0) Hematocrit 37.2 % (37.0-47.0) Mean Corpuscular Volume 92 FL (80-99) Mean Corpuscular Hemoglobin 30.5 PG (27.0-31.0) Mean Corpuscular Hemoglobin Concent 33.3 G/DL (32.0-36.0) Red Cell Distribution Width 13.4 % (11.6-14.8) Platelet Count 253 K/UL (150-450) # Mean Platelet Volume 7.0 FL (6.5-10.1) Neutrophils (%) (Auto) 58.6 % (45.0-75.0) Lymphocytes (%) (Auto) 28.8 % (20.0-45.0) Monocytes (%) (Auto) 8.3 % (1.0-10.0) Eosinophils (%) (Auto) 3.2 % (0.0-3.0) H Basophils (%) (Auto) 1.1 % (0.0-2.0) Sodium Level 143 MMOL/L (136-145) Potassium Level 3.9 MMOL/L (3.5-5.1) Chloride Level 111 MMOL/L (98-107) H Carbon Dioxide Level 26 MMOL/L (21-32) Anion Gap 6 mmol/L (5-15) Blood Urea Nitrogen 11 mg/dL (7-18) Creatinine 0.7 MG/DL (0.55-1.30) Estimat Glomerular Filtration Rate > 60 mL/min (>60) Glucose Level 110 MG/DL (74-106) H Calcium Level 8.0 MG/DL (8.5-10.1) L Magnesium Level 2.4 MG/DL (1.8-2.4) Assessment/Plan Assessment/Plan Failure to thrive Dysphagia - s/p PEG Decubiti Hypokalemia Hypomagnesemia Hypernatremia Dehydration/hypovolemia Mod-severe protein-calorie malnutrition CVA/dementia Hypertension/HHD Hypothyroidism Possible UTI Follow-up urine culture. Replace K+/Mg++ as needed IVF discont'd DVT prophyl Repeat labs reviewed DC planning reviewed with Chaim Gasca MD Apr 14, 2020 16:02
--- NOTE | 2020-04-14 18:15 | General Progress Note ---
Subjective ROS Limited/Unobtainable: No Constitutional: Reports: malaise, weakness HEENT: Reports: no symptoms Cardiovascular: Reports: no symptoms Respiratory: Reports: no symptoms Gastrointestinal/Abdominal: Reports: difficulty swallowing, poor appetite, poor fluid intake Genitourinary: Reports: no symptoms Neurologic/Psychiatric: Reports: anxiety, depressed, emotional problems Endocrine: Reports: no symptoms Hematologic/Lymphatic: Reports: anemia Allergies: Coded Allergies: No Known Allergies (Unverified , 01/05/18) All Systems: reviewed and negative except above Subjective no events. s/p gt. tolerating feeds. elevated wbc noted- trending down. denies chest pain or sob. no diarrhea Objective Last 24 Hour Vital Signs Date Time Temp Pulse Resp B/P (MAP) Pulse Ox O2 Delivery O2 Flow Rate FiO2 04/14/20 16:00 98.7 81 18 116/61 (79) 96 04/14/20 12:00 97.9 82 16 116/60 (78) 97 04/14/20 09:35 125/69 04/14/20 09:00 Room Air Room Air 04/14/20 08:00 98.6 78 17 125/69 (87) 96 04/14/20 03:49 97.3 86 18 113/51 (71) 95 04/13/20 23:43 97.2 90 20 110/54 (72) 94 04/13/20 21:00 Room Air Room Air 04/13/20 20:00 97.7 85 20 100/59 (73) 94 Intake and Output 04/13/20 04/14/20 19:00 07:00 Intake Total 949 ml 850 ml Output Total 800 ml 200 ml Balance 149 ml 650 ml Free Water 100 ml 200 ml IV Total 449 ml 300 ml Tube Feeding 400 ml 350 ml Output Urine Total 800 ml 200 ml # Voids 2 # Bowel Movements 1 Laboratory Tests 04/14/20 02:00: Urine Color Pale yellow, Urine Appearance Clear, Urine pH 6, Urine Specific [place] 1.015, Urine Protein Negative, Urine Glucose (UA) Negative, Urine Ketones Negative, Urine Blood Negative, Urine Nitrite Negative, Urine Bilirubin Negative, Urine Urobilinogen Normal, Urine Leukocyte Esterase 2+H, Urine RBC 0- 2, Urine WBC 5-10H, Urine Squamous Epithelial Cells Occasional, Urine Bacteria ManyH 04/14/20 10:11: White Blood Count 10.9H, Red Blood Count 4.06L, Hemoglobin 12.4, Hematocrit 37.2, Mean Corpuscular Volume 92, Mean Corpuscular Hemoglobin 30.5, Mean Corpuscular Hemoglobin Concent 33.3, Red Cell Distribution Width 13.4, Platelet Count 253#, Mean Platelet Volume 7.0, Neutrophils (%) (Auto) 58.6, Lymphocytes (%) (Auto) 28.8, Monocytes (%) (Auto) 8.3, Eosinophils (%) (Auto) 3.2H, Basophils (%) (Auto) 1.1, Sodium Level 143, Potassium Level 3.9, Chloride Level 111H, Carbon Dioxide Level 26, Anion Gap 6, Blood Urea Nitrogen 11, Creatinine 0.7, Estimat Glomerular Filtration Rate > 60, Glucose Level 110H, Calcium Level 8.0L, Magnesium Level 2.4 Height (Feet): 5 Height (Inches): 3.00 Weight (Pounds): 54 Objective General Appearance: WD/WN, no apparent distress, alert EENT: normal ENT inspection Neck: non-tender, normal alignment Cardiovascular: normal peripheral pulses, normal rate Respiratory/Chest: chest wall non-tender, lungs clear, normal breath sounds Abdomen: normal bowel sounds, non tender, soft, no organomegaly Edema: no edema noted Arm (L), no edema noted Arm (R) Neurologic: alert, normal mood/affect, disoriented Assessment/Plan Problem List: (1) Hypertension ICD Codes: I10 - Essential (primary) hypertension SNOMED: 33950211 (2) Stable angina ICD Codes: I20.8 - Other forms of angina pectoris SNOMED: 244559862 (3) Hypothyroid ICD Codes: E03.9 - Hypothyroidism, unspecified SNOMED: 43299799 (4) Failure to thrive SNOMED: 91205482 Status: stable, deteriorating Assessment/Plan: tube feeds oral grat med compliance stressed. monitor wbc follow up labs dvt/stress ulcer prophylaxis thyroid replacement rx skin care turn q2 message left with brother re: Tino Kaba MD Apr 14, 2020 18:15
--- NOTE | 2020-04-14 19:25 | NUR ---
NURSE HAND-OFF: Important Events on Shift:[high residual 110cc, held GTF x4hr, then no further GR] Patient Status: [stable] Diet: [GTF Vital AF 1.2@ 50cc/hr] Pending Orders: [] Pending Results/Labs:[] Pending MD notification:[] Latest Vital Signs: Temperature 98.7 , Pulse 81 , B/P 116 /61 , Respiratory Rate 18 , O2 SAT 96 , Room Air, O2 Flow Rate 3 . Vital Sign Comment: [] Latest Henderson Fall Score: 50 Fall Risk: High Risk Safety Measures: Call light Within Reach, Bed Alarm Zone 1, Side Rails Side Rails x3, Bed position Low and Locked. Fall Precautions: Yellow Socks Yellow Gown Door Sign Patient Fall Education Report given to [JONAH Armendariz].
--- NOTE | 2020-04-14 19:33 | NUR ---
NURSE NOTES: Patient received in bed, awake, nonverbal at this time. IV is intact and patent. GTF ongoing with 60cc residual, will monitor for residual throughout the shift. No signs of acute distress at this time.
--- NOTE | 2020-04-14 19:37 | Cardiology Report ---
APPROVED REPORT EKG Measurement Heart [id number] <Conclusion> Normal sinus rhythm Low voltage QRS Nonspecific T wave abnormality Abnormal ECG
[2020-04-14 20:00] VITALS: BP 100/41
--- NOTE | 2020-04-14 21:53 | NUR ---
NURSE NOTES: Upon giving scheduled medications, noted 100cc of residual. TF put on hold and will monitor.
[2020-04-15] VITALS: BP 127/73
[2020-04-15] MEDS: Metoclopramide 10mg/10ml Liq NG SCH (03:54)
[2020-04-15 04:00] VITALS: BP 133/73
--- NOTE | 2020-04-15 04:00 | NUR ---
NURSE NOTES: Noted 170cc of residual. TF placed on hold due to residual and prior to synthroid administration also. Scheduled reglan given. Will monitor.
--- NOTE | 2020-04-15 05:09 | NUR ---
NURSE NOTES: Incontinence care provided. Sacral dressing changed. tolerated well.
--- NOTE | 2020-04-15 06:38 | NUR ---
NURSE NOTES: Dr. Murillo made aware of patient still having residuals despite reglan. No orders at this time.
--- NOTE | 2020-04-15 06:42 | General Progress Note ---
Subjective ROS Limited/Unobtainable: Yes Constitutional: Reports: malaise, weakness HEENT: Reports: no symptoms Cardiovascular: Reports: no symptoms Respiratory: Reports: no symptoms Gastrointestinal/Abdominal: Reports: poor appetite, poor fluid intake Genitourinary: Reports: no symptoms Neurologic/Psychiatric: Reports: emotional problems, pre-existing deficit Endocrine: Reports: no symptoms Hematologic/Lymphatic: Reports: no symptoms Allergies: Coded Allergies: No Known Allergies (Unverified , 01/05/18) All Systems: reviewed and negative except above Subjective no events. not tolerating feeds. increased residuals >150cc x 2. currently on reglan. no abd pain. +bowel movements. Objective Last 24 Hour Vital Signs Date Time Temp Pulse Resp B/P (MAP) Pulse Ox O2 Delivery O2 Flow Rate FiO2 04/15/20 04:00 97.0 88 18 133/73 (93) 98 04/15/20 00:00 97.3 94 18 127/73 (91) 94 04/14/20 21:00 Room Air Room Air 04/14/20 20:00 96.3 85 20 100/41 (60) 94 04/14/20 16:00 98.7 81 18 116/61 (79) 96 04/14/20 12:00 97.9 82 16 116/60 (78) 97 04/14/20 09:35 125/69 04/14/20 09:00 Room Air Room Air 04/14/20 08:00 98.6 78 17 125/69 (87) 96 Intake and Output 04/14/20 04/15/20 19:00 07:00 Intake Total 800 ml 290 ml Balance 800 ml 290 ml Free Water 200 ml 40 ml IV Total 200 ml Tube Feeding 400 ml 250 ml # Bowel Movements 1 Laboratory Tests 04/14/20 10:11: White Blood Count 10.9H, Red Blood Count 4.06L, Hemoglobin 12.4, Hematocrit 37.2, Mean Corpuscular Volume 92, Mean Corpuscular Hemoglobin 30.5, Mean Corpuscular Hemoglobin Concent 33.3, Red Cell Distribution Width 13.4, Platelet Count 253#, Mean Platelet Volume 7.0, Neutrophils (%) (Auto) 58.6, Lymphocytes (%) (Auto) 28.8, Monocytes (%) (Auto) 8.3, Eosinophils (%) (Auto) 3.2H, Basophils (%) (Auto) 1.1, Sodium Level 143, Potassium Level 3.9, Chloride Level 111H, Carbon Dioxide Level 26, Anion Gap 6, Blood Urea Nitrogen 11, Creatinine 0.7, Estimat Glomerular Filtration Rate > 60, Glucose Level 110H, Calcium Level 8.0L, Magnesium Level 2.4 Height (Feet): 5 Height (Inches): 3.00 Weight (Pounds): 54 Objective General Appearance: WD/WN, no apparent distress, alert EENT: normal ENT inspection Neck: non-tender, normal alignment Cardiovascular: normal peripheral pulses, normal rate Respiratory/Chest: chest wall non-tender, lungs clear, normal breath sounds Abdomen: normal bowel sounds, non tender, soft, no organomegaly Edema: no edema noted Arm (L), no edema noted Arm (R) Neurologic: alert, normal mood/affect, disoriented Assessment/Plan Problem List: (1) Hypertension ICD Codes: I10 - Essential (primary) hypertension SNOMED: 82477668 (2) Stable angina ICD Codes: I20.8 - Other forms of angina pectoris SNOMED: 526408168 (3) Hypothyroid ICD Codes: E03.9 - Hypothyroidism, unspecified SNOMED: 79769698 (4) Failure to thrive SNOMED: 14748362 Status: stable, deteriorating Assessment/Plan: tube feeds as tolerated gi follow up regarding increased residuals reglan changed to iv oral grat med compliance stressed. monitor wbc follow up labs dvt/stress ulcer prophylaxis thyroid replacement rx skin care turn q2 dc planning once tolerating feeds Tino Murillo MD Apr 15, 2020 06:42
[2020-04-15] MEDS ORDERED: Metoclopramide 10mg/2ml Inj IVP PRN (07:00)
--- NOTE | 2020-04-15 07:15 | NUR ---
NURSE HAND-OFF: Important Events on Shift:[still residual; MD aware, new order for IV reglan prn n/v, left message to dr. ambrose re: clarification if it is for nausea/vomiting or residual, awaiting response from MD. Dressing changed on sacrum] Patient Status: [] Diet: [TF Vital af 1.2@ 50cc/hr] Pending Orders: [] Pending Results/Labs:[] Pending MD notification:[awaiting clarification of reglan order] Latest Vital Signs: Temperature 97.0 , Pulse 88 , B/P 133 /73 , Respiratory Rate 18 , O2 SAT 98 , Room Air, O2 Flow Rate 3 . Vital Sign Comment: [] Latest Henderson Fall Score: 50 Fall Risk: High Risk Safety Measures: Call light Within Reach, Bed Alarm Zone 1, Side Rails Side Rails x3, Bed position Low and Locked. Fall Precautions: Yellow Socks Yellow Gown Door Sign Patient Fall Education Report given to [Britney MCKENZIE].
--- NOTE | 2020-04-15 07:29 | NUR ---
NURSE NOTES: Patient received in bed, asleep, in room air with breathing even and unlabored, no S/S of pain or discomfort. GTF Vital AF 1.2 on hold due to high GR (80cc per NOC JONAH Armendariz report and documentation), HOB elevated > 60 degrees, aspiration precautions, with abdominal binder. R hand IV access, SL . Patient is incontinent, on Pureweek external urinary catheter draining yellow crystalline urine. Bed locked at the lowest position possible, call light within easy reach, side rails upx3, on bed alarm. Will continue to monitor patient and follow up with the plan of care.
[2020-04-15 08:00] VITALS: BP 112/59
[2020-04-15] MEDS: Losartan 50mg tab GT SCH (08:27)
[2020-04-15] MEDS: Docusate 100mg/10ml Liq GT SCH ×2 (08:53→17:23)
[2020-04-15] MEDS: Multivitamins W/Minerals 15 ML UDC GT SCH (08:54)
[2020-04-15] MEDS: Lyrica 50mg cap ORAL SCH ×2 (08:54→17:24)
[2020-04-15] MEDS: Heparin 5000 units/ml inj SUBQ SCH ×2 (08:56→20:17)
--- NOTE | 2020-04-15 09:30 | NUR ---
NURSE NOTES: patient had a soft BM and urine leak as Pureweek malpositioned. Changed dressing sacral, presenting redness and light excoriation at buttocks. Cleansed with NS, pat dried and applied moisture barrier wipe and optifoam. Also cleansed GT insertion, presenting dried blood around insertion, slight redness, dr Knutson notified, no new orders only to monitor.
--- NOTE | 2020-04-15 10:12 | NUR ---
NURSE NOTES: notified high residual overnight, obtained order to hold GTF if GR > 75cc. Processed order.
[2020-04-15 12:00] VITALS: BP 106/56
[2020-04-15] MEDS ORDERED: Tylenol #3 tab (300mg/30mg) ORAL PRN (12:30)
--- NOTE | 2020-04-15 14:18 | NUR ---
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
--- NOTE | 2020-04-15 15:20 | NUR ---
NURSE NOTES: patient had a semi-liquid BM mixed with urine as there's leak, the Pureweek is malpositioned. Changed dressing sacral, presenting redness and light excoriation at buttocks. Cleansed with NS, pat dried and applied moisture barrier wipe and optifoam. ELIZABETH Krishna help primary nurse changing dressing.
[2020-04-15 16:00] VITALS: BP 103/51
--- NOTE | 2020-04-15 18:58 | NUR ---
NURSE HAND-OFF: Important Events on Shift:[] Patient Status: [stable] Diet: [GTF Vital AF 1.2 @50cc/hr] Pending Orders: [] Pending Results/Labs:[] Pending MD notification:[] Latest Vital Signs: Temperature 98.1 , Pulse 85 , B/P 103 /51 , Respiratory Rate 20 , O2 SAT 97 , Room Air, O2 Flow Rate 3 . Vital Sign Comment: [] Latest Henderson Fall Score: 50 Fall Risk: High Risk Safety Measures: Call light Within Reach, Bed Alarm Zone 1, Side Rails Side Rails x3, Bed position Low and Locked. Fall Precautions: Yellow Socks Yellow Gown Door Sign Patient Fall Education Report given to [JONAH Chan].
--- NOTE | 2020-04-15 19:25 | NUR ---
NURSE NOTES: Received report from idlan brown. patient on bed, asleep. no facial grimacing, no moaning. on room air. no sob. with iv line on the right hand, saline lock. per dilan brown " she hold the feeding for residual of 75 ml/hr and resumed the feeding after she got 30 ml/hr of residual". with gt feeding running vital af 1.2 at 50 ml/hr with abdominal binder. residuals checked with 30 ml of feeding. kept head of bed elevated. bed locked and in lowest position. call light and light button within easy reach. will continue to monitor for residual and plan of care.
[2020-04-15 20:00] VITALS: BP 107/52
[2020-04-15] MEDS: Piperacillin/Tazobactam 3.375 GM in NS 110 ML IVPB SCH (21:24)
--- NOTE | 2020-04-15 22:00 | NUR ---
NURSE NOTES: RESIDUAL CHECKED OF 50 ML. KEPT HEAD OF BED ELEVATED. CHARGED NURSE MADE AWARE
--- NOTE | 2020-04-15 22:21 | General Progress Note ---
Subjective Allergies: Coded Allergies: No Known Allergies (Unverified , 01/05/18) Subjective Above noted no events overnight d/w RN re TF Objective Last 24 Hour Vital Signs Date Time Temp Pulse Resp B/P (MAP) Pulse Ox O2 Delivery O2 Flow Rate FiO2 04/15/20 20:00 98.7 88 20 107/52 (70) 97 04/15/20 16:00 98.1 85 20 103/51 (68) 97 04/15/20 12:00 98.1 84 20 106/56 (73) 97 04/15/20 09:00 Room Air Room Air 04/15/20 08:27 112/59 04/15/20 08:00 98.1 87 20 112/59 (76) 94 04/15/20 04:00 97.0 88 18 133/73 (93) 98 04/15/20 00:00 97.3 94 18 127/73 (91) 94 Intake and Output 04/14/20 04/15/20 19:00 07:00 Intake Total 800 ml 300 ml Output Total 500 ml Balance 800 ml -200 ml Free Water 200 ml 50 ml IV Total 200 ml Tube Feeding 400 ml 250 ml Output Urine Total 500 ml # Bowel Movements 1 Height (Feet): 5 Height (Inches): 3.00 Weight (Pounds): 54 Objective Debilitated woman NCAT supple CTA RR abd soft, (+) GT no edema Assessment/Plan Status: stable, deteriorating Assessment/Plan: Assessment - encephalopathy / catatonia - FTT, poor po --> s/p PEG - CVA - HTN Recommendation - Continue TF - replace lytes PRN - elevate HOB - d/c planning Arron Knutson MD Apr 15, 2020 22:21
[2020-04-16] VITALS: BP 115/53
--- NOTE | 2020-04-16 00:44 | Cardiology Progress Note ---
Subjective DATE OF SERVICE: Apr 15, 2020 s/p PEG with feedings not being tolerated; still with residuals. 2D Echo revealed Normal LV ejection fxn and no significant valvular disease WBC elevations over past 2 days. Urine culture is positive. Objective Last 24 Hour Vital Signs Date Time Temp Pulse Resp B/P (MAP) Pulse Ox O2 Delivery O2 Flow Rate FiO2 04/16/20 00:00 98.5 92 20 115/53 (73) 96 04/15/20 21:00 Room Air Room Air 04/15/20 20:00 98.7 88 20 107/52 (70) 97 04/15/20 16:00 98.1 85 20 103/51 (68) 97 04/15/20 12:00 98.1 84 20 106/56 (73) 97 04/15/20 09:00 Room Air Room Air 04/15/20 08:27 112/59 04/15/20 08:00 98.1 87 20 112/59 (76) 94 04/15/20 04:00 97.0 88 18 133/73 (93) 98 ROS: unchanged from my evaluation of 04/07/12 RHYTHM: NSR LUNGS: lungs clear bilaterally CARDIAC: normal rate, regular rhythm, normal S1 and S2, gallop/S4 ABDOMEN: normal bowel sounds, non tender, soft, no organomegaly, G-Tube intact EXTREMITIES: normal range of motion, No edema Microbiology Date/Time Source Procedure Growth Status 04/14/20 02:00 Urine,Clean Catch Urine Culture - Preliminary Gram Negative Bacillus 1 Resulted Assessment/Plan Assessment/Plan Failure to thrive UTI - hospital acquired Dysphagia - s/p PEG Decubiti Hypokalemia Hypomagnesemia Hypernatremia Dehydration/hypovolemia Mod-severe protein-calorie malnutrition CVA/dementia Hypertension/HHD Hypothyroidism Follow-up final urine culture. Empiric IV antibiotics added. Replace K+/Mg++ as needed Off IVF DVT prophyl DC planning reviewed with Chaim Gasca MD Apr 16, 2020 00:44
[2020-04-16 04:00] VITALS: BP 101/57
[2020-04-16] MEDS: Piperacillin/Tazobactam 3.375 GM in NS 110 ML IVPB SCH (06:12)
--- NOTE | 2020-04-16 06:20 | NUR ---
NURSE NOTES: DR. BEYER CAME AND VISIT THE PATIENT. DR. BEYER IS AWARE REGARDING THE RESIDUAL THROUGH OUT THE SHIFT.
--- NOTE | 2020-04-16 06:30 | NUR ---
NURSE NOTES: PATIENT'S URINE CULTURE RESULT IS +ESBL. DR. MARTINO IS AWARE. PATIENT IS ON ZOSYN 3.375 q6H. CHARGE NURSE MADE AWARE Addendum: 04/16/20 at 0647 by Betty Chan RN WRONG ENTRY
--- NOTE | 2020-04-16 06:31 | NUR ---
NURSE NOTES: PATIENT'S URINE CULTURE RESULT IS +ESBL. DR. MARTINO IS AWARE. PATIENT IS ON ZOSYN 3.375 q8H. CHARGE NURSE MADE AWARE
--- NOTE | 2020-04-16 06:34 | NUR ---
NURSE HAND-OFF: Important Events on Shift: MONITORING FOR RESIDUAL OF GT FEEDING; RESIDUAL OF 30-50ML. Patient Status: STABLE Diet: VITAL AF 1.2 @ 50 ML/HR Pending Orders: Pending Results/Labs: Pending MD notification: Latest Vital Signs: Temperature 98.0 , Pulse 86 , B/P 101 /57 , Respiratory Rate 19 , O2 SAT 96 , Room Air, O2 Flow Rate 3 . Vital Sign Comment: Latest Henderson Fall Score: 50 Fall Risk: High Risk Safety Measures: Call light Within Reach, Bed Alarm Zone 1, Side Rails Side Rails x3, Bed position Low and Locked. Fall Precautions: Yellow Socks Yellow Gown Door Sign Patient Fall Education Addendum: 04/16/20 at 0648 by Betty Chan RN + ESBL URINE. IS AWARE. ON [facility] q8H
--- NOTE | 2020-04-16 07:31 | NUR ---
HAND-OFF: Report given to JONAH HILLIARD.
--- NOTE | 2020-04-16 07:57 | NUR ---
NURSE NOTES: Patient received from JONAH Lynn. Patient seen lying in bed with HOB elevated. Currently on room air, no s/sx of SOB/Distress, no s/sx of any discomfort. Patient currently on GTube feeding currently running Vital Af 1.2, noted 50 cc residual. IV site located on Right hand gauge 24. Asymptomatic, inplace, and intact. Bed placed on lowest and locked, call light placed within reach and will continue to monitor.
[2020-04-16 08:00] VITALS: BP 122/66
--- NOTE | 2020-04-16 09:18 | General Progress Note ---
Subjective ROS Limited/Unobtainable: No Constitutional: Reports: malaise, weakness HEENT: Reports: no symptoms Cardiovascular: Reports: no symptoms Respiratory: Reports: no symptoms Gastrointestinal/Abdominal: Reports: difficulty swallowing, poor appetite, poor fluid intake Genitourinary: Reports: no symptoms Neurologic/Psychiatric: Reports: no symptoms Endocrine: Reports: no symptoms Hematologic/Lymphatic: Reports: no symptoms Allergies: Coded Allergies: No Known Allergies (Unverified , 01/05/18) All Systems: reviewed and negative except above Subjective no events. feeds currently on hold due to increased residuals. Residuals improving though. not as high as yesterday. +ESBL uti. on iv zosyn. Objective Last 24 Hour Vital Signs Date Time Temp Pulse Resp B/P (MAP) Pulse Ox O2 Delivery O2 Flow Rate FiO2 04/16/20 04:00 98.0 86 19 101/57 (72) 96 04/16/20 00:00 98.5 92 20 115/53 (73) 96 04/15/20 21:00 Room Air Room Air 04/15/20 20:00 98.7 88 20 107/52 (70) 97 04/15/20 16:00 98.1 85 20 103/51 (68) 97 04/15/20 12:00 98.1 84 20 106/56 (73) 97 Intake and Output 04/15/20 04/16/20 19:00 07:00 Intake Total 570 ml Balance 570 ml Free Water 120 ml Tube Feeding 450 ml # Voids 2 3 Height (Feet): 5 Height (Inches): 3.00 Weight (Pounds): 54 Objective General Appearance: WD/WN, no apparent distress, alert EENT: normal ENT inspection Neck: non-tender, normal alignment Cardiovascular: normal peripheral pulses, normal rate Respiratory/Chest: chest wall non-tender, lungs clear, normal breath sounds Abdomen: normal bowel sounds, non tender, soft, no organomegaly Edema: no edema noted Arm (L), no edema noted Arm (R) Neurologic: alert, normal mood/affect, disoriented Assessment/Plan Problem List: (1) Hypertension ICD Codes: I10 - Essential (primary) hypertension SNOMED: 71109954 (2) Stable angina ICD Codes: I20.8 - Other forms of angina pectoris SNOMED: 233452520 (3) Hypothyroid ICD Codes: E03.9 - Hypothyroidism, unspecified SNOMED: 38657067 (4) Failure to thrive SNOMED: 36904479 Status: stable, deteriorating Assessment/Plan: tube feeds as tolerated gi follow up regarding increased residuals reglan changed to iv oral grat iv zosyn for esbl uti monitor wbc - labs pending for today follow up labs dvt/stress ulcer prophylaxis thyroid replacement rx skin care turn q2 dc planning once tolerating feeds Tino Murillo MD Apr 16, 2020 09:17
[2020-04-16] MEDS: Docusate 100mg/10ml Liq GT SCH ×2 (09:19→17:41)
[2020-04-16] MEDS: Multivitamins W/Minerals 15 ML UDC GT SCH (09:19)
[2020-04-16] MEDS: Losartan 50mg tab GT SCH (09:20)
[2020-04-16] MEDS: Lyrica 50mg cap ORAL SCH ×2 (09:20→17:41)
[2020-04-16] MEDS: Heparin 5000 units/ml inj SUBQ SCH ×2 (09:22→20:14)
[2020-04-16 10:13] LABS: BASOPHILS % (AUTO) 1.1 % (0.0-2.0); EOSINOPHILS % (AUTO) 2.8 % (0.0-3.0); HEMATOCRIT 36.1 % (37.0-47.0); HEMOGLOBIN 11.4 G/DL (12.0-16.0); LYMPHOCYTES % (AUTO) 30.2 % (20.0-45.0); MEAN CORPUSCULAR VOLUME 99 FL (80-99); MONOCYTES % (AUTO) 7.8 % (1.0-10.0); NEUTROPHILS % (AUTO) 58.2 % (45.0-75.0); PLATELET COUNT 268 K/UL (150-450); RED BLOOD COUNT 3.65 M/UL (4.20-5.40); WHITE BLOOD COUNT 12.7 K/UL (4.8-10.8)
[2020-04-16 10:26] LABS: ALANINE AMINOTRANSFERASE 19 U/L (12-78); ALBUMIN 2.2 G/DL (3.4-5.0); ALBUMIN/GLOBULIN RATIO 0.6 (1.0-2.7); ALKALINE PHOSPHATASE 70 U/L (46-116); ANION GAP 4 mmol/L (5-15); ASPARTATE AMINO TRANSFERASE 20 U/L (15-37); BILIRUBIN,TOTAL 0.3 MG/DL (0.2-1.0); BLOOD UREA NITROGEN 19 mg/dL (7-18); CALCIUM 8.3 MG/DL (8.5-10.1); CARBON DIOXIDE 28 MMOL/L (21-32); CHLORIDE 107 MMOL/L (98-107); CREATININE 0.9 MG/DL (0.55-1.30); POTASSIUM 4.4 MMOL/L (3.5-5.1); SODIUM 138 MMOL/L (136-145)
[2020-04-16 12:00] VITALS: BP 120/63
[2020-04-16] MEDS: Meropenem 500 MG in NS 55 ML IVPB SCH ×2 (13:16→21:34)
--- NOTE | 2020-04-16 13:45 | Consultation ---
DATE OF CONSULTATION: 04/16/2020 INFECTIOUS DISEASES CONSULTATION CONSULTING PHYSICIAN: Alvin Eller MD. REFERRING PHYSICIAN: Chaim De Luna MD. REASON FOR CONSULTATION: Urinary tract infection. HISTORY OF PRESENT ILLNESS: This is a 70-year-old lady with history of hypertension, hypothyroidism, angina who was admitted previously with COVID-19 pneumonia. Now, she was found to have urinary tract infection and an Infectious Diseases consultation has been obtained for antibiotics. PAST MEDICAL HISTORY: 1. History of hypertension. 2. Hypothyroidism. 3. Obesity. 4. Angina. 5. COVID-19 pneumonia. SOCIAL HISTORY: She does not smoke, drink, or use drugs. FAMILY HISTORY: Unknown. REVIEW OF SYSTEMS: Unable to obtain currently. MEDICATIONS: As an inpatient, she is on Zosyn, Tylenol No.3, metoclopramide, levothyroxine, Remeron, docusate, Prevacid, multivitamin, losartan, subcutaneous heparin, Lyrica. ALLERGIES: No known drug allergies. PHYSICAL EXAMINATION: VITAL SIGNS: Temperature of 97.5, T-max of 98.7, pulse of 84, respiratory rate 20, blood pressure 122/66, O2 saturation of 95% on room air. HEENT: Pupils are equally reactive to light and accommodation. Mouth appears clean without thrush. NECK: Supple. No adenopathy. No JVD. CARDIOVASCULAR: Regular rate and rhythm. No murmurs. LUNGS: Clear to auscultation bilaterally. No crackles. No wheezes. ABDOMEN: Soft and nontender. G-tube site appears clean. EXTREMITIES: No cyanosis, no clubbing, no edema. LABORATORY AND DIAGNOSTIC DATA: White count 12.7, hemoglobin 11.4, hematocrit 36.1, MCV 99, platelet count 268 with neutrophils of 58%. Sodium 138, potassium 4.4, chloride 107, bicarb 28, BUN 19, creatinine 0.9, glucose 112, calcium 8.3. Total bilirubin 0.3, AST 20, ALT 19, alkaline phosphatase 70, total protein 6.1, albumin 2.2. UA showing 5 to 10 white cells. Urine culture is growing ESBL E.coli, which is susceptible to piperacillin-tazobactam, meropenem, gentamicin. COVID-19 test was negative on 04/11/2020. Nasal swab was positive for MRSA. On 04/07/2020, COVID-19 was negative. On 04/07/2020, blood cultures are negative. On 04/07/2020 rectal swab was negative for VRE. Chest x-ray is showing small left-sided pleural effusion, possible tiny right-sided pleural effusion, subsegmental atelectasis in the bilateral lung bases. A 2D echocardiogram showing mild left ventricular hypertrophy, small pericardial effusion, large pleural effusion, trace tricuspid regurgitation. ASSESSMENT: This is a 70-year-old lady with history of hypertension, angina, hypothyroidism, as well as COVID-19 pneumonia previously who comes in now with poor p.o. intake and is found to have. 1. E. coli ESBL urinary tract infection. 2. MRSA nasal colonization. 3. Leukocytosis. 4. Hypertension. PLAN: 1. Discontinue Zosyn. 2. We will start the patient on meropenem. 3. We will follow up cultures. I would like to thank, Dr. De Luna, for this consultation. Alvin Eller M.D. DR: Melisa JOB#: [id number] CC: Chaim De Luna M.D.
[2020-04-16 16:00] VITALS: BP 109/62
--- NOTE | 2020-04-16 19:13 | NUR ---
NURSE HAND-OFF: Important Events on Shift:monitoring gt residual, pain management Patient Status: stable Diet: vital af 1.2 @50 Pending Orders: n/a Pending Results/Labs:n/a Pending MD notification:n/a Latest Vital Signs: Temperature 98.1 , Pulse 76 , B/P 109 /62 , Respiratory Rate 20 , O2 SAT 96 , Room Air, O2 Flow Rate 3 . Vital Sign Comment: stable Latest Henderson Fall Score: 50 Fall Risk: High Risk Safety Measures: Call light Within Reach, Bed Alarm Zone 1, Side Rails Side Rails x3, Bed position Low and Locked. Fall Precautions: Yellow Socks Yellow Gown Door Sign Patient Fall Education Report given to JONAH Lynn.
--- NOTE | 2020-04-16 19:13 | NUR ---
NURSE NOTES: Received report from dilan chavez. patient on bed, asleep. no facial grimacing, no moaning. on room air. no sob. with iv line on the right hand, saline lock. per dilan chavez " her residual was 5-55 ml/hr.. with gt feeding running vital af 1.2 at 50 ml/hr with abdominal binder. residuals checked with 20 ml of feeding. kept head of bed elevated. bed locked and in lowest position. with purewick in placed. call light and light button within easy reach. will continue to monitor for residual and plan of care.
[2020-04-16 20:00] VITALS: BP 108/60
--- NOTE | 2020-04-16 20:33 | General Progress Note ---
Subjective Allergies: Coded Allergies: No Known Allergies (Unverified , 01/05/18) Subjective Above noted no events overnight d/w RN re TF some residuals noted overnight Objective Last 24 Hour Vital Signs Date Time Temp Pulse Resp B/P (MAP) Pulse Ox O2 Delivery O2 Flow Rate FiO2 04/16/20 16:00 98.1 76 20 109/62 (78) 96 04/16/20 12:00 97.7 79 20 120/63 (82) 95 04/16/20 09:20 122/66 04/16/20 09:00 Room Air Room Air 04/16/20 08:00 97.5 84 20 122/66 (84) 95 04/16/20 04:00 98.0 86 19 101/57 (72) 96 04/16/20 00:00 98.5 92 20 115/53 (73) 96 04/15/20 21:00 Room Air Room Air Intake and Output 04/15/20 04/16/20 19:00 07:00 Intake Total 570 ml Balance 570 ml Free Water 120 ml Tube Feeding 450 ml # Voids 2 3 Laboratory Tests 04/16/20 09:40: White Blood Count 12.7H, Red Blood Count 3.65L, Hemoglobin 11.4L, Hematocrit 36.1L, Mean Corpuscular Volume 99, Mean Corpuscular Hemoglobin 31.2H, Mean Corpuscular Hemoglobin Concent 31.5L, Red Cell Distribution Width 15.0H, Platelet Count 268, Mean Platelet Volume 7.1, Neutrophils (%) (Auto) 58.2, Lymphocytes (%) (Auto) 30.2, Monocytes (%) (Auto) 7.8, Eosinophils (%) (Auto) 2.8, Basophils (%) (Auto) 1.1, Sodium Level 138, Potassium Level 4.4, Chloride Level 107, Carbon Dioxide Level 28, Anion Gap 4L, Blood Urea Nitrogen 19H, Creatinine 0.9, Estimat Glomerular Filtration Rate > 60, Glucose Level 112H, Calcium Level 8.3L, Total Bilirubin 0.3, Aspartate Amino Transf (AST/SGOT) 20, Alanine Aminotransferase (ALT/SGPT) 19, Alkaline Phosphatase 70, Total Protein 6.1L, Albumin 2.2L, Globulin 3.9, Albumin/Globulin Ratio 0.6L Height (Feet): 5 Height (Inches): 3.00 Weight (Pounds): 54 Objective Debilitated woman NCAT supple CTA RR abd soft, (+) GT no edema Assessment/Plan Status: stable, deteriorating Assessment/Plan: Assessment - encephalopathy / catatonia - FTT, poor po --> s/p PEG - CVA - HTN Recommendation - Continue TF - replace lytes PRN - elevate HOB - monitor residuals - consider motility agents Arron Knutson MD Apr 16, 2020 20:33
--- NOTE | 2020-04-16 23:44 | Cardiology Progress Note ---
Subjective DATE OF SERVICE: Apr 16, 2020 s/p PEG with feedings not being tolerated; still with residuals. 2D Echo revealed Normal LV ejection fxn and no significant valvular disease WBC elevations over past 2 days. Urine culture is positive for ESBL E.coli; ID consult noted. Objective Last 24 Hour Vital Signs Date Time Temp Pulse Resp B/P (MAP) Pulse Ox O2 Delivery O2 Flow Rate FiO2 04/16/20 21:00 Room Air Room Air 04/16/20 20:00 97.9 79 20 108/60 (76) 95 04/16/20 16:00 98.1 76 20 109/62 (78) 96 04/16/20 12:00 97.7 79 20 120/63 (82) 95 04/16/20 09:20 122/66 04/16/20 09:00 Room Air Room Air 04/16/20 08:00 97.5 84 20 122/66 (84) 95 04/16/20 04:00 98.0 86 19 101/57 (72) 96 04/16/20 00:00 98.5 92 20 115/53 (73) 96 ROS: unchanged from my evaluation of 04/07/12 RHYTHM: NSR LUNGS: lungs clear bilaterally CARDIAC: normal rate, regular rhythm, normal S1 and S2, gallop/S4 ABDOMEN: normal bowel sounds, non tender, soft, no organomegaly, G-Tube intact EXTREMITIES: normal range of motion, No edema Laboratory Tests Test 04/16/20 09:40 White Blood Count 12.7 K/UL (4.8-10.8) H Red Blood Count 3.65 M/UL (4.20-5.40) L Hemoglobin 11.4 G/DL (12.0-16.0) L Hematocrit 36.1 % (37.0-47.0) L Mean Corpuscular Volume 99 FL (80-99) Mean Corpuscular Hemoglobin 31.2 PG (27.0-31.0) H Mean Corpuscular Hemoglobin Concent 31.5 G/DL (32.0-36.0) L Red Cell Distribution Width 15.0 % (11.6-14.8) H Platelet Count 268 K/UL (150-450) Mean Platelet Volume 7.1 FL (6.5-10.1) Neutrophils (%) (Auto) 58.2 % (45.0-75.0) Lymphocytes (%) (Auto) 30.2 % (20.0-45.0) Monocytes (%) (Auto) 7.8 % (1.0-10.0) Eosinophils (%) (Auto) 2.8 % (0.0-3.0) Basophils (%) (Auto) 1.1 % (0.0-2.0) Sodium Level 138 MMOL/L (136-145) Potassium Level 4.4 MMOL/L (3.5-5.1) Chloride Level 107 MMOL/L (98-107) Carbon Dioxide Level 28 MMOL/L (21-32) Anion Gap 4 mmol/L (5-15) L Blood Urea Nitrogen 19 mg/dL (7-18) H Creatinine 0.9 MG/DL (0.55-1.30) Estimat Glomerular Filtration Rate > 60 mL/min (>60) Glucose Level 112 MG/DL (74-106) H Calcium Level 8.3 MG/DL (8.5-10.1) L Total Bilirubin 0.3 MG/DL (0.2-1.0) Aspartate Amino Transf (AST/SGOT) 20 U/L (15-37) Alanine Aminotransferase (ALT/SGPT) 19 U/L (12-78) Alkaline Phosphatase 70 U/L (46-116) Total Protein 6.1 G/DL (6.4-8.2) L Albumin 2.2 G/DL (3.4-5.0) L Globulin 3.9 g/dL Albumin/Globulin Ratio 0.6 (1.0-2.7) L Microbiology Date/Time Source Procedure Growth Status 04/14/20 02:00 Urine,Clean Catch Urine Culture - Preliminary Escherichia Coli - Esbl Resulted Assessment/Plan Assessment/Plan Failure to thrive UTI - hospital acquired Dysphagia - s/p PEG Gastroparesis Decubiti Hypokalemia Hypomagnesemia Hypernatremia Dehydration/hypovolemia Mod-severe protein-calorie malnutrition CVA/dementia Hypertension/HHD Hypothyroidism IV antibiotics per ID. Replace K+/Mg++ as needed Off IVF DVT prophyl DC planning reviewed with Chaim Lara MD Apr 16, 2020 23:44
[2020-04-17] VITALS: BP 100/62
--- NOTE | 2020-04-17 | NUR ---
NURSE NOTES: 10 ML OF RESIDUAL CHECKED IN GT FEEDING. KEPT HEAD OF BED ELEVATED.
[2020-04-17 04:00] VITALS: BP 103/63
[2020-04-17] MEDS: Meropenem 500 MG in NS 55 ML IVPB SCH ×3 (05:39→21:00)
--- NOTE | 2020-04-17 06:13 | NUR ---
NURSE HAND-OFF: Important Events on Shift: 10-20 ML OF RESIDUAL ON GT FEEDING;ASPIRATION PRECAUTION Patient Status: STABLE Diet: VITAL AF 1.2 @ 50 ML/HR Pending Orders: Pending Results/Labs: Pending MD notification: Latest Vital Signs: Temperature 97.7 , Pulse 83 , B/P 103 /63 , Respiratory Rate 20 , O2 SAT 96 , Room Air, O2 Flow Rate 3 . Vital Sign Comment: Latest Henderson Fall Score: 50 Fall Risk: High Risk Safety Measures: Call light Within Reach, Bed Alarm Zone 1, Side Rails Side Rails x3, Bed position Low and Locked. Fall Precautions: Yellow Socks Yellow Gown Door Sign Patient Fall Education
--- NOTE | 2020-04-17 07:08 | NUR ---
HAND-OFF: Report given to dilan chavez.
--- NOTE | 2020-04-17 07:12 | NUR ---
NURSE NOTES: Report received from JONAH Lynn. Patient observed to be sleeping. With HOB elevated, currently on room air. No s/sx of SOB/Distress, no verbalization of any pain or discomfort. Patient with GTube running Vital AF 1.2 tolerating feeding well with 15ml of residual. IV site located on Right Hand gauge 24, asymptomatic, inplace and intact. Bed placed on lowest and locked, call light placed within reach and will continue to monitor for any changes in condition.
[2020-04-17 08:00] VITALS: BP 114/68
[2020-04-17] MEDS: Multivitamins W/Minerals 15 ML UDC GT SCH (08:32)
[2020-04-17] MEDS: Docusate 100mg/10ml Liq GT SCH ×2 (08:32→17:46)
[2020-04-17] MEDS: Losartan 50mg tab GT SCH (08:32)
[2020-04-17] MEDS: Lyrica 50mg cap ORAL SCH ×2 (08:32→17:46)
[2020-04-17] MEDS: Heparin 5000 units/ml inj SUBQ SCH ×2 (08:33→20:53)
--- NOTE | 2020-04-17 09:16 | NUR ---
RD ASSESSMENT & RECOMMENDATIONS SEE CARE ACTIVITY FOR COMPLETE ASSESSMENT DAILY ESTIMATED NEEDS: Needs based on Wound, 52.7kg 25-30 kcals/kg 0705-4700 total kcals 1.25-1.5 g protein/kg 66-79 g total protein 25-30 mL/kg 6149-3389 total fluid mLs NUTRITION DIAGNOSIS: Increased kcal and pro needs r/t wound healing as evidenced by stage two on sacral, DTI on right heel and stage 1 on left heel, adm w/ FTT, consistently poor PO w/ mostly refusing meals, now s/p PEG placement (04/11). CURRENT TF: Vital @50ml/hr ENTERAL NUTRITION RECOMMENDATIONS: Osmolite 1.2 @60ml/hr x22 hrs (hold 1 hr before and after Synthroid) to provide 1320ml, 1584kcal, 73g prot, 1082ml free water - Pt is s/p PEG. - Once tolerating Vital 1.2, consider TF change to Osmolite 1.2 @ low rate 20ml/hr for 6 hrs. Advance 10ml q 4-6 hrs as tolerated to goal. - HOB over 30 degrees. - Hold 1 hr before and after Synthroid med ADDITIONAL RECOMMENDATIONS: * Calibrated bedscale wt daily * Monitor PO intake closely- FTT dx, refusing meals -> now s/p PEG placement (04/11) * Wound healing: add Vit C 500mg QD + Gee BID * Multiple episodes of residuals, consider above TF change for improved GI tolerance-> now improved (10ml, 10ml residuals)
--- NOTE | 2020-04-17 11:16 | Infectious Diseases Prog Note ---
Assessment/Plan Assessment/Plan antibiotics : meropenem A 1. e.coli UTI 2. hypertension 3. leucocytosis 4. MRSA nasal colonization P 1, continue meropenem 4 more days 2. will follow up cultures Subjective ROS Limited/Unobtainable: Yes Allergies: Coded Allergies: No Known Allergies (Unverified , 01/05/18) Objective Last 24 Hour Vital Signs Date Time Temp Pulse Resp B/P (MAP) Pulse Ox O2 Delivery O2 Flow Rate FiO2 04/17/20 09:00 Room Air Room Air 04/17/20 08:32 114/68 04/17/20 08:00 97.7 89 21 114/68 (83) 95 04/17/20 04:00 97.7 83 20 103/63 (76) 96 04/17/20 00:00 98.6 82 20 100/62 (75) 98 04/16/20 21:00 Room Air Room Air 04/16/20 20:00 97.9 79 20 108/60 (76) 95 04/16/20 16:00 98.1 76 20 109/62 (78) 96 04/16/20 12:00 97.7 79 20 120/63 (82) 95 Height (Feet): 5 Height (Inches): 3.00 Weight (Pounds): 54 Respiratory/Chest: lungs clear Cardiovascular: normal rate, regular rhythm, no gallop/murmur Abdomen: soft, non tender, other - GT Extremities: no edema Current Medications Medications (Trade) Dose Ordered Sig/Geoffrey Route PRN Reason Start Time Stop Time Status Last Admin Dose Admin Acetaminophen/ Codeine Phosphate (Tylenol #3) 1 tab EVERY 8 HOURS PRN ORAL For Pain 04/15/20 12:30 04/22/20 12:29 Docusate Sodium (Colace) 100 mg TWICE A DAY GT 04/11/20 18:00 05/11/20 17:59 04/17/20 08:32 Heparin Sodium (Porcine) (Heparin 5000 units/ml) 5,000 units EVERY 12 HOURS SUBQ 04/08/20 09:00 05/23/20 08:59 04/17/20 08:33 Lansoprazole (Prevacid) 30 mg DAILY GT 04/11/20 15:00 05/11/20 14:59 04/17/20 08:32 Levothyroxine Sodium (Synthroid) 75 mcg DAILY@0630 GT 04/12/20 06:30 05/07/20 15:59 04/17/20 05:39 Losartan Potassium (Cozaar) 50 mg DAILY GT 04/11/20 13:30 05/07/20 13:29 04/17/20 08:32 Meropenem 500 mg/ Sodium Chloride 55 ml @ 110 mls/hr EVERY 8 HOURS IVPB 04/16/20 14:00 04/21/20 13:59 04/17/20 05:39 Metoclopramide HCl (Reglan) 10 mg Q8H PRN IVP Nausea & Vomiting 04/15/20 07:00 05/15/20 06:59 Mirtazapine (Remeron) 30 mg BEDTIME GT 04/11/20 21:00 07/09/20 20:59 04/16/20 20:13 Multivitamins (Multivitamins W/ Minerals 15ml Liquid) 15 ml DAILY GT 04/11/20 13:30 05/11/20 13:29 04/17/20 08:32 Pregabalin (Lyrica) 50 mg BID ORAL 04/07/20 18:00 05/07/20 17:59 04/17/20 08:32 Alvin Eller MD Apr 17, 2020 11:16
[2020-04-17 12:00] VITALS: BP 101/50
--- NOTE | 2020-04-17 15:16 | NUR ---
CASE MANAGEMENT:REVIEW 04/17/20 SI: DYSPHAGIA ~ S/P PEG. ESBL UTI 97.7 100 20 101/50 96% ON RA IS: MEROPENEM Q8HRS SYNTHROID GT QD REMERON GT QHS PREVACID GT QD COZAAR GT QD HEPARIN SQ Q12 LYRICA GT BID : MED/SURG STATUS 4 EAST PLAN: TWO DAYS OF HIGH RESIDUALS...LOW RESIDUALS OF TODAY NEW UTI ...ABX CHANGED FROM ZOSYN TO MEROPENEM DC PLANNING TO SNF TOMORROW
--- NOTE | 2020-04-17 15:27 | NUR ---
DISCHARGE PLANNING PER MD'S REQUEST PATIENT HAS BEEN REFERRED TO....[facility] LEFT MESSAGE FOR PATIENT'S BROTHER, MESERET THOMAS CELL [phone] LEFT MESSAGE FOR PATIENT'S [facility]'S FIELD CREW CHIEF, CLIFFORD CALDERÓN, T: [phone]
[2020-04-17 16:00] VITALS: BP 113/75
--- NOTE | 2020-04-17 16:14 | General Progress Note ---
Subjective ROS Limited/Unobtainable: No Constitutional: Reports: malaise, weakness HEENT: Reports: no symptoms Cardiovascular: Reports: no symptoms Respiratory: Reports: no symptoms Gastrointestinal/Abdominal: Reports: difficulty swallowing, poor appetite, poor fluid intake Genitourinary: Reports: no symptoms Neurologic/Psychiatric: Reports: depressed, emotional problems Endocrine: Reports: no symptoms Hematologic/Lymphatic: Reports: no symptoms Allergies: Coded Allergies: No Known Allergies (Unverified , 01/05/18) All Systems: reviewed and negative except above Subjective no complaints. d/w night RN. tolerating feeds. d/w brother. d/w sister. decision re: sn[facility] placement [facility]. on iv abx. Objective Last 24 Hour Vital Signs Date Time Temp Pulse Resp B/P (MAP) Pulse Ox O2 Delivery O2 Flow Rate FiO2 04/17/20 16:00 98.1 100 19 113/75 (88) 95 04/17/20 12:00 97.7 100 20 101/50 (67) 96 04/17/20 09:00 Room Air Room Air 04/17/20 08:32 114/68 04/17/20 08:00 97.7 89 21 114/68 (83) 95 04/17/20 04:00 97.7 83 20 103/63 (76) 96 04/17/20 00:00 98.6 82 20 100/62 (75) 98 04/16/20 21:00 Room Air Room Air 04/16/20 20:00 97.9 79 20 108/60 (76) 95 Intake and Output 04/16/20 04/17/20 19:00 07:00 Intake Total 400 ml 750 ml Balance 400 ml 750 ml Free Water 200 ml 200 ml Tube Feeding 200 ml 550 ml # Voids 6 6 # Bowel Movements 2 Height (Feet): 5 Height (Inches): 3.00 Weight (Pounds): 54 Objective General Appearance: WD/WN, no apparent distress, alert EENT: normal ENT inspection Neck: non-tender, normal alignment Cardiovascular: normal peripheral pulses, normal rate Respiratory/Chest: chest wall non-tender, lungs clear, normal breath sounds Abdomen: normal bowel sounds, non tender, soft, no organomegaly Edema: no edema noted Arm (L), no edema noted Arm (R) Neurologic: alert, normal mood/affect, disoriented Assessment/Plan Problem List: (1) Hypertension ICD Codes: I10 - Essential (primary) hypertension SNOMED: 80002435 (2) Stable angina ICD Codes: I20.8 - Other forms of angina pectoris SNOMED: 003722944 (3) Hypothyroid ICD Codes: E03.9 - Hypothyroidism, unspecified SNOMED: 50515199 (4) Failure to thrive SNOMED: 04116756 Status: stable, deteriorating Assessment/Plan: tube feeds as tolerated po reglan oral grat iv zosyn for esbl uti monitor wbc - trending down follow up labs dvt/stress ulcer prophylaxis thyroid replacement rx skin care turn q2 dc planning once tolerating feeds Tino Murillo MD Apr 17, 2020 16:13
--- NOTE | 2020-04-17 19:07 | NUR ---
NURSE HAND-OFF: Important Events on Shift:atb tx, gtube feeding Patient Status: stable Diet: vital AF 1.2 Pending Orders: n/a Pending Results/Labs:n/a Pending MD notification:n/a Latest Vital Signs: Temperature 98.1 , Pulse 100 , B/P 113 /75 , Respiratory Rate 19 , O2 SAT 95 , Room Air, O2 Flow Rate 3 . Vital Sign Comment: stable Latest Henderson Fall Score: 50 Fall Risk: High Risk Safety Measures: Call light Within Reach, Bed Alarm Zone 1, Side Rails Side Rails x3, Bed position Low and Locked. Fall Precautions: Yellow Socks Yellow Gown Door Sign Patient Fall Education Report given to JONAH Zaidi.
[2020-04-17 20:00] VITALS: BP 111/44
--- NOTE | 2020-04-17 20:25 | General Progress Note ---
Subjective Allergies: Coded Allergies: No Known Allergies (Unverified , 01/05/18) Subjective Above noted no events overnight Objective Last 24 Hour Vital Signs Date Time Temp Pulse Resp B/P (MAP) Pulse Ox O2 Delivery O2 Flow Rate FiO2 04/17/20 16:00 98.1 100 19 113/75 (88) 95 04/17/20 12:00 97.7 100 20 101/50 (67) 96 04/17/20 09:00 Room Air Room Air 04/17/20 08:32 114/68 04/17/20 08:00 97.7 89 21 114/68 (83) 95 04/17/20 04:00 97.7 83 20 103/63 (76) 96 04/17/20 00:00 98.6 82 20 100/62 (75) 98 04/16/20 21:00 Room Air Room Air Intake and Output 04/16/20 04/17/20 19:00 07:00 Intake Total 400 ml 750 ml Balance 400 ml 750 ml Free Water 200 ml 200 ml Tube Feeding 200 ml 550 ml # Voids 6 6 # Bowel Movements 2 Height (Feet): 5 Height (Inches): 3.00 Weight (Pounds): 54 Objective Debilitated woman NCAT supple CTA RR abd soft, (+) GT no edema Assessment/Plan Status: stable, deteriorating Assessment/Plan: Assessment - encephalopathy / catatonia - FTT, poor po --> s/p PEG - CVA - HTN Recommendation - Continue TF - replace lytes PRN - elevate HOB - monitor residuals - consider motility agents Arron Knutson MD Apr 17, 2020 20:25
--- NOTE | 2020-04-17 21:00 | Cardiology Report ---
APPROVED REPORT EKG Measurement Heart [id number] <Conclusion> Normal sinus rhythm Nonspecific ST and T wave abnormality Abnormal ECG
--- NOTE | 2020-04-17 21:00 | NUR ---
NURSE NOTES: Gtube residual is 150cc. Feeding held. Charge nurse made aware.
--- NOTE | 2020-04-17 21:49 | Cardiology Progress Note ---
Subjective DATE OF SERVICE: Apr 17, 2020 s/p PEG with feedings not being tolerated; still with residuals. 2D Echo revealed Normal LV ejection fxn and no significant valvular disease WBC elevations over past 2 days. Urine culture is positive for ESBL E.coli. Objective Last 24 Hour Vital Signs Date Time Temp Pulse Resp B/P (MAP) Pulse Ox O2 Delivery O2 Flow Rate FiO2 04/17/20 16:00 98.1 100 19 113/75 (88) 95 04/17/20 12:00 97.7 100 20 101/50 (67) 96 04/17/20 09:00 Room Air Room Air 04/17/20 08:32 114/68 04/17/20 08:00 97.7 89 21 114/68 (83) 95 04/17/20 04:00 97.7 83 20 103/63 (76) 96 04/17/20 00:00 98.6 82 20 100/62 (75) 98 ROS: unchanged from my evaluation of 04/07/12 RHYTHM: NSR LUNGS: lungs clear bilaterally CARDIAC: normal rate, regular rhythm, normal S1 and S2, gallop/S4 ABDOMEN: normal bowel sounds, non tender, soft, no organomegaly, G-Tube intact EXTREMITIES: normal range of motion, No edema Assessment/Plan Assessment/Plan Failure to thrive UTI - hospital acquired Dysphagia - s/p PEG Gastroparesis Decubiti Hypokalemia Hypomagnesemia Hypernatremia Dehydration/hypovolemia Mod-severe protein-calorie malnutrition CVA/dementia Hypertension/HHD Hypothyroidism IV antibiotics per ID. Replace K+/Mg++ as needed Off IVF DVT prophyl DC planning discussed with patient's brother; he wants patient to discharge to [facility] Chaim De Luna MD Apr 17, 2020 21:49
[2020-04-18] VITALS: BP 111/42
--- NOTE | 2020-04-18 00:30 | NUR ---
NURSE NOTES: Gtube residual 20cc. Feeding continued. Will continue to monitor.
[2020-04-18 04:00] VITALS: BP 99/78
--- NOTE | 2020-04-18 05:00 | NUR ---
NURSE NOTES: Gtube residual is 100cc. Feeding held. Charge nurse made aware.
[2020-04-18] MEDS: Meropenem 500 MG in NS 55 ML IVPB SCH ×3 (05:34→21:55)
--- NOTE | 2020-04-18 06:26 | NUR ---
NURSE NOTES: Patient asleep in bed, on room air, no SOB noted. With IV access on the right hand. With gtube feeding connected to Vital 1.2 AF @ 50cc/hr. With purewick in place. Call light in reach. Bed in lowest, lock engaged and alarm on. WIll continue to monitor. Addendum: 04/18/20 at 0631 by LUCIA MCDANIEL RN This note is for 04/17/201929
--- NOTE | 2020-04-18 06:30 | NUR ---
This note is for 04/17/201929
[2020-04-18 07:15] LABS: ALANINE AMINOTRANSFERASE 11 U/L (12-78); ALBUMIN 2.2 G/DL (3.4-5.0); ALBUMIN/GLOBULIN RATIO 0.6 (1.0-2.7); ALKALINE PHOSPHATASE 61 U/L (46-116); ANION GAP 4 mmol/L (5-15); ASPARTATE AMINO TRANSFERASE 19 U/L (15-37); BILIRUBIN,TOTAL 0.3 MG/DL (0.2-1.0); BLOOD UREA NITROGEN 23 mg/dL (7-18); CALCIUM 9.1 MG/DL (8.5-10.1); CARBON DIOXIDE 29 MMOL/L (21-32); CHLORIDE 106 MMOL/L (98-107); CREATININE 0.9 MG/DL (0.55-1.30); POTASSIUM 5.6 MMOL/L (3.5-5.1); SODIUM 139 MMOL/L (136-145)
[2020-04-18 07:44] LABS: BASOPHILS % (AUTO) 0.7 % (0.0-2.0); HEMOGLOBIN 11.9 G/DL (12.0-16.0); MEAN CORPUSCULAR VOLUME 97 FL (80-99); MONOCYTES % (AUTO) 6.4 % (1.0-10.0); NEUTROPHILS % (AUTO) 60.9 % (45.0-75.0); PLATELET COUNT 284 K/UL (150-450); RED CELL DISTRIBUTION WIDTH 14.5 % (11.6-14.8); WHITE BLOOD COUNT 13.6 K/UL (4.8-10.8)
--- NOTE | 2020-04-18 07:51 | NUR ---
NURSE HAND-OFF: Important Events on Shift: Gtube residual and held feeding, Dr. Murillo made aware. Patient Status: Diet:Vital 1.2 Pending Orders: Pending Results/Labs: Pending MD notification: Latest Vital Signs: Temperature 97.6 , Pulse 79 , B/P 99 /78 , Respiratory Rate 20 , O2 SAT 95 , Room Air, O2 Flow Rate 3 . Vital Sign Comment: Latest Henderson Fall Score: 50 Fall Risk: High Risk Safety Measures: Call light Within Reach, Bed Alarm Zone 1, Side Rails Side Rails x3, Bed position Low and Locked. Fall Precautions: Yellow Socks Yellow Gown Door Sign Patient Fall Education Report given to JONAH Craig.
[2020-04-18 08:00] VITALS: BP 106/69
--- NOTE | 2020-04-18 08:00 | NUR ---
NURSE NOTES: Patient awake to touch,respirations unlabored.Pure wick in place with clear yellow urine noted. Saline lock in place to the right hand.G-tube feedings as ordered,residua,l10cc will monitor.HOB is elevated.Bed alarm is on,call light within reach.
[2020-04-18] MEDS: Losartan 50mg tab GT SCH (09:00)
--- NOTE | 2020-04-18 09:02 | General Progress Note ---
Subjective ROS Limited/Unobtainable: No Constitutional: Reports: malaise, weakness HEENT: Reports: no symptoms Cardiovascular: Reports: no symptoms Respiratory: Reports: no symptoms Gastrointestinal/Abdominal: Reports: difficulty swallowing, poor appetite Genitourinary: Reports: no symptoms Neurologic/Psychiatric: Reports: anxiety, depressed, emotional problems Endocrine: Reports: no symptoms Hematologic/Lymphatic: Reports: no symptoms Allergies: Coded Allergies: No Known Allergies (Unverified , 01/05/18) All Systems: reviewed and negative except above Subjective not tolerating feeds again. increased residuals noted. resting. no distress. easily arousable. no fever or chills. no cp. staff unsure of last bowel movement. Objective Last 24 Hour Vital Signs Date Time Temp Pulse Resp B/P (MAP) Pulse Ox O2 Delivery O2 Flow Rate FiO2 04/18/20 04:00 97.6 79 20 99/78 (85) 95 04/18/20 00:00 97.9 79 20 111/42 (65) 96 04/17/20 21:00 Room Air Room Air 04/17/20 20:00 98.1 86 20 111/44 (66) 93 04/17/20 16:00 98.1 100 19 113/75 (88) 95 04/17/20 12:00 97.7 100 20 101/50 (67) 96 Intake and Output 04/17/20 04/18/20 19:00 07:00 Intake Total 250 ml Output Total 450 ml Balance 250 ml -450 ml Free Water 100 ml Tube Feeding 150 ml Output Urine Total 450 ml # Voids 4 # Bowel Movements 1 Laboratory Tests 04/18/20 05:40: White Blood Count 13.6H, Red Blood Count 3.80L, Hemoglobin 11.9L, Hematocrit 37.0, Mean Corpuscular Volume 97, Mean Corpuscular Hemoglobin 31.2H, Mean Corpuscular Hemoglobin Concent 32.0, Red Cell Distribution Width 14.5, Platelet Count 284, Mean Platelet Volume 6.8, Neutrophils (%) (Auto) 60.9, Lymphocytes (%) (Auto) 29.0, Monocytes (%) (Auto) 6.4, Eosinophils (%) (Auto) 3.0, Basophils (%) (Auto) 0.7, Sodium Level 139, Potassium Level 5.6H, Chloride Level 106, Carbon Dioxide Level 29, Anion Gap 4L, Blood Urea Nitrogen 23H, Creatinine 0.9, Estimat Glomerular Filtration Rate > 60, Glucose Level 106, Calcium Level 9.1, Total Bilirubin 0.3, Aspartate Amino Transf (AST/SGOT) 19, Alanine Aminotransferase (ALT/SGPT) 11L, Alkaline Phosphatase 61, Total Protein 5.6L, Albumin 2.2L, Globulin 3.4, Albumin/Globulin Ratio 0.6L Height (Feet): 5 Height (Inches): 3.00 Weight (Pounds): 54 Objective General Appearance: WD/WN, no apparent distress, alert EENT: normal ENT inspection Neck: non-tender, normal alignment Cardiovascular: normal peripheral pulses, normal rate Respiratory/Chest: chest wall non-tender, lungs clear, normal breath sounds Abdomen: normal bowel sounds, non tender, soft, no organomegaly Edema: no edema noted Arm (L), no edema noted Arm (R) Neurologic: alert, normal mood/affect, disoriented Assessment/Plan Problem List: (1) Hypertension ICD Codes: I10 - Essential (primary) hypertension SNOMED: 98168760 (2) Stable angina ICD Codes: I20.8 - Other forms of angina pectoris SNOMED: 615870057 (3) Hypothyroid ICD Codes: E03.9 - Hypothyroidism, unspecified SNOMED: 51903893 (4) Failure to thrive SNOMED: 46029351 Status: stable, deteriorating Assessment/Plan: tube feeds as tolerated po reglan check kub oral grat iv zosyn for esbl uti monitor wbc - trending down follow up labs dvt/stress ulcer prophylaxis thyroid replacement rx skin care turn q2 dc planning once tolerating feeds Tino Murillo MD Apr 18, 2020 09:02
--- NOTE | 2020-04-18 09:44 | NUR ---
*-*DISCHARGE PLANNING*-* PATIENT HAS BEEN REFERRED TO: [facility] P: [phone] S/W GISSEL, WILL CALL BACK AFTER REVIEW
[2020-04-18] MEDS: Multivitamins W/Minerals 15 ML UDC GT SCH (10:33)
[2020-04-18] MEDS: Lyrica 50mg cap ORAL SCH ×2 (10:34→19:21)
[2020-04-18] MEDS: Docusate 100mg/10ml Liq GT SCH ×2 (10:35→19:20)
[2020-04-18] MEDS: Heparin 5000 units/ml inj SUBQ SCH ×2 (10:42→21:57)
--- NOTE | 2020-04-18 10:53 | NUR ---
RADIOLOGY DEPT., ABDOMEN X-RAY DONE.-P.DYE
[2020-04-18 12:00] VITALS: BP 110/67
--- NOTE | 2020-04-18 12:51 | Diagnostic Imaging Report ---
Indication: Reason For Exam: Constipation Technique: AP views of the abdomen. Comparison: None. Findings: Bowel gas pattern is nonobstructive. Gas is seen throughout the colon, including the rectum. Gastrostomy tube projects over the left upper quadrant. Lung bases are clear. There are severe degenerative changes of the hip joints. There are multilevel discogenic degenerative changes of the visualized spine. IMPRESSION: No radiographic evidence of bowel obstruction.
--- NOTE | 2020-04-18 13:02 | NUR ---
*-*DISCHARGE PLANNING*-* PATIENT HAS BEEN ACCEPTED TO: [facility] P: [phone] ROOM# 13.A
--- NOTE | 2020-04-18 14:00 | NUR ---
CHARGE NURSE NOTE: K-5.6, , notified. No new orders from .
--- NOTE | 2020-04-18 15:07 | Infectious Diseases Prog Note ---
Assessment/Plan Assessment/Plan A 1. E.coli UTI 2. Hypertension 3. Leucocytosis 4. MRSA nasal colonization 5. FTT s/p GT P 1, continue meropenem 3 more days 2. will follow up cultures Subjective ROS Limited/Unobtainable: Yes Constitutional: Reports: no symptoms Respiratory: Reports: productive cough Musculoskeletal: Reports: pain, other - back Allergies: Coded Allergies: No Known Allergies (Unverified , 01/05/18) Objective Last 24 Hour Vital Signs Date Time Temp Pulse Resp B/P (MAP) Pulse Ox O2 Delivery O2 Flow Rate FiO2 04/18/20 12:00 98.8 86 19 110/67 (81) 95 04/18/20 11:29 Room Air Room Air 04/18/20 09:00 106/69 04/18/20 08:00 97.5 70 17 106/69 (81) 95 04/18/20 04:00 97.6 79 20 99/78 (85) 95 04/18/20 00:00 97.9 79 20 111/42 (65) 96 04/17/20 21:00 Room Air Room Air 04/17/20 20:00 98.1 86 20 111/44 (66) 93 04/17/20 16:00 98.1 100 19 113/75 (88) 95 Height (Feet): 5 Height (Inches): 3.00 Weight (Pounds): 54 HEENT: mucous membranes moist Respiratory/Chest: lungs clear Cardiovascular: normal rate Abdomen: soft, non tender, other - GT feeding Extremities: no edema Neurologic/Psychiatric: alert, responsive Laboratory Tests Test 04/18/20 05:40 White Blood Count 13.6 K/UL (4.8-10.8) H Red Blood Count 3.80 M/UL (4.20-5.40) L Hemoglobin 11.9 G/DL (12.0-16.0) L Hematocrit 37.0 % (37.0-47.0) Mean Corpuscular Volume 97 FL (80-99) Mean Corpuscular Hemoglobin 31.2 PG (27.0-31.0) H Mean Corpuscular Hemoglobin Concent 32.0 G/DL (32.0-36.0) Red Cell Distribution Width 14.5 % (11.6-14.8) Platelet Count 284 K/UL (150-450) Mean Platelet Volume 6.8 FL (6.5-10.1) Neutrophils (%) (Auto) 60.9 % (45.0-75.0) Lymphocytes (%) (Auto) 29.0 % (20.0-45.0) Monocytes (%) (Auto) 6.4 % (1.0-10.0) Eosinophils (%) (Auto) 3.0 % (0.0-3.0) Basophils (%) (Auto) 0.7 % (0.0-2.0) Sodium Level 139 MMOL/L (136-145) Potassium Level 5.6 MMOL/L (3.5-5.1) H Chloride Level 106 MMOL/L (98-107) Carbon Dioxide Level 29 MMOL/L (21-32) Anion Gap 4 mmol/L (5-15) L Blood Urea Nitrogen 23 mg/dL (7-18) H Creatinine 0.9 MG/DL (0.55-1.30) Estimat Glomerular Filtration Rate > 60 mL/min (>60) Glucose Level 106 MG/DL (74-106) Calcium Level 9.1 MG/DL (8.5-10.1) Total Bilirubin 0.3 MG/DL (0.2-1.0) Aspartate Amino Transf (AST/SGOT) 19 U/L (15-37) Alanine Aminotransferase (ALT/SGPT) 11 U/L (12-78) L Alkaline Phosphatase 61 U/L (46-116) Total Protein 5.6 G/DL (6.4-8.2) L Albumin 2.2 G/DL (3.4-5.0) L Globulin 3.4 g/dL Albumin/Globulin Ratio 0.6 (1.0-2.7) L Current Medications Medications (Trade) Dose Ordered Sig/Geoffrey Route PRN Reason Start Time Stop Time Status Last Admin Dose Admin Acetaminophen/ Codeine Phosphate (Tylenol #3) 1 tab EVERY 8 HOURS PRN ORAL For Pain 04/15/20 12:30 04/22/20 12:29 Docusate Sodium (Colace) 100 mg TWICE A DAY GT 04/11/20 18:00 05/11/20 17:59 04/18/20 10:35 Heparin Sodium (Porcine) (Heparin 5000 units/ml) 5,000 units EVERY 12 HOURS SUBQ 04/08/20 09:00 05/23/20 08:59 04/18/20 10:42 Lansoprazole (Prevacid) 30 mg DAILY GT 04/11/20 15:00 05/11/20 14:59 04/18/20 10:34 Levothyroxine Sodium (Synthroid) 75 mcg DAILY@0630 GT 04/12/20 06:30 05/07/20 15:59 04/18/20 05:30 Losartan Potassium (Cozaar) 50 mg DAILY GT 04/11/20 13:30 05/07/20 13:29 04/17/20 08:32 Meropenem 500 mg/ Sodium Chloride 55 ml @ 110 mls/hr EVERY 8 HOURS IVPB 04/16/20 14:00 04/21/20 13:59 04/18/20 13:43 Metoclopramide HCl (Reglan) 10 mg THREE TIMES A DAY ORAL 04/17/20 18:00 05/17/20 17:59 04/18/20 13:41 Mirtazapine (Remeron) 30 mg BEDTIME GT 04/11/20 21:00 07/09/20 20:59 04/17/20 20:46 Multivitamins (Multivitamins W/ Minerals 15ml Liquid) 15 ml DAILY GT 04/11/20 13:30 05/11/20 13:29 04/18/20 10:33 Pregabalin (Lyrica) 50 mg BID ORAL 04/07/20 18:00 05/07/20 17:59 04/18/20 10:34 Dante Domingo MD Apr 18, 2020 15:07
[2020-04-18 16:00] VITALS: BP 111/70
[2020-04-18] MEDS ORDERED: REGLAN10 MG ORAL (16:52)
[2020-04-18] MEDS ORDERED: MEROPENEM500 MG IVPB (16:53)
[2020-04-18] MEDS ORDERED: Sodium Polystyrene Sulfonate 15gm Powder ORAL SCH (17:00)
--- NOTE | 2020-04-18 18:00 | NUR ---
NURSE NOTES: DR Murillo updated on patient G-tube residuals,will continue to monitor.HOB elevated,bed alarm on.
--- NOTE | 2020-04-18 19:25 | NUR ---
NURSE HAND-OFF: Dejuan MCKENZIE Important Events on Shift:[G-tube residuals ] Patient Status: []potassium today5.6,patient received Kayexalate. Diet: [Vital AF 1.2 at 50 cc/hr] Pending Orders: [] Pending Results/Labs:[] Pending MD notification:[] Latest Vital Signs: Temperature 98.8 , Pulse 78 , B/P 111 /70 , Respiratory Rate 19 , O2 SAT 96 , Room Air, O2 Flow Rate 3 . Vital Sign Comment: [] Latest Henderson Fall Score: 50 Fall Risk: High Risk Safety Measures: Call light Within Reach, Bed Alarm Zone 1, Side Rails Side Rails x3, Bed position Low and Locked. Fall Precautions: Yellow Socks Yellow Gown Door Sign Patient Fall Education Report given to [].
--- NOTE | 2020-04-18 19:30 | NUR ---
NURSE NOTES: Patient asleep in bed, on room air. Gtube feeding on hold due to increased residual per AM RN. Will check again later. IV access on right hand. Bed in lowest, lock engaged and alarm on. Will continue to monitor.
[2020-04-18 20:00] VITALS: BP 112/60
--- NOTE | 2020-04-18 22:12 | General Progress Note ---
Subjective Allergies: Coded Allergies: No Known Allergies (Unverified , 01/05/18) Subjective Above noted no events overnight Objective Last 24 Hour Vital Signs Date Time Temp Pulse Resp B/P (MAP) Pulse Ox O2 Delivery O2 Flow Rate FiO2 04/18/20 21:00 Room Air Room Air 04/18/20 20:00 97.6 70 18 112/60 (77) 94 04/18/20 16:00 98.8 78 19 111/70 (84) 96 04/18/20 12:00 98.8 86 19 110/67 (81) 95 04/18/20 11:29 Room Air Room Air 04/18/20 09:00 106/69 04/18/20 08:00 97.5 70 17 106/69 (81) 95 04/18/20 04:00 97.6 79 20 99/78 (85) 95 04/18/20 00:00 97.9 79 20 111/42 (65) 96 Intake and Output 04/17/20 04/18/20 19:00 07:00 Intake Total 250 ml Output Total 450 ml Balance 250 ml -450 ml Free Water 100 ml Tube Feeding 150 ml Output Urine Total 450 ml # Voids 4 # Bowel Movements 1 Laboratory Tests 04/18/20 05:40: White Blood Count 13.6H, Red Blood Count 3.80L, Hemoglobin 11.9L, Hematocrit 37.0, Mean Corpuscular Volume 97, Mean Corpuscular Hemoglobin 31.2H, Mean Corpuscular Hemoglobin Concent 32.0, Red Cell Distribution Width 14.5, Platelet Count 284, Mean Platelet Volume 6.8, Neutrophils (%) (Auto) 60.9, Lymphocytes (%) (Auto) 29.0, Monocytes (%) (Auto) 6.4, Eosinophils (%) (Auto) 3.0, Basophils (%) (Auto) 0.7, Sodium Level 139, Potassium Level 5.6H, Chloride Level 106, Carbon Dioxide Level 29, Anion Gap 4L, Blood Urea Nitrogen 23H, Creatinine 0.9, Estimat Glomerular Filtration Rate > 60, Glucose Level 106, Calcium Level 9.1, Total Bilirubin 0.3, Aspartate Amino Transf (AST/SGOT) 19, Alanine Aminot ransferase (ALT/SGPT) 11L, Alkaline Phosphatase 61, Total Protein 5.6L, Albumin 2.2L, Globulin 3.4, Albumin/Globulin Ratio 0.6L Height (Feet): 5 Height (Inches): 3.00 Weight (Pounds): 54 Objective Debilitated woman NCAT supple CTA RR abd soft, (+) GT no edema Assessment/Plan Status: stable, deteriorating Assessment/Plan: Assessment - encephalopathy / catatonia - FTT, poor po --> s/p PEG - TF intolerance - CVA - HTN Recommendation - Continue TF - short term Reglan - replace lytes PRN - elevate HOB - monitor residuals - consider motility agents Arron Knutson MD Apr 18, 2020 22:12
--- NOTE | 2020-04-18 23:27 | Cardiology Progress Note ---
Subjective DATE OF SERVICE: Apr 18, 2020 s/p PEG with feedings still not being fully tolerated; still with residuals. 2D Echo revealed Normal LV ejection fxn and no significant valvular disease WBC elevations over past 2 days. Urine culture is positive for ESBL E.coli. Objective Last 24 Hour Vital Signs Date Time Temp Pulse Resp B/P (MAP) Pulse Ox O2 Delivery O2 Flow Rate FiO2 04/18/20 21:00 Room Air Room Air 04/18/20 20:00 97.6 70 18 112/60 (77) 94 04/18/20 16:00 98.8 78 19 111/70 (84) 96 04/18/20 12:00 98.8 86 19 110/67 (81) 95 04/18/20 11:29 Room Air Room Air 04/18/20 09:00 106/69 04/18/20 08:00 97.5 70 17 106/69 (81) 95 04/18/20 04:00 97.6 79 20 99/78 (85) 95 04/18/20 00:00 97.9 79 20 111/42 (65) 96 ROS: unchanged from my evaluation of 04/07/12 RHYTHM: NSR LUNGS: lungs clear bilaterally CARDIAC: normal rate, regular rhythm, normal S1 and S2, gallop/S4 ABDOMEN: normal bowel sounds, non tender, soft, no organomegaly, G-Tube intact EXTREMITIES: normal range of motion, No edema Laboratory Tests Test 04/18/20 05:40 White Blood Count 13.6 K/UL (4.8-10.8) H Red Blood Count 3.80 M/UL (4.20-5.40) L Hemoglobin 11.9 G/DL (12.0-16.0) L Hematocrit 37.0 % (37.0-47.0) Mean Corpuscular Volume 97 FL (80-99) Mean Corpuscular Hemoglobin 31.2 PG (27.0-31.0) H Mean Corpuscular Hemoglobin Concent 32.0 G/DL (32.0-36.0) Red Cell Distribution Width 14.5 % (11.6-14.8) Platelet Count 284 K/UL (150-450) Mean Platelet Volume 6.8 FL (6.5-10.1) Neutrophils (%) (Auto) 60.9 % (45.0-75.0) Lymphocytes (%) (Auto) 29.0 % (20.0-45.0) Monocytes (%) (Auto) 6.4 % (1.0-10.0) Eosinophils (%) (Auto) 3.0 % (0.0-3.0) Basophils (%) (Auto) 0.7 % (0.0-2.0) Sodium Level 139 MMOL/L (136-145) Potassium Level 5.6 MMOL/L (3.5-5.1) H Chloride Level 106 MMOL/L (98-107) Carbon Dioxide Level 29 MMOL/L (21-32) Anion Gap 4 mmol/L (5-15) L Blood Urea Nitrogen 23 mg/dL (7-18) H Creatinine 0.9 MG/DL (0.55-1.30) Estimat Glomerular Filtration Rate > 60 mL/min (>60) Glucose Level 106 MG/DL (74-106) Calcium Level 9.1 MG/DL (8.5-10.1) Total Bilirubin 0.3 MG/DL (0.2-1.0) Aspartate Amino Transf (AST/SGOT) 19 U/L (15-37) Alanine Aminotransferase (ALT/SGPT) 11 U/L (12-78) L Alkaline Phosphatase 61 U/L (46-116) Total Protein 5.6 G/DL (6.4-8.2) L Albumin 2.2 G/DL (3.4-5.0) L Globulin 3.4 g/dL Albumin/Globulin Ratio 0.6 (1.0-2.7) L Assessment/Plan Assessment/Plan Failure to thrive UTI - hospital acquired Dysphagia - s/p PEG Gastroparesis Decubiti Hypokalemia Hypomagnesemia Hypernatremia Dehydration/hypovolemia Mod-severe protein-calorie malnutrition CVA/dementia Hypertension/HHD - now with low-normal BP range Hypothyroidism DC losartan for now IV antibiotics per ID. Replace K+/Mg++ as needed Off IVF DVT prophyl DC planning discussed with patient's brother yesterday; he wants patient to discharge to [facility] Chaim De Luna MD Apr 18, 2020 23:27
[2020-04-19] VITALS: BP 101/71
[2020-04-19 04:00] VITALS: BP 101/71
[2020-04-19] MEDS: Meropenem 500 MG in NS 55 ML IVPB SCH (05:25)
--- NOTE | 2020-04-19 06:51 | NUR ---
NURSE HAND-OFF: Important Events on Shift: no BM, less residual Patient Status: Diet: Vital AF 1.2 Pending Orders: Pending Results/Labs: Pending MD notification: Latest Vital Signs: Temperature 98.2 , Pulse 84 , B/P 101 /71 , Respiratory Rate 18 , O2 SAT 94 , Room Air, O2 Flow Rate 3 . Vital Sign Comment: Latest Henderson Fall Score: 50 Fall Risk: High Risk Safety Measures: Call light Within Reach, Bed Alarm Zone 1, Side Rails Side Rails x3, Bed position Low and Locked. Fall Precautions: Yellow Socks Yellow Gown Door Sign Patient Fall Education
--- NOTE | 2020-04-19 07:16 | NUR ---
NURSE NOTES: Dr. Murillo made aware of patient's less residual and no BM after Kayexalate was given.
--- NOTE | 2020-04-19 07:27 | NUR ---
HAND-OFF: Report given to JONAH Krause.
--- NOTE | 2020-04-19 07:31 | NUR ---
NURSE NOTES: Report received from LEANDRO Zaidi. Patient in bed, non verbal at this time but responsive to verbal and tactile stimuli, no SOB, bed in lowest position with breaks engaged and alarm on, on room air, no s/sx of pain or discomfort upon assessment, IV line patent on right hand, GT intact and in place with VITAL AF running at 50 cc/hr, will continue to monitor and proceed with plan of care, call light within reach
[2020-04-19 08:00] VITALS: BP 112/66
[2020-04-19] MEDS: Docusate 100mg/10ml Liq GT SCH (08:26)
[2020-04-19] MEDS: Lyrica 50mg cap ORAL SCH (08:27)
[2020-04-19] MEDS: Heparin 5000 units/ml inj SUBQ SCH (08:28)
[2020-04-19] MEDS: Multivitamins W/Minerals 15 ML UDC GT SCH (09:04)
--- NOTE | 2020-04-19 09:36 | NUR ---
*-*DISCHARGE PLANNED*-* PATIENT HAS BEEN ACCEPTED AND WILL BE DISCHARGED TO: [facility] P: [phone] FOR NURSE TO NURSE REPORT ROOM# 13.[facility] SET FOR 11:30AM S/W MARIA G [id number]. S/W PATIENT BROTHER MESERET THOMAS, WHO IS IN AGREEMENT WITH DISCHARGE PLAN.
--- NOTE | 2020-04-19 10:15 | Discharge Summary ---
DATE OF ADMISSION: 04/07/2020 DATE OF DISCHARGE: 04/19/2020 ADMISSION DIAGNOSES: 1. Anorexia. 2. Failure to thrive. 3. UTI. 4. Dehydration. 5. Hypothyroidism. 6. Obesity. 7. History of stable angina. DISCHARGE DIAGNOSES: 1. Anorexia. 2. Failure to thrive. 3. UTI. 4. Dehydration. 5. Hypothyroidism. 6. Obesity. 7. History of stable angina. HOSPITAL COURSE: The patient was admitted with complaints of poor p.o. intake, UTI, dehydration. She was hydrated. She passed swallow evaluation but refused to eat. She was seen by GI and was after discussion with family members, a G-tube was placed. Her hospital course was complicated by difficulty tolerating feedings, but eventually the patient did tolerate feeds. On discharge, she was stable. Family elected to send her today assisted facility. DISCHARGE MEDICATIONS: Please see discharge medication list for discharge medications. DIET: G-tube feedings. ACTIVITY: Ad-juan. FOLLOWUP: The patient followup in one to two at assisted facility. Tino Murillo M.D. DR: Joan JOB#: [id number] CC:
--- NOTE | 2020-04-19 10:49 | Infectious Diseases Prog Note ---
Assessment/Plan Assessment/Plan antibiotics : meropenem A 1. e.coli UTI 2. hypertension 3. leucocytosis 4. MRSA nasal colonization P 1, continue meropenem 2 more days 2. will follow up cultures Subjective ROS Limited/Unobtainable: Yes Allergies: Coded Allergies: No Known Allergies (Unverified , 01/05/18) Objective Last 24 Hour Vital Signs Date Time Temp Pulse Resp B/P (MAP) Pulse Ox O2 Delivery O2 Flow Rate FiO2 04/19/20 09:00 Room Air Room Air 04/19/20 08:00 97.9 79 18 112/66 (81) 96 04/19/20 04:00 98.2 84 18 101/71 (81) 94 04/19/20 00:00 98.1 73 18 101/71 (81) 94 04/18/20 21:00 Room Air Room Air 04/18/20 20:00 97.6 70 18 112/60 (77) 94 04/18/20 16:00 98.8 78 19 111/70 (84) 96 04/18/20 12:00 98.8 86 19 110/67 (81) 95 04/18/20 11:29 Room Air Room Air Height (Feet): 5 Height (Inches): 3.00 Weight (Pounds): 54 Respiratory/Chest: lungs clear Cardiovascular: normal rate, regular rhythm, no gallop/murmur Abdomen: soft, non tender, other - GT Extremities: no edema Current Medications Medications (Trade) Dose Ordered Sig/Geoffrey Route PRN Reason Start Time Stop Time Status Last Admin Dose Admin Acetaminophen/ Codeine Phosphate (Tylenol #3) 1 tab EVERY 8 HOURS PRN ORAL For Pain 04/15/20 12:30 04/22/20 12:29 Docusate Sodium (Colace) 100 mg TWICE A DAY GT 04/11/20 18:00 05/11/20 17:59 04/19/20 08:26 Heparin Sodium (Porcine) (Heparin 5000 units/ml) 5,000 units EVERY 12 HOURS SUBQ 04/08/20 09:00 05/23/20 08:59 04/19/20 08:28 Lansoprazole (Prevacid) 30 mg DAILY GT 04/11/20 15:00 05/11/20 14:59 04/19/20 08:27 Levothyroxine Sodium (Synthroid) 75 mcg DAILY@0630 GT 04/12/20 06:30 05/07/20 15:59 04/19/20 05:33 Meropenem 500 mg/ Sodium Chloride 55 ml @ 110 mls/hr EVERY 8 HOURS IVPB 04/16/20 14:00 04/21/20 13:59 04/19/20 05:25 Metoclopramide HCl (Reglan) 10 mg THREE TIMES A DAY ORAL 04/17/20 18:00 05/17/20 17:59 04/19/20 08:27 Mirtazapine (Remeron) 30 mg BEDTIME GT 04/11/20 21:00 07/09/20 20:59 04/18/20 21:55 Multivitamins (Multivitamins W/ Minerals 15ml Liquid) 15 ml DAILY GT 04/11/20 13:30 05/11/20 13:29 04/19/20 09:04 Pregabalin (Lyrica) 50 mg BID ORAL 04/07/20 18:00 05/07/20 17:59 04/19/20 08:27 Alvin Eller MD Apr 19, 2020 10:49
[2020-04-19 12:00] VITALS: BP 106/69
[2020-04-19 12:01] LABS: BASOPHILS % (AUTO) 0.7 % (0.0-2.0); EOSINOPHILS % (AUTO) 2.2 % (0.0-3.0); HEMATOCRIT 40.6 % (37.0-47.0); HEMOGLOBIN 13.4 G/DL (12.0-16.0); LYMPHOCYTES % (AUTO) 21.6 % (20.0-45.0); MEAN CORPUSCULAR VOLUME 97 FL (80-99); MONOCYTES % (AUTO) 4.8 % (1.0-10.0); NEUTROPHILS % (AUTO) 70.8 % (45.0-75.0); PLATELET COUNT 337 K/UL (150-450); RED BLOOD COUNT 4.19 M/UL (4.20-5.40); RED CELL DISTRIBUTION WIDTH 14.3 % (11.6-14.8); WHITE BLOOD COUNT 14.6 K/UL (4.8-10.8)
[2020-04-19 12:14] LABS: ANION GAP 5 mmol/L (5-15); BLOOD UREA NITROGEN 21 mg/dL (7-18); CALCIUM 8.9 MG/DL (8.5-10.1); CARBON DIOXIDE 30 MMOL/L (21-32); CHLORIDE 105 MMOL/L (98-107); CREATININE 0.8 MG/DL (0.55-1.30); POTASSIUM 4.9 MMOL/L (3.5-5.1); SODIUM 140 MMOL/L (136-145)
--- NOTE | 2020-04-19 12:14 | NUR ---
CHARGE NURSE NOTE: WBC 14.6. Pt is scheduled for d/c to SNF. notified. Received Ok to discharge pt. (pt on Meropenem iv for 3 days).
--- NOTE | 2020-04-19 12:51 | NUR ---
NURSE NOTES: Patient was discharged to [facility], discharge paper works completed, no missing belongings noted, ID band removed. Pt was discharged with IV line on right hand, Dr Murillo aware. Denies any pain or discomfort upon discharge, VS WNL, brother (Pete Michel) is aware of discharge, left in stable condition accompanied by 2 brand protection manager at 1305.
--- NOTE | 2020-04-19 18:32 | General Progress Note ---
Subjective Allergies: Coded Allergies: No Known Allergies (Unverified , 01/05/18) Subjective Above noted no events overnight for discharge today Objective Last 24 Hour Vital Signs Date Time Temp Pulse Resp B/P (MAP) Pulse Ox O2 Delivery O2 Flow Rate FiO2 04/19/20 12:00 97.5 70 17 106/69 (81) 95 04/19/20 09:00 Room Air Room Air 04/19/20 08:00 97.9 79 18 112/66 (81) 96 04/19/20 04:00 98.2 84 18 101/71 (81) 94 04/19/20 00:00 98.1 73 18 101/71 (81) 94 04/18/20 21:00 Room Air Room Air 04/18/20 20:00 97.6 70 18 112/60 (77) 94 Intake and Output 04/18/20 04/19/20 19:00 07:00 Intake Total 605 ml 660 ml Output Total 1500 ml Balance 605 ml -840 ml Free Water 100 ml 100 ml IV Total 55 ml 110 ml Tube Feeding 450 ml 450 ml Output Urine Total 1500 ml Laboratory Tests 04/19/20 11:25: White Blood Count 14.6H, Red Blood Count 4.19L, Hemoglobin 13.4, Hematocrit 40.6, Mean Corpuscular Volume 97, Mean Corpuscular Hemoglobin 32.0H, Mean Corpuscular Hemoglobin Concent 33.1, Red Cell Distribution Width 14.3, Platelet Count 337, Mean Platelet Volume 6.7, Neutrophils (%) (Auto) 70.8, Lymphocytes (%) (Auto) 21.6, Monocytes (%) (Auto) 4.8, Eosinophils (%) (Auto) 2.2, Basophils (%) (Auto) 0.7, Sodium Level 140, Potassium Level 4.9, Chloride Level 105, Carbon Dioxide Level 30, Anion Gap 5, Blood Urea Nitrogen 21H, Creatinine 0.8, Estimat Glomerular Filtration Rate > 60, Glucose Level 107H, Calcium Level 8.9 Height (Feet): 5 Height (Inches): 3.00 Weight (Pounds): 54 Objective Debilitated woman NCAT supple CTA RR abd soft, (+) GT no edema Assessment/Plan Status: stable, deteriorating Assessment/Plan: Assessment - encephalopathy / catatonia - FTT, poor po --> s/p PEG - TF intolerance - CVA - HTN Recommendation - Continue TF - short term Reglan - replace lytes PRN - elevate HOB - monitor residuals - consider motility agents Arron Knutson MD Apr 19, 2020 18:32
--- NOTE | 2020-04-20 00:04 | Cardiology Progress Note ---
Subjective DATE OF SERVICE: Apr 19, 2020 s/p PEG with feedings now tolerated without residuals. 2D Echo revealed Normal LV ejection fxn and no significant valvular disease Urine culture was positive for ESBL E.coli; antimicrobial rx completed. Objective Last 24 Hour Vital Signs Date Time Temp Pulse Resp B/P (MAP) Pulse Ox O2 Delivery O2 Flow Rate FiO2 04/19/20 12:00 97.5 70 17 106/69 (81) 95 04/19/20 09:00 Room Air Room Air 04/19/20 08:00 97.9 79 18 112/66 (81) 96 04/19/20 04:00 98.2 84 18 101/71 (81) 94 ROS: unchanged from my evaluation of 04/07/12 LUNGS: lungs clear bilaterally CARDIAC: normal rate, regular rhythm, normal S1 and S2, gallop/S4 ABDOMEN: normal bowel sounds, non tender, soft, no organomegaly, G-Tube intact EXTREMITIES: normal range of motion, No edema Laboratory Tests Test 04/19/20 11:25 White Blood Count 14.6 K/UL (4.8-10.8) H Red Blood Count 4.19 M/UL (4.20-5.40) L Hemoglobin 13.4 G/DL (12.0-16.0) Hematocrit 40.6 % (37.0-47.0) Mean Corpuscular Volume 97 FL (80-99) Mean Corpuscular Hemoglobin 32.0 PG (27.0-31.0) H Mean Corpuscular Hemoglobin Concent 33.1 G/DL (32.0-36.0) Red Cell Distribution Width 14.3 % (11.6-14.8) Platelet Count 337 K/UL (150-450) Mean Platelet Volume 6.7 FL (6.5-10.1) Neutrophils (%) (Auto) 70.8 % (45.0-75.0) Lymphocytes (%) (Auto) 21.6 % (20.0-45.0) Monocytes (%) (Auto) 4.8 % (1.0-10.0) Eosinophils (%) (Auto) 2.2 % (0.0-3.0) Basophils (%) (Auto) 0.7 % (0.0-2.0) Sodium Level 140 MMOL/L (136-145) Potassium Level 4.9 MMOL/L (3.5-5.1) Chloride Level 105 MMOL/L (98-107) Carbon Dioxide Level 30 MMOL/L (21-32) Anion Gap 5 mmol/L (5-15) Blood Urea Nitrogen 21 mg/dL (7-18) H Creatinine 0.8 MG/DL (0.55-1.30) Estimat Glomerular Filtration Rate > 60 mL/min (>60) Glucose Level 107 MG/DL (74-106) H Calcium Level 8.9 MG/DL (8.5-10.1) Assessment/Plan Assessment/Plan Failure to thrive UTI - hospital acquired Dysphagia - s/p PEG Gastroparesis Decubiti Hypokalemia Hypomagnesemia Hypernatremia Dehydration/hypovolemia Mod-severe protein-calorie malnutrition CVA/dementia Hypertension/HHD - now with low-normal BP range Hypothyroidism Continue to hold losartan and antiHTN meds. IV antibiotics to be completed at SNF per ID. DC planning discussed with patient's brother discharge planned today to [facility] Chaim De Luna MD Apr 20, 2020 00:04
== END 2020-04-19 13:05 | DRG 391 ==
LOC: EDBD 11:58 → EMR 12:38 → 2E 12:46 → 4E 12:46 → UNDOADMIN 12:46 → EDBEDREQ 14:10 → 2E 04-09 15:38 → 4E 04-10 08:00
PROC: 0DH63UZ Insertion of Feeding Device into Stomach, Percutaneous Approach (ICD-10-PCS; principal; 2020-04-11 09:51)
DX: R13.10 Dysphagia, unspecified (principal); E43 Unspecified severe protein-calorie malnutrition; G93.40 Encephalopathy, unspecified; I50.32 Chronic diastolic (congestive) heart failure; E87.2 Acidosis; N39.0 Urinary tract infection, site not specified; Z16.12 Extended spectrum beta lactamase (ESBL) resistance; E87.0 Hyperosmolality and hypernatremia; Z68.22 Body mass index [BMI] 22.0-22.9, adult; E87.6 Hypokalemia; E86.0 Dehydration; R62.7 Adult failure to thrive; L89.90 Pressure ulcer of unspecified site, unspecified stage; E03.9 Hypothyroidism, unspecified; F01.50 Vascular dementia, unspecified severity, without behavioral disturbance, psychotic disturbance, mood disturbance, and anxiety; I11.9 Hypertensive heart disease without heart failure; Z86.19 Personal history of other infectious and parasitic diseases; F41.9 Anxiety disorder, unspecified; B96.20 Unspecified Escherichia coli [E. coli] as the cause of diseases classified elsewhere; Z22.322 Carrier or suspected carrier of Methicillin resistant Staphylococcus aureus; I20.8 Other forms of angina pectoris; I69.319 Unspecified symptoms and signs involving cognitive functions following cerebral infarction; E83.42 Hypomagnesemia; E66.9 Obesity, unspecified; F32.9 Major depressive disorder, single episode, unspecified
CPT/HCPCS: 36415; 71045; 74018; 80048; 80053; 81003; 82553; 82803; 83605; 83735; 83880; 84443; 84484; 85025; 85610; 85730; 87040; 87081; 87086; 87181; 93005; 93306; 94003; 94150; 96360; 99285; J7030; J8499; U0002